=== PATIENT | female | born 1955 | race Caucasian/White ===

== ENCOUNTER 2017-06-26 11:13 | Inpatient (IN) | payer MEDICARE, MEDICAID ==
--- NOTE | 2017-06-26 12:02 | ED Physician Chart ---
ED Chief Complaint/HPI - Patient Information Date Seen:: 06/26/17 Time Seen:: 12:01 Chief Complaint:: PAINFUL RIGHT KNEE FOR MULTIPLE WEEKS AGO. History of Present Illness:: THIS 61 YEAR OLD FEMALE HAD KNEE REPLACEMENT SURG MANY YEARS AGO. SHE HAS HAD PAIN IN THE KNEE EVER SINCE THE SURGERY. SHE HAS HAD INCREASED PAIN IN THE KNEE OVER THE PAS NUMBER OVER THE PAST COUPLE OF WEEKS. SHE HAS HAD NO ASSOCIATED FEVER ORFEW THE PAIN LEVEL IS 10/10 IN SEVERITY. SHE IS UNABLE TO WEIGHT BEAR WITH THE RT LOWER EXTREMITY. SHE DENIES ANY FALLS OR TRAUMA TO THE RT KNEE, THE KNEE IS MORE SWOLLEN AND HASTURNED RED. SHE HAS NO ROM IN THE RT KNEE DUE TO SEVERE PAIN. Allergies:: Allergies Allergy/AdvReac Type Severity Reaction Status Date / Time aspirin Allergy Verified 06/26/17 11:45 codeine Allergy Verified 06/26/17 11:45 Vitals:: Vital Signs - 8 hr 06/26/17 11:45 Temp 98.4 F HR 98 RR 20 BP 120/65 O2 Sat % 96 ED Past Medical History - Past Medical History Past Medical History: DM, CAD, Dyslipidemia, Dementia ( OSTEOARTHRITIS, NON- SMOKER, NO ALCOHOL, NO DRUG USE), Other Family Medical History - Family Member Mother History Unknown: Yes ED Physical Exam - Physical Examination General/Constitutional: Awake, Well-developed, well-nourished, Non-toxic appearing Other Gen/Cons comments:: SEVERE DISTRESS FROM PAIN IN THE RIGHT KNEE. Eyes: PERRL, EOMI Skin: No rash, No skin lesions, No ecchymosis, Well hydrated, No lymphadenopathy ENMT: External ears, nose nl, Nasal exam nl, Lips, teeth, gums nl, Tonsils nl Other ENMT comments:: GOOD HYDRATION Neck: Nontender, No JVD, No nuchal rigidity, No mass Cardio Vascular: No murmur, gallop, rubs, NL S1 S2, Carotid/Femoral/Distal pulses equal bilaterally GI: No tenderness/rebounding/guarding, No organomegaly, No hernia, Normal BS's, Nondistended, No mass/bruits, No McBurney tenderness ( RECTAL EXAM DEFERRED AT MY DISCRETION.) : No CVA tenderness Other comments:: PELVIC EXAM DEFERRED. Other Misc comments:: RIGHT HIP IS MARKEDLY SWOLLEN AND WITH A REDDISH BLUE DISCOLORATION. THERE IS NO RANGE OF MOTION DUE TO SEVERE PAIN. DISTAL SENSATION IS INTACT TO LIGHT TOUCH. PEOPLE PULSES ARE INTACT IN BOTH LOWER EXTREMITIES. ED Labs/Radiology/EKG Results - Lab Results Results: Laboratory Results - last 24 hr 06/26/17 06/26/17 12:40 12:40 WBC 9.0 RBC 3.85 Hgb 11.7 L Hct 35.3 L MCV 91.7 MCH 30.4 MCHC Differential 33.2 RDW 13.0 Plt Count 333 MPV 7.1 Neutrophils % 67.3 Lymphocytes % 20.9 Monocytes % 8.2 Eosinophils % 2.8 Basophils % 0.8 Sodium 134 L Potassium 3.9 Chloride 103 Carbon Dioxide 26.0 Anion Gap 8.9 BUN 21 Creatinine 0.6 Est GFR ( Amer) > 60.0 Est GFR (Non-Af Amer) > 60.0 BUN/Creatinine Ratio 35.0 Glucose 189 H Calcium 8.9 Total Bilirubin 0.4 AST 19 ALT 35 Alkaline Phosphatase 412 H Total Protein 6.3 Albumin 3.6 L Globulin 2.7 Albumin/Globulin Ratio 1.3 Laboratory Last Values WBC 9.0 Th/cmm (4.8-10.8) 06/26/17 12:40 RBC 3.85 Mil/cmm (3.80-5.10) 06/26/17 12:40 Hgb 11.7 gm/dL (12-16) L 06/26/17 12:40 Hct 35.3 % (41.0-60) L 06/26/17 12:40 MCV 91.7 fl (81-100) 06/26/17 12:40 MCH 30.4 pg (27.0-31.0) 06/26/17 12:40 MCHC Differential 33.2 pg (28.0-36.0) 06/26/17 12:40 RDW 13.0 % (11.5-20.0) 06/26/17 12:40 Plt Count 333 Th/cmm (150-400) 06/26/17 12:40 MPV 7.1 fl 06/26/17 12:40 Neutrophils % 67.3 % (40.0-80.0) 06/26/17 12:40 Lymphocytes % 20.9 % (20.0-50.0) 06/26/17 12:40 Monocytes % 8.2 % (2.0-10.0) 06/26/17 12:40 Eosinophils % 2.8 % (0.0-5.0) 06/26/17 12:40 Basophils % 0.8 % (0.0-2.0) 06/26/17 12:40 Sodium 134 mEq/L (136-145) L 06/26/17 12:40 Potassium 3.9 mEq/L (3.5-5.1) 06/26/17 12:40 Chloride 103 mEq/L (98-107) 06/26/17 12:40 Carbon Dioxide 26.0 mEq/L (21.0-31.0) 06/26/17 12:40 Anion Gap 8.9 (7.0-16.0) 06/26/17 12:40 BUN 21 mg/dL (7-25) 06/26/17 12:40 Creatinine 0.6 mg/dL (0.6-1.2) 06/26/17 12:40 Est GFR ( Amer) > 60.0 ml/min (>90) 06/26/17 12:40 Est GFR (Non-Af Amer) > 60.0 ml/min 06/26/17 12:40 BUN/Creatinine Ratio 35.0 06/26/17 12:40 Glucose 189 mg/dL (70-105) H 06/26/17 12:40 Calcium 8.9 mg/dL (8.6-10.3) 06/26/17 12:40 Total Bilirubin 0.4 mg/dL (0.3-1.0) 06/26/17 12:40 AST 19 U/L (13-39) 06/26/17 12:40 ALT 35 U/L (7-52) 06/26/17 12:40 Alkaline Phosphatase 412 U/L (34-104) H 06/26/17 12:40 Total Protein 6.3 gm/dL (6.0-8.3) 06/26/17 12:40 Albumin 3.6 gm/dL (3.7-5.3) L 06/26/17 12:40 Globulin 2.7 gm/dL 06/26/17 12:40 Albumin/Globulin Ratio 1.3 (1.0-1.8) 06/26/17 12:40 X-RAY STUDIES OF THE RIGHT KNEE SHOWS A COMMINUTED OBLIQUE FRACTURE INVOLVING THE DISTAL FEMORAL CONDYLE. THE MECHANICAL HARDWARE IS DISPLACED FROM THE DISTAL FEMUR FRAGMENT. SKIN IS INTACT OVER THE KNEE. ED Assessment - Assessment General Assessment: CASE SUMMARY: THIS 61-YEAR-OLD FEMALE HAD A KNEE REPLACEMENT A NUMBER OF YEARS AGO. FOR THE PAST COUPLE OF WEEKS THE PATIENT HAS HAD INCREASED PAIN AND IS UNABLE TO WEIGHT BEAR. MANY ITSELF IS MARKEDLY SWOLLEN WITH OBLITERATION OF NORMAL LANDMARKS. X-RAY EXAMINATION SHOWS A COMMINUTED FRACTURE OF THE DISTAL FEMUR AND DISPLACEMENT OF THE MECHANICAL HARDWARE IN THE RIGHT KNEE. THE PATIENT WILL BE ADMITTED TO DR. AVILES WHO WILL OBTAIN ORTHOPEDIC CONSULTATION. ADMITTED TO A MEDICAL BED IN STABLE CONDITION. ED Septic Shock - . Is Septic Shock (SBP<90, OR Lactate>4 mmol\L) present?: No - <6hrs of presentation: Vital Signs: Vital Signs - 8 hr 06/26/17 11:45 Temp 98.4 F HR 98 RR 20 BP 120/65 O2 Sat % 96 ED Discharge Plan - Patient Disposition Admit/Discharge/Transfer: Acute Care w/in this hosp
[2017-06-26] MEDS ORDERED: Sodium Chloride 0.9% 1,000 ML IV ONE (12:31)
[2017-06-26 12:53] LABS: % BASOPHILS 0.8 % (0.0-2.0); % EOSINOPHILS 2.8 % (0.0-5.0); % LYMPHOCYTES 20.9 % (20.0-50.0); % MONOCYTES 8.2 % (2.0-10.0); % NEUTROPHILS 67.3 % (40.0-80.0); BASOPHILE ABSOLUTE 0.1 Th/cumm (0-0.2); EOSINOPHILE ABSOLUTE 0.3 Th/cmm (0.1-0.4); HEMATOCRIT 35.3 % (41.0-60); HEMOGLOBIN 11.7 gm/dL (12-16); LYMPHOCYTE ABSOLUTE 1.9 Th/cmm (1.5-3.0); MEAN CELL VOLUME 91.7 fl (81-100); MEAN CORPUSCULAR HEMOGLOBIN 30.4 pg (27.0-31.0); MEAN CORPUSCULAR HGB CONC 33.2 pg (28.0-36.0); MEAN PLATELET VOLUME 7.1 fl; MONOCYTE ABSOLUTE 0.7 Th/cmm (0.3-1.0); PLATELET COUNT 333 Th/cmm (150-400); RED BLOOD COUNT 3.85 Mil/cmm (3.80-5.10)
[2017-06-26 13:10] LABS: ALB/GLOB RATIO 1.3 (1.0-1.8); ALBUMIN 3.6 gm/dL (3.7-5.3); ALKALINE PHOSPHATASE 412 U/L (34-104); ANION GAP 8.9 (7.0-16.0); BILIRUBIN,TOTAL 0.4 mg/dL (0.3-1.0); BUN - UREA NITROGEN 21 mg/dL (7-25); CALCIUM SERUM 8.9 mg/dL (8.6-10.3); CHLORIDE 103 mEq/L (98-107); CREATININE - SERUM 0.6 mg/dL (0.6-1.2); GFR AFRICAN-AMERICAN > 60.0 ml/min (>90); GFR NON AFRICAN-AMERICAN > 60.0 ml/min; GLUCOSE 189 mg/dL (70-105); POTASSIUM SERUM 3.9 mEq/L (3.5-5.1); SGOT 19 U/L (13-39); SGPT/ALT 35 U/L (7-52); SODIUM SERUM 134 mEq/L (136-145); TOTAL PROTEIN,SERUM 6.3 gm/dL (6.0-8.3)
[2017-06-26] MEDS ORDERED: Morphine Sulfate 2 mg/mL 1mL Syr IVP PRN (16:51)
[2017-06-26] MEDS ORDERED: GLUCAGON HCl 1 MG KIT IM PRN (16:53)
[2017-06-26] MEDS ORDERED: Pneumococcal Vaccine 0.5 mL Vial IM ONE (18:38)
[2017-06-26 20:45] LABS: A1C % 5.9 % (4.0-6.0)
[2017-06-26] MEDS ORDERED: Non-Formulary Item 1 EA (Melatonin [Melatonin] 3 MG) PO SCH (21:00)
[2017-06-26] MEDS: Cefepime 1 GM in Sodium Chloride 0.9% 50 ML IV SCH (22:03)
--- NOTE | 2017-06-26 23:24 | History & Physical ---
ADMIT DATE: 06/26/2017 CHIEF COMPLAINT: Right knee swelling and pain. HISTORY OF PRESENT ILLNESS: This is a 61-year-old female with underlying history of old CVA, diabetes, hypertension, hyperlipidemia, DJD, prior history of hip and left knee fracture, who lives in a nursing facility, was reported to have right knee swelling and pain noticed by nursing staff, so the patient was sent to the Emergency Room where the patient had an x-ray of the right knee done suggestive of right knee fracture with possible septic arthritis was identified, so the patient was admitted for further treatments. The patient has underlying advanced dementia, very poor communication skills, unable to communicate well with the patient. She is well known to me from the [facility] stay. PAST MEDICAL HISTORY: As per HPI. PAST SURGICAL HISTORY: He had a hip surgery in the past. FAMILY HISTORY: Noncontributory. SOCIAL HISTORY: [facility] resident. No past or present alcohol, tobacco or street drug use. CURRENT MEDICATIONS: Levemir, Zestril, vancomycin, Lovenox, cefepime, Coreg, Concordia, Tylenol, morphine, Dilantin, Protonix. REVIEW OF SYSTEMS: Right knee pain. No fever, no chills, no diarrhea, no vomiting, no breathing difficulties, no chest pain or any other complaint reported. PHYSICAL EXAMINATION: VITAL SIGNS: Temperature 98.1, pulse 83, respirations 18, blood pressure 109/57. Pain 4/10. HEART: S1, S2 normal. LUNGS: Clear to auscultation. ABDOMEN: Soft, nontender, some distention noted. NEUROLOGIC: The patient is awake, but confused, grossly nonfocal. EXTREMITIES: Right knee swelling, warmth to touch, tender. Otherwise, negative for any leg swelling or calf tenderness noted. AVAILABLE LABORATORY DATA: WBC 9.0, hemoglobin 11.7, hematocrit 35.3, platelet 333. Sodium 130, potassium 3.9, BUN 23.6. A1c 5.9, AST 90, ALT 35, alkaline phosphatase 1412. Ammonia 93. Troponin less than 0.01, albumin 3.6. Serum ketones negative. ASSESSMENT: 1. Right distal femur fracture. 2. Right knee painful swelling, rule out septic arthritis. 3. Old cerebrovascular accident late effect. 4. Hypertension. 5. Dysphagia 6. Hyperlipidemia. 7. Hip and knee degenerative joint disease. 8. Dementia. 9. Psychiatric mental disorders. PLAN: The patient admitted to [facility]/surg floor. The patient was started on IV vancomycin and cefepime. ID was consulted. The patient is on IV morphine, Concordia for pain control. Ortho has been consulted. Ortho was notified about the right knee fracture results. The patient will be put on knee immobilizer. Further surgical plan per Orthopedic. The patient's home medications reconciled and continued. Blood sugar with Accu-Cheks. DVT prophylaxis with Lovenox. Home medication has been reconciled. The patient's condition and plan discussed with the nursing staff. JOB# [id number] ANGELY
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
[2017-06-27] MEDS: Pantoprazole 40 mg EC Tab PO SCH (07:04)
--- NOTE | 2017-06-27 07:48 | Diagnostic Imaging Report ---
Portable chest x-ray HISTORY: Cough The heart size is normal. Slight accentuation of the lower interstitial lung markings. A vertically oriented linear density seen in the right lower lobe most likely related to scarring. However, no other acute focal processes are seen. No hilar or mediastinal abnormalities. IMPRESSION: 1. Vertically oriented linear density within the right lower lobe probably related to scarring. Findings are associated with accentuation of the lower interstitial lung markings. However, no other focal processes are seen.
[2017-06-27] MEDS: Multivitamin w/ Minerals Tab PO SCH (09:05)
[2017-06-27] MEDS: Cefepime 1 GM in Sodium Chloride 0.9% 50 ML IV SCH ×2 (09:06→21:59)
[2017-06-27] MEDS: Enoxaparin 40 mg/0.4 mL 0.4mL Syr SUBQ SCH (09:07)
[2017-06-27] MEDS: Insulin Detemir 100 units/mL 10mL Vial SUBQ SCH (09:22)
--- NOTE | 2017-06-27 11:04 | Diagnostic Imaging Report ---
Right knee (4 views) HISTORY: Pain, trauma Exam demonstrates a severely displaced, comminuted, angulated fracture of the distal femur associated with an adjacent right knee arthroplasty. Severe extensive vascular calcification noted. IMPRESSION: 1. Right knee arthroplasty associated with a severely displaced, angulated fracture of the distal femur extending into the supracondylar region. 2. Severe atherosclerotic vascular changes
[2017-06-27] MEDS: Acetaminophen 500 MG TAB PO PRN (11:33)
[2017-06-27 14:36] LABS: ALB/GLOB RATIO 1.2 (1.0-1.8); ALBUMIN 3.3 gm/dL (3.7-5.3); ALKALINE PHOSPHATASE 361 U/L (34-104); ANION GAP 10.9 (7.0-16.0); BILIRUBIN,TOTAL 0.4 mg/dL (0.3-1.0); BUN - UREA NITROGEN 22 mg/dL (7-25); CALCIUM SERUM 8.8 mg/dL (8.6-10.3); CARBON DIOXIDE 21.3 mEq/L (21.0-31.0); CHLORIDE 104 mEq/L (98-107); CREATININE - SERUM 0.7 mg/dL (0.6-1.2); GFR AFRICAN-AMERICAN > 60.0 ml/min (>90); GFR NON AFRICAN-AMERICAN > 60.0 ml/min; GLUCOSE 188 mg/dL (70-105); POTASSIUM SERUM 4.2 mEq/L (3.5-5.1); SGOT 21 U/L (13-39); SGPT/ALT 27 U/L (7-52); SODIUM SERUM 132 mEq/L (136-145)
[2017-06-27 14:37] LABS: % BASOPHILS 0.4 % (0.0-2.0); % EOSINOPHILS 4.1 % (0.0-5.0); % LYMPHOCYTES 23.9 % (20.0-50.0); % MONOCYTES 5.7 % (2.0-10.0); % NEUTROPHILS 65.9 % (40.0-80.0); EOSINOPHILE ABSOLUTE 0.3 Th/cmm (0.1-0.4); HEMATOCRIT 33.3 % (41.0-60); HEMOGLOBIN 11.2 gm/dL (12-16); LYMPHOCYTE ABSOLUTE 1.7 Th/cmm (1.5-3.0); MEAN CELL VOLUME 90.8 fl (81-100); MEAN CORPUSCULAR HEMOGLOBIN 30.5 pg (27.0-31.0); MEAN CORPUSCULAR HGB CONC 33.6 pg (28.0-36.0); MONOCYTE ABSOLUTE 0.4 Th/cmm (0.3-1.0); NEUTROPHILE ABSOLUTE 4.8 Th/cmm (1.8-8.0); PLATELET COUNT 290 Th/cmm (150-400); RED BLOOD COUNT 3.67 Mil/cmm (3.80-5.10); RED CELL DISTRIBUTION WIDTH 12.8 % (11.5-20.0); WHITE BLOOD COUNT 7.2 Th/cmm (4.8-10.8)
--- NOTE | 2017-06-27 16:27 | Consultation ---
Consult Note - Consult Note Service Date: 06/27/17 Referring Physician: Nnamdi Jc Consult Note: PHYSICIAN Consultation Note: Date of Admission: 06/26/17 Purpose of Consultation: Chief Complaint: Patient SE LOYA was admitted to location Medical/ Surgical Unit I with RIGHT KNEE SWELLING. History of Present Illness: Patient is 61-year-old female with a past medical history of CVA, diabetes mellitus type 2, hypertension, hyperlipidemia, DJD, UTI, treated by Maxipine found to have swelling of right thigh and knee with right foot and leg where externally rotated. X-ray suggested angulated fracture of right distal femur just proximal to the right knee prosthesis. There was question of septic arthritis. So ID consult was called for further antibiotic management. Meanwhile, Vancomycin iV and maxipime were started. Past Medical History: CVA, diabetes mellitus type 2, hypertension, hyperlipidemia, DJD, UTI, treated by Maxipine , right knee TKR. Allergies Allergy/AdvReac Type Severity Reaction Status Date / Time aspirin Allergy Verified 06/26/17 11:45 codeine Allergy Verified 06/26/17 11:45 Vital Signs Temp 98.0 F 06/27/17 12:09 Pulse 93 06/27/17 12:09 Resp 20 06/27/17 12:09 BP 110/60 06/27/17 12:09 Pulse Ox 98 06/27/17 12:09 Intake & Output 06/26/17 06/27/17 06/27/17 18:59 06:59 18:59 Intake Total 300 300 Balance 300 300 Weight (lbs) 68.81 kg 68.804 kg Intake: Intake, IV Amount 300 300 Cefepime 1 gm In Sodium 50 50 Chloride 0.9% 50 ml @ 100 mls/hr IV Q12HR JOHN Rx#: [id number] Vancomycin HCl 1 gm In 250 Sodium Chloride 0.9% 250 ml @ 125 mls/hr IV Q12HR JOHN Rx#:[id number] Vancomycin HCl 1.25 gm In 250 Sodium Chloride 0.9% 250 ml @ 165 mls/hr IV Q12H JOHN Rx#:[id number] Other: # Voids 1 # Bowel Movements 0 Weight Source Bedscale Bedscale Laboratory Results - last 24 hr 06/27/17 06/27/17 06/27/17 14:12 14:12 14:34 WBC 7.2 RBC 3.67 L Hgb 11.2 L Hct 33.3 L MCV 90.8 MCH 30.5 MCHC Differential 33.6 RDW 12.8 Plt Count 290 MPV 7.0 Neutrophils % 65.9 Lymphocytes % 23.9 Monocytes % 5.7 Eosinophils % 4.1 Basophils % 0.4 PTT (Actin FS) 22.1 L Sodium 132 L Potassium 4.2 Chloride 104 Carbon Dioxide 21.3 Anion Gap 10.9 BUN 22 Creatinine 0.7 Est GFR ( Amer) > 60.0 Est GFR (Non-Af Amer) > 60.0 BUN/Creatinine Ratio 31.4 Glucose 188 H Calcium 8.8 Total Bilirubin 0.4 AST 21 ALT 27 Alkaline Phosphatase 361 H Total Protein 6.0 Albumin 3.3 L Globulin 2.7 Albumin/Globulin Ratio 1.2 Home Medication Medication Instructions Recorded Type Phenytoin [Dilantin*] 150 mg PO BID 11/05/14 History GLUCAGON HCl [Glucagen] 1 mg IM PRN PRN 01/01/15 History Hydrocodone/Acetaminophen [Laclede 1 tab PO Q6H PRN 01/01/15 History 325 mg-5 mg*] Insulin Aspart, Recombinant 0 units SUBQ BIDAC PRN 01/01/15 History [NovoLOG] Acetaminophen [Tylenol Extra 500 mg PO Q4HR PRN 06/26/17 History Strength] Ascorbic Acid [Vitamin C] 500 mg PO DAILY 06/26/17 History Carvedilol [Coreg] 3.125 mg PO BID 06/26/17 History Cefepime HCl [Maxipime] 1 gm IV Q12H 06/26/17 History Hydrocortisone 1% Cream 1 appl TP PRN PRN 06/26/17 History [Hydrocortisone 1%] Insulin Detemir [Levemir] 15 unit SQ DAILY 06/26/17 History Lactobacillus Acidophilus 1 each PO BID 06/26/17 History [Acidophilus Lactobacillus] Lactulose 20 gm PO HS 06/26/17 History Lisinopril [Prinivil] 5 mg PO DAILY 06/26/17 History Melatonin 3 mg PO HS 06/26/17 History Multivitamin w/ Minerals 1 tab PO DAILY 06/26/17 History [Theragran M] Pantoprazole [Protonix] 40 mg PO QDAC 06/26/17 History Current Medications Generic Name Dose Route Start Last Admin Trade Name Freq PRN Reason Stop Dose Admin Acetaminophen 500 mg 06/26/17 16:53 06/27/17 11:33 Tylenol Extra Strength PO 08/25/17 16:52 500 mg Q4HR PRN Administration Mild Pain or Fever >101 Acetaminophen/Hydrocodone Bitart 1 tab 06/26/17 16:53 Laclede 5mg/325mg PO 08/25/17 16:52 Q6H PRN Pain (Moderate) Ascorbic Acid 500 mg 06/27/17 09:00 06/27/17 09:04 Vitamin C PO 08/26/17 08:59 500 mg DAILY JOHN Administration Carvedilol 3.125 mg 06/26/17 17:00 06/27/17 09:05 Coreg PO 08/25/17 16:59 Not Given BID JOHN Enoxaparin Sodium 40 mg 06/27/17 09:00 06/27/17 09:07 Lovenox SUBQ 08/26/17 08:59 40 mg DAILY JOHN Administration Glucagon 1 mg 06/26/17 16:53 Glucagen IM 08/25/17 16:52 PRN PRN LOW BLOOD SUGAR Cefepime HCl 1 gm/ Sodium 50 mls @ 100 mls/hr 06/26/17 21:00 06/27/17 09:40 Chloride IV 08/25/17 20:59 Infused Q12HR JOHN Infusion Vancomycin HCl 1.25 gm/ Sodium 250 mls @ 165 mls/hr 06/27/17 09:00 06/27/17 11:30 Chloride IV 08/26/17 08:59 Infused Q12H JOHN Infusion Insulin Detemir 15 units 06/27/17 09:00 06/27/17 09:22 Levemir Insulin SUBQ 08/26/17 08:59 15 units DAILY JOHN Administration Protocol Lisinopril 5 mg 06/27/17 09:00 06/27/17 09:05 Zestril PO 08/26/17 08:59 Not Given DAILY JOHN Miscellaneous 3 mg 06/26/17 21:00 Melatonin [Melatonin] PO 08/25/17 20:59 HS JOHN Miscellaneous 1 ea 06/26/17 17:00 Vancomycin Iv Per Pharmacy [facility] 08/25/17 16:59 PRN JOHN Morphine Sulfate 2 mg 06/27/17 15:08 Morphine IVP 08/25/17 16:50 Q4HR PRN Pain (Moderate) Pantoprazole Sodium 40 mg 06/27/17 07:30 06/27/17 07:04 Protonix PO 08/26/17 07:29 40 mg QDAC JOHN Administration Phenytoin 200 mg 06/27/17 09:00 06/27/17 09:04 Dilantin PO 08/26/17 08:59 200 mg QAM JOHN Administration Phenytoin 100 mg 06/27/17 17:00 Dilantin PO 08/26/17 16:59 QPM JOHN Review of Systems: A 12 point ROS was reviewed with the pertinent positive and negatives noted in the HPI. Patient is very poor historian and not given proper history. Patient is also noncompliant Social History Smoking Status Smoker, status unknown Drug Use No Alcohol Use No She lives at nursing facility. Physical Exam: General: Comfortable, cachectic, not in acute distress. HEENT: Head: Normocephalic, atraumatic. Oral cavity: Moist, pink tongue is: No pallor neck tests. PERRLA. Neck: Supple, no JVD. No use of X his neck muscles. Cardio: S1 and S2 within normal limits regular rhythm. Respiratory: Vesicular breath sound, no crackles no wheezing. Abdominal: Soft, nontender, nondistended bowel sounds present. Genital/Urinary: Deferred. Extremities: No cyanosis no clubbing no edema patient's right foot, right leg, and right knee are externally rotated with the stabilizers in place. Neurological: Alert, awake, oriented 3. Assessment: 1. Swelling of the right knee likely reactive versus septic arthritis. periprosthetic fracture. 2. Fracture of distal right femur. 3. Diabetes mellitus type 2. 4. Hypertension. 5. Hyperlipidemia. 6. UTI. 7. TKR of right knee. Plan: Continue vancomycin and maxipime. ORIF planned for tomorrow. Check urinalysis and urine culture Thank you, Dr. Jc, for involving me in taking care of this patient. Signed, Tyler Crum M.D. [id number]
--- NOTE | 2017-06-27 18:43 | General Progress Note ---
Subjective - Review of Systems Service Date: 06/27/17 Subjective: Patient seen and examined no new concern reported scheduled for ORIF in am per ORTHO Objective - Results Result Diagrams: 06/27/17 14:34 06/27/17 14:12 Recent Labs: Laboratory Last Values WBC 7.2 Th/cmm (4.8-10.8) 06/27/17 14:34 RBC 3.67 Mil/cmm (3.80-5.10) L 06/27/17 14:34 Hgb 11.2 gm/dL (12-16) L 06/27/17 14:34 Hct 33.3 % (41.0-60) L 06/27/17 14:34 MCV 90.8 fl (81-100) 06/27/17 14:34 MCH 30.5 pg (27.0-31.0) 06/27/17 14:34 MCHC Differential 33.6 pg (28.0-36.0) 06/27/17 14:34 RDW 12.8 % (11.5-20.0) 06/27/17 14:34 Plt Count 290 Th/cmm (150-400) 06/27/17 14:34 MPV 7.0 fl 06/27/17 14:34 Neutrophils % 65.9 % (40.0-80.0) 06/27/17 14:34 Lymphocytes % 23.9 % (20.0-50.0) 06/27/17 14:34 Monocytes % 5.7 % (2.0-10.0) 06/27/17 14:34 Eosinophils % 4.1 % (0.0-5.0) 06/27/17 14:34 Basophils % 0.4 % (0.0-2.0) 06/27/17 14:34 PTT (Actin FS) 22.1 SECONDS (26.0-38.0) L 06/27/17 14:12 Sodium 132 mEq/L (136-145) L 06/27/17 14:12 Potassium 4.2 mEq/L (3.5-5.1) 06/27/17 14:12 Chloride 104 mEq/L (98-107) 06/27/17 14:12 Carbon Dioxide 21.3 mEq/L (21.0-31.0) 06/27/17 14:12 Anion Gap 10.9 (7.0-16.0) 06/27/17 14:12 BUN 22 mg/dL (7-25) 06/27/17 14:12 Creatinine 0.7 mg/dL (0.6-1.2) 06/27/17 14:12 Est GFR ( Amer) > 60.0 ml/min (>90) 06/27/17 14:12 Est GFR (Non-Af Amer) > 60.0 ml/min 06/27/17 14:12 BUN/Creatinine Ratio 31.4 06/27/17 14:12 Glucose 188 mg/dL (70-105) H 06/27/17 14:12 Hemoglobin A1c % 5.9 % (4.0-6.0) 06/26/17 13:45 Whole Bld Lactic Acid 1.22 mmol/L (0.60-1.99) 06/26/17 12:40 Calcium 8.8 mg/dL (8.6-10.3) 06/27/17 14:12 Total Bilirubin 0.4 mg/dL (0.3-1.0) 06/27/17 14:12 AST 21 U/L (13-39) 06/27/17 14:12 ALT 27 U/L (7-52) 06/27/17 14:12 Alkaline Phosphatase 361 U/L (34-104) H 06/27/17 14:12 Ammonia 93 umol/L (16-53) H 06/26/17 12:40 Troponin I < 0.01 ng/mL (0.01-0.05) L 06/26/17 12:40 Total Protein 6.0 gm/dL (6.0-8.3) 06/27/17 14:12 Albumin 3.3 gm/dL (3.7-5.3) L 06/27/17 14:12 Globulin 2.7 gm/dL 06/27/17 14:12 Albumin/Globulin Ratio 1.2 (1.0-1.8) 06/27/17 14:12 Ethyl Alcohol < 10 mg/dL (0-10) 06/26/17 12:40 Serum Ketones NEGATIVE (NEGATIVE) 06/26/17 12:40 - Physical Exam Vitals and I&O: Vital Signs Temp 98.0 F 05/06/18 12:09 Pulse 98 06/27/17 17:40 Resp 20 06/27/17 12:09 BP 141/58 06/27/17 17:40 Pulse Ox 98 06/27/17 12:09 Intake & Output 06/26/17 06/27/17 06/27/17 18:59 06:59 18:59 Intake Total 300 700 Balance 300 700 Weight (lbs) 68.81 kg 68.804 kg Intake: Intake, IV Amount 300 300 Cefepime 1 gm In Sodium 50 50 Chloride 0.9% 50 ml @ 100 mls/hr IV Q12HR [facility] Rx#: [id number] Vancomycin HCl 1 gm In 250 Sodium Chloride 0.9% 250 ml @ 125 mls/hr IV Q12HR [facility] Rx#:[id number] Vancomycin HCl 1.25 gm In 250 Sodium Chloride 0.9% 250 ml @ 165 mls/hr IV Q12H [facility] Rx#:[id number] Oral 400 Other: # Voids 1 3 # Bowel Movements 0 1 Weight Source Bedscale Bedscale Active Medications: Current Medications Acetaminophen (Tylenol Extra Strength) 500 mg PO Q4HR PRN PRN Reason: Mild Pain or Fever >101 Stop: 08/25/17 16:52 Last Admin: 06/27/17 11:33 Dose: 500 mg Acetaminophen/Hydrocodone Bitart (Ider 5mg/325mg) 1 tab PO Q6H PRN PRN Reason: Pain (Moderate) Stop: 08/25/17 16:52 Ascorbic Acid (Vitamin C) 500 mg PO DAILY [facility] Stop: 08/26/17 08:59 Last Admin: 06/27/17 09:04 Dose: 500 mg Carvedilol (Coreg) 3.125 mg PO BID [facility] Stop: 08/25/17 16:59 Last Admin: 06/27/17 17:40 Dose: 3.125 mg Enoxaparin Sodium (Lovenox) 40 mg SUBQ DAILY [facility] Stop: 08/26/17 08:59 Last Admin: 06/27/17 09:07 Dose: 40 mg Glucagon (Glucagen) 1 mg IM PRN PRN PRN Reason: LOW BLOOD SUGAR Stop: 08/25/17 16:52 Cefepime HCl 1 gm/ Sodium (Chloride) 50 mls @ 100 mls/hr IV Q12HR [facility] Stop: 08/25/17 20:59 Last Infusion: 06/27/17 09:40 Dose: Infused Vancomycin HCl 1.25 gm/ Sodium (Chloride) 250 mls @ 165 mls/hr IV Q12H [facility] Stop: 08/26/17 08:59 Last Infusion: 06/27/17 11:30 Dose: Infused Insulin Detemir (Levemir Insulin) 15 units SUBQ DAILY JOHN PRN Reason: Protocol Stop: 08/26/17 08:59 Last Admin: 06/27/17 09:22 Dose: 15 units Lisinopril (Zestril) 5 mg PO DAILY JOHN Stop: 08/26/17 08:59 Last Admin: 06/27/17 09:05 Dose: Not Given Miscellaneous (Melatonin [Melatonin]) 3 mg PO HS [facility] Stop: 08/25/17 20:59 Miscellaneous (Vancomycin Iv Per Pharmacy) 1 ea MC PRN [facility] Stop: 08/25/17 16:59 Morphine Sulfate (Morphine) 2 mg IVP Q4HR PRN PRN Reason: Pain (Moderate) Stop: 08/25/17 16:50 Pantoprazole Sodium (Protonix) 40 mg PO QDAC JOHN Stop: 08/26/17 07:29 Last Admin: 06/27/17 07:04 Dose: 40 mg Phenytoin (Dilantin) 200 mg PO QAM JOHN Stop: 08/26/17 08:59 Last Admin: 06/27/17 09:04 Dose: 200 mg Phenytoin (Dilantin) 100 mg PO QPM JOHN Stop: 08/26/17 16:59 Last Admin: 06/27/17 17:40 Dose: 100 mg Cardiovascular: Regular rate Lungs: Clear to auscultation - Procedures Procedures: Procedures Procedure Code Date GROUP PSYCHOTHERAPY 76416 01/01/15 GROUP PSYCHOTHERAPY [id number] 01/01/15 OTHER GROUP THERAPY 94.44 11/05/14 Assessment/Plan - Assessment Assessment: Right Femur fracture UTI DM II HTN - Plan Plan: ORIF in am Patient is medically stable for her surgery IV antibiotics Knee immobilizer DVT prophylaxis Plan of care discussed with nursing staff
[2017-06-27] MEDS: Morphine Sulfate 4 mg/mL 1mL Syr IVP PRN (22:51)
[2017-06-28] MEDS: Morphine Sulfate 4 mg/mL 1mL Syr IVP PRN ×3 (03:20→20:42)
[2017-06-28 05:36] LABS: % BASOPHILS 0.8 % (0.0-2.0); % EOSINOPHILS 5.9 % (0.0-5.0); % LYMPHOCYTES 23.2 % (20.0-50.0); % MONOCYTES 5.8 % (2.0-10.0); % NEUTROPHILS 64.3 % (40.0-80.0); BASOPHILE ABSOLUTE 0.1 Th/cumm (0-0.2); EOSINOPHILE ABSOLUTE 0.4 Th/cmm (0.1-0.4); HEMATOCRIT 31.9 % (41.0-60); HEMOGLOBIN 10.9 gm/dL (12-16); LYMPHOCYTE ABSOLUTE 1.7 Th/cmm (1.5-3.0); MEAN CELL VOLUME 91.7 fl (81-100); MEAN CORPUSCULAR HEMOGLOBIN 31.3 pg (27.0-31.0); MEAN CORPUSCULAR HGB CONC 34.1 pg (28.0-36.0); MEAN PLATELET VOLUME 6.9 fl; MONOCYTE ABSOLUTE 0.4 Th/cmm (0.3-1.0); NEUTROPHILE ABSOLUTE 4.9 Th/cmm (1.8-8.0); PLATELET COUNT 276 Th/cmm (150-400); RED BLOOD COUNT 3.48 Mil/cmm (3.80-5.10); RED CELL DISTRIBUTION WIDTH 12.7 % (11.5-20.0); WHITE BLOOD COUNT 7.5 Th/cmm (4.8-10.8)
[2017-06-28 05:48] LABS: INR 0.93 (0.5-1.4); PROTHROMBIN TIME (TEST) 9.7 SECONDS (9.5-11.5)
[2017-06-28 05:52] LABS: ANION GAP 9.1 (7.0-16.0); BUN - UREA NITROGEN 18 mg/dL (7-25); CALCIUM SERUM 9.1 mg/dL (8.6-10.3); CARBON DIOXIDE 25.7 mEq/L (21.0-31.0); CHLORIDE 104 mEq/L (98-107); CREATININE - SERUM 0.6 mg/dL (0.6-1.2); GFR AFRICAN-AMERICAN > 60.0 ml/min (>90); GFR NON AFRICAN-AMERICAN > 60.0 ml/min; GLUCOSE 131 mg/dL (70-105); POTASSIUM SERUM 3.8 mEq/L (3.5-5.1); SODIUM SERUM 135 mEq/L (136-145)
[2017-06-28] MEDS: Pantoprazole 40 mg EC Tab PO SCH (08:22)
[2017-06-28] MEDS: Multivitamin w/ Minerals Tab PO SCH (09:28)
[2017-06-28] MEDS: Enoxaparin 40 mg/0.4 mL 0.4mL Syr SUBQ SCH (09:55)
[2017-06-28] MEDS: Insulin Detemir 100 units/mL 10mL Vial SUBQ SCH (09:55)
[2017-06-28] MEDS: Cefepime 1 GM in Sodium Chloride 0.9% 50 ML IV SCH ×2 (10:15→20:41)
--- NOTE | 2017-06-28 13:55 | Infectious Disease Prog Note ---
Infectious Disease Subjective - Review of Systems Service Date: 06/28/17 Events since last encounter: Surgery postponed. Subjective: No fever, no chills. Infectious Disease Objective - Results Result Diagrams: 06/28/17 05:20 06/28/17 05:20 Recent Labs: Laboratory Last Values WBC 7.5 Th/cmm (4.8-10.8) 06/28/17 05:20 RBC 3.48 Mil/cmm (3.80-5.10) L 06/28/17 05:20 Hgb 10.9 gm/dL (12-16) L 06/28/17 05:20 Hct 31.9 % (41.0-60) L 06/28/17 05:20 MCV 91.7 fl (81-100) 06/28/17 05:20 MCH 31.3 pg (27.0-31.0) H 06/28/17 05:20 MCHC Differential 34.1 pg (28.0-36.0) 06/28/17 05:20 RDW 12.7 % (11.5-20.0) 06/28/17 05:20 Plt Count 276 Th/cmm (150-400) 06/28/17 05:20 MPV 6.9 fl 06/28/17 05:20 Neutrophils % 64.3 % (40.0-80.0) 06/28/17 05:20 Lymphocytes % 23.2 % (20.0-50.0) 06/28/17 05:20 Monocytes % 5.8 % (2.0-10.0) 06/28/17 05:20 Eosinophils % 5.9 % (0.0-5.0) H 06/28/17 05:20 Basophils % 0.8 % (0.0-2.0) 06/28/17 05:20 PT 9.7 SECONDS (9.5-11.5) 06/28/17 05:20 INR 0.93 (0.5-1.4) 06/28/17 05:20 PTT (Actin FS) 22.1 SECONDS (26.0-38.0) L 06/27/17 14:12 Sodium 135 mEq/L (136-145) L 06/28/17 05:20 Potassium 3.8 mEq/L (3.5-5.1) 06/28/17 05:20 Chloride 104 mEq/L (98-107) 06/28/17 05:20 Carbon Dioxide 25.7 mEq/L (21.0-31.0) 06/28/17 05:20 Anion Gap 9.1 (7.0-16.0) 06/28/17 05:20 BUN 18 mg/dL (7-25) 06/28/17 05:20 Creatinine 0.6 mg/dL (0.6-1.2) 06/28/17 05:20 Est GFR ( Amer) > 60.0 ml/min (>90) 06/28/17 05:20 Est GFR (Non-Af Amer) > 60.0 ml/min 06/28/17 05:20 BUN/Creatinine Ratio 30.0 06/28/17 05:20 Glucose 131 mg/dL (70-105) H 06/28/17 05:20 Hemoglobin A1c % 5.9 % (4.0-6.0) 06/26/17 13:45 Whole Bld Lactic Acid 1.22 mmol/L (0.60-1.99) 06/26/17 12:40 Calcium 9.1 mg/dL (8.6-10.3) 06/28/17 05:20 Total Bilirubin 0.4 mg/dL (0.3-1.0) 06/27/17 14:12 AST 21 U/L (13-39) 06/27/17 14:12 ALT 27 U/L (7-52) 06/27/17 14:12 Alkaline Phosphatase 361 U/L (34-104) H 06/27/17 14:12 Ammonia 93 umol/L (16-53) H 06/26/17 12:40 Troponin I < 0.01 ng/mL (0.01-0.05) L 06/26/17 12:40 Total Protein 6.0 gm/dL (6.0-8.3) 06/27/17 14:12 Albumin 3.3 gm/dL (3.7-5.3) L 06/27/17 14:12 Globulin 2.7 gm/dL 06/27/17 14:12 Albumin/Globulin Ratio 1.2 (1.0-1.8) 06/27/17 14:12 Vancomycin Trough 21.3 ug/mL (5-10) H 06/28/17 08:00 Ethyl Alcohol < 10 mg/dL (0-10) 06/26/17 12:40 Serum Ketones NEGATIVE (NEGATIVE) 06/26/17 12:40 - Physical Exam Vitals and I&O: Vital Signs Temp 98.4 F 06/28/17 08:00 Pulse 82 06/28/17 09:28 Resp 18 06/28/17 08:00 BP 127/64 06/28/17 09:28 Pulse Ox 96 06/28/17 08:00 Intake & Output 06/27/17 06/28/17 06/28/17 18:59 06:59 18:59 Intake Total 700 300 Balance 700 300 Weight (lbs) 68.804 kg Intake: Intake, IV Amount 300 300 Cefepime 1 gm In Sodium 50 50 Chloride 0.9% 50 ml @ 100 mls/hr IV Q12HR [facility] Rx#: [id number] Vancomycin HCl 1.25 gm In 250 250 Sodium Chloride 0.9% 250 ml @ 165 mls/hr IV Q12H [facility] Rx#:[id number] Oral 400 Other: # Voids 3 # Bowel Movements 1 Weight Source Bedscale Active Medications: Current Medications Acetaminophen (Tylenol Extra Strength) 500 mg PO Q4HR PRN PRN Reason: Mild Pain or Fever >101 Stop: 08/25/17 16:52 Last Admin: 06/27/17 11:33 Dose: 500 mg Acetaminophen/Hydrocodone Bitart ([place] 5mg/325mg) 1 tab PO Q6H PRN PRN Reason: Pain (Moderate) Stop: 08/25/17 16:52 Ascorbic Acid (Vitamin C) 500 mg PO DAILY [facility] Stop: 08/26/17 08:59 Last Admin: 06/28/17 09:26 Dose: Not Given Carvedilol (Coreg) 3.125 mg PO BID [facility] Stop: 08/25/17 16:59 Last Admin: 06/28/17 09:26 Dose: Not Given Enoxaparin Sodium (Lovenox) 40 mg SUBQ DAILY [facility] Stop: 08/26/17 08:59 Last Admin: 06/28/17 09:55 Dose: Not Given Glucagon (Glucagen) 1 mg IM PRN PRN PRN Reason: LOW BLOOD SUGAR Stop: 08/25/17 16:52 Cefepime HCl 1 gm/ Sodium (Chloride) 50 mls @ 100 mls/hr IV Q12HR [facility] Stop: 08/25/17 20:59 Last Admin: 06/28/17 10:15 Dose: 100 mls/hr Vancomycin HCl 1 gm/ Sodium (Chloride) 250 mls @ 165 mls/hr IV Q12HR@0900,2100 [facility] Stop: 08/27/17 09:59 Last Admin: 06/28/17 11:21 Dose: 165 mls/hr Insulin Detemir (Levemir Insulin) 15 units SUBQ DAILY [facility] PRN Reason: Protocol Stop: 08/26/17 08:59 Last Admin: 06/28/17 09:55 Dose: Not Given Lisinopril (Zestril) 5 mg PO DAILY [facility] Stop: 08/26/17 08:59 Last Admin: 06/28/17 09:28 Dose: Not Given Miscellaneous (Melatonin [Melatonin]) 3 mg PO HS [facility] Stop: 08/25/17 20:59 Miscellaneous (Vancomycin Iv Per Pharmacy) 1 ea MC PRN [facility] Stop: 08/25/17 16:59 Morphine Sulfate (Morphine) 2 mg IVP Q4HR PRN PRN Reason: Pain (Moderate) Stop: 08/25/17 16:50 Last Admin: 06/28/17 03:20 Dose: 2 mg Mupirocin (Bactroban Oint) 1 appl NS BID [facility] Stop: 07/03/17 09:01 Pantoprazole Sodium (Protonix) 40 mg PO QDAC [facility] Stop: 08/26/17 07:29 Last Admin: 06/28/17 08:22 Dose: Not Given Phenytoin (Dilantin) 200 mg PO QAM [facility] Stop: 08/26/17 08:59 Last Admin: 06/28/17 09:29 Dose: Not Given Phenytoin (Dilantin) 100 mg PO QPM [facility] Stop: 08/26/17 16:59 Last Admin: 06/27/17 17:40 Dose: 100 mg General: no acute distress, well developed, well nourished HEENT: atraumatic, normocephalic, PERRLA, EOMI Neck: supple, no thyromegaly Cardiovascular: S1S2, regular Lungs: no clear to auscultation bilaterally, no clear to percussion Abdomen: soft, no tender Extremities: other ( Right leg is externally rotated), no cyanosis, no clubbing Neurological: awake, alert, oriented Skin: intact - Procedures Procedures: Procedures Procedure Code Date GROUP PSYCHOTHERAPY 50534 01/01/15 GROUP PSYCHOTHERAPY GZHZZZZ 01/01/15 OTHER GROUP THERAPY 94.44 11/05/14 Infectious Disease Assmt/Plan - Assessment Assessment: 1. Swelling of the right knee likely reactive versus septic arthritis. periprosthetic fracture. 2. Fracture of distal right femur. 3. Diabetes mellitus type 2. 4. Hypertension. 5. Hyperlipidemia. 6. UTI. 7. TKR of right knee. - Plan Plan: Will continue same treatment.
--- NOTE | 2017-06-28 20:30 | General Progress Note ---
Subjective - Review of Systems Service Date: 06/28/17 Subjective: Patient seen and examined c/o right knee area pain Objective - Results Result Diagrams: 06/28/17 05:20 06/28/17 05:20 Recent Labs: Laboratory Last Values WBC 7.5 Th/cmm (4.8-10.8) 06/28/17 05:20 RBC 3.48 Mil/cmm (3.80-5.10) L 06/28/17 05:20 Hgb 10.9 gm/dL (12-16) L 06/28/17 05:20 Hct 31.9 % (41.0-60) L 06/28/17 05:20 MCV 91.7 fl (81-100) 06/28/17 05:20 MCH 31.3 pg (27.0-31.0) H 06/28/17 05:20 MCHC Differential 34.1 pg (28.0-36.0) 06/28/17 05:20 RDW 12.7 % (11.5-20.0) 06/28/17 05:20 Plt Count 276 Th/cmm (150-400) 06/28/17 05:20 MPV 6.9 fl 06/28/17 05:20 Neutrophils % 64.3 % (40.0-80.0) 06/28/17 05:20 Lymphocytes % 23.2 % (20.0-50.0) 06/28/17 05:20 Monocytes % 5.8 % (2.0-10.0) 06/28/17 05:20 Eosinophils % 5.9 % (0.0-5.0) H 06/28/17 05:20 Basophils % 0.8 % (0.0-2.0) 06/28/17 05:20 PT 9.7 SECONDS (9.5-11.5) 06/28/17 05:20 INR 0.93 (0.5-1.4) 06/28/17 05:20 PTT (Actin FS) 22.1 SECONDS (26.0-38.0) L 06/27/17 14:12 Sodium 135 mEq/L (136-145) L 06/28/17 05:20 Potassium 3.8 mEq/L (3.5-5.1) 06/28/17 05:20 Chloride 104 mEq/L (98-107) 05/07/18 05:20 Carbon Dioxide 25.7 mEq/L (21.0-31.0) 06/28/17 05:20 Anion Gap 9.1 (7.0-16.0) 06/28/17 05:20 BUN 18 mg/dL (7-25) 06/28/17 05:20 Creatinine 0.6 mg/dL (0.6-1.2) 06/28/17 05:20 Est GFR ( Amer) > 60.0 ml/min (>90) 06/28/17 05:20 Est GFR (Non-Af Amer) > 60.0 ml/min 06/28/17 05:20 BUN/Creatinine Ratio 30.0 06/28/17 05:20 Glucose 131 mg/dL (70-105) H 06/28/17 05:20 POC Glucose 132 MG/DL (70 - 105) H 06/28/17 20:04 Hemoglobin A1c % 5.9 % (4.0-6.0) 06/26/17 13:45 Whole Bld Lactic Acid 1.22 mmol/L (0.60-1.99) 06/26/17 12:40 Calcium 9.1 mg/dL (8.6-10.3) 06/28/17 05:20 Total Bilirubin 0.4 mg/dL (0.3-1.0) 06/27/17 14:12 AST 21 U/L (13-39) 06/27/17 14:12 ALT 27 U/L (7-52) 06/27/17 14:12 Alkaline Phosphatase 361 U/L (34-104) H 06/27/17 14:12 Ammonia 93 umol/L (16-53) H 06/26/17 12:40 Troponin I < 0.01 ng/mL (0.01-0.05) L 06/26/17 12:40 Total Protein 6.0 gm/dL (6.0-8.3) 06/27/17 14:12 Albumin 3.3 gm/dL (3.7-5.3) L 06/27/17 14:12 Globulin 2.7 gm/dL 06/27/17 14:12 Albumin/Globulin Ratio 1.2 (1.0-1.8) 06/27/17 14:12 Vancomycin Trough 21.3 ug/mL (5-10) H 06/28/17 08:00 Ethyl Alcohol < 10 mg/dL (0-10) 06/26/17 12:40 Serum Ketones NEGATIVE (NEGATIVE) 06/26/17 12:40 - Physical Exam Vitals and I&O: Vital Signs Temp 98.2 F 06/28/17 16:00 Pulse 91 06/28/17 17:53 Resp 18 06/28/17 16:00 BP 135/69 06/28/17 17:53 Pulse Ox 98 06/28/17 16:00 Intake & Output 06/28/17 06/28/17 06/29/17 06:59 18:59 06:59 Intake Total 300 300 Balance 300 300 Intake: Intake, IV Amount 300 300 Cefepime 1 gm In Sodium 50 50 Chloride 0.9% 50 ml @ 100 mls/hr IV Q12HR [facility] Rx#: [id number] Vancomycin HCl 1 gm In 250 Sodium Chloride 0.9% 250 ml @ 165 mls/hr IV Q12HR@ 0900,2100 [facility] Rx#: [id number] Vancomycin HCl 1.25 gm In 250 Sodium Chloride 0.9% 250 ml @ 165 mls/hr IV Q12H [facility] Rx#:[id number] Active Medications: Current Medications Acetaminophen (Tylenol Extra Strength) 500 mg PO Q4HR PRN PRN Reason: Mild Pain or Fever >101 Stop: 08/25/17 16:52 Last Admin: 06/27/17 11:33 Dose: 500 mg Acetaminophen/Hydrocodone Bitart ([place] 5mg/325mg) 1 tab PO Q6H PRN PRN Reason: Pain (Moderate) Stop: 08/25/17 16:52 Ascorbic Acid (Vitamin C) 500 mg PO DAILY [facility] Stop: 08/26/17 08:59 Last Admin: 06/28/17 09:26 Dose: Not Given Carvedilol (Coreg) 3.125 mg PO BID [facility] Stop: 08/25/17 16:59 Last Admin: 06/28/17 17:53 Dose: 3.125 mg Enoxaparin Sodium (Lovenox) 40 mg SUBQ DAILY [facility] Stop: 08/26/17 08:59 Last Admin: 06/28/17 09:55 Dose: Not Given Glucagon (Glucagen) 1 mg IM PRN PRN PRN Reason: LOW BLOOD SUGAR Stop: 08/25/17 16:52 Cefepime HCl 1 gm/ Sodium (Chloride) 50 mls @ 100 mls/hr IV Q12HR [facility] Stop: 08/25/17 20:59 Last Infusion: 06/28/17 19:17 Dose: Infused Vancomycin HCl 1 gm/ Sodium (Chloride) 250 mls @ 165 mls/hr IV Q12HR@0900,2100 [facility] Stop: 08/27/17 09:59 Last Infusion: 06/28/17 19:17 Dose: Infused Insulin Detemir (Levemir Insulin) 15 units SUBQ DAILY JOHN PRN Reason: Protocol Stop: 08/26/17 08:59 Last Admin: 06/28/17 09:55 Dose: Not Given Lisinopril (Zestril) 5 mg PO DAILY [facility] Stop: 08/26/17 08:59 Last Admin: 06/28/17 09:28 Dose: Not Given Miscellaneous (Melatonin [Melatonin]) 3 mg PO HS [facility] Stop: 08/25/17 20:59 Miscellaneous (Vancomycin Iv Per Pharmacy) 1 ea MC PRN [facility] Stop: 08/25/17 16:59 Morphine Sulfate (Morphine) 2 mg IVP Q4HR PRN PRN Reason: Pain (Moderate) Stop: 08/25/17 16:50 Last Admin: 06/28/17 16:33 Dose: 2 mg Mupirocin (Bactroban Oint) 1 appl NS BID [facility] Stop: 07/03/17 09:01 Last Admin: 06/28/17 17:48 Dose: 1 appl Pantoprazole Sodium (Protonix) 40 mg PO QDAC [facility] Stop: 08/26/17 07:29 Last Admin: 06/28/17 08:22 Dose: Not Given Phenytoin (Dilantin) 200 mg PO QAM [facility] Stop: 08/26/17 08:59 Last Admin: 06/28/17 09:29 Dose: Not Given Phenytoin (Dilantin) 100 mg PO QPM [facility] Stop: 08/26/17 16:59 Last Admin: 06/28/17 17:48 Dose: 100 mg Cardiovascular: Regular rate Lungs: Clear to auscultation Extremities: Other (Right knee immobilizer in place) - Procedures Procedures: Procedures Procedure Code Date GROUP PSYCHOTHERAPY 81618 01/01/15 GROUP PSYCHOTHERAPY GZHZZZZ 01/01/15 OTHER GROUP THERAPY 94.44 11/05/14 Assessment/Plan - Assessment Assessment: Right Femur fracture UTI DM II HTN - Plan Plan: ORIF per ortho Patient is medically stable for her surgery IV antibiotics Knee immobilizer DVT prophylaxis Plan of care discussed with nursing staff Nutritional Asmnt/Malnutr-PDOC - Dietary Evaluation Malnutrition Findings (Please click <Entered> for more info): Nutritional Asmnt/Malnutrition Start: 06/28/17 14: 16 Text: Status: Active Freq: Document 06/28/17 14:16 LCHENG (Rec: 06/28/17 14:32 [email or web address]) Nutritional Asmnt/Malnutrition Patient General Information Nutritional Screening High Risk Diagnosis right knee swelling Pertinent Medical Hx/Surgical Hx CVA, DM, HTN, [id number], DJD, hip and left knee fracture Subjective Information Pt was not available at time of visit. Pt is on NPO from midnight for possibel surgery today. Pt was on CCHO6-gm diet . Per EMR, PO intake 75-100%. Current Diet Order/ Nutrition Support NPO Pertinent Medications vit C, levemir, protonix, vancomycin Pertinent Labs 06/28 na 135, glucose 131 5/6 glucose 188 5/5 glucose 189, A1c 5.9 Nutritional Hx/Data Height 1.65 m Height (Calculated Centimeters) 165.1 Current Weight (lbs) 68.946 kg Weight (Calculated Kilograms) 68.9 Weight (Calculated Grams) [address]3242.0 [place] Body Weight 125 Body Mass Index (BMI) 25.2 Weight Status Overweight GI Symptoms GI Symptoms None Last BM 5/6 Difficult in: None Skin Integrity/Comment: right knee swollen Current %PO Good (75-100%) Estimated Nutritional Goals BEE in Kcals: Using Current wt Calories/Kcals/Kg 25-27 Kcals Calculated 6481-2556 Protein: Using Current wt Protein g/k Protein Calculated 69 Fluid: ml 1587-1863ml (1ml/kcal) Nutritional Problem 1. Problem Problem altered nutrition related labs Etiology hx of DM Signs/Symptoms: glucose 131-189, A1c 5.9 Malnutrition Alert Protein-Calorie Malnutrition N/A Is there a minimum of two criteria No selected? Query Text:Check all the applicable criteria. A minimum of two criteria are recommended for diagnosis of either severe or non-severe malnutrition. Intervention/Recommendation Comments 1. Resume CCHO-60gm diet as needed 2. Monitor PO intake, wt, labs and skin integrity 3. F/U as moderate risk in 3-5 days, 07/01-07/03 Expected Outcomes/Goals Expected Outcomes/Goals 1. PO intake to meet at least 75% of nutritional needs. 2. Wt stability, skin to remain intact, labs to approach WNL.
[2017-06-29] MEDS ORDERED: Morphine Sulfate 4 mg/mL 1mL Syr ONE (04:33)
[2017-06-29] MEDS: Morphine Sulfate 4 mg/mL 1mL Syr IVP PRN ×3 (04:42→21:10)
[2017-06-29 05:35] LABS: % BASOPHILS 0.5 % (0.0-2.0); % EOSINOPHILS 4.5 % (0.0-5.0); % LYMPHOCYTES 23.9 % (20.0-50.0); % MONOCYTES 6.5 % (2.0-10.0); % NEUTROPHILS 64.6 % (40.0-80.0); EOSINOPHILE ABSOLUTE 0.4 Th/cmm (0.1-0.4); HEMATOCRIT 34.2 % (41.0-60); HEMOGLOBIN 11.6 gm/dL (12-16); LYMPHOCYTE ABSOLUTE 1.9 Th/cmm (1.5-3.0); MEAN CELL VOLUME 91.4 fl (81-100); MEAN CORPUSCULAR HEMOGLOBIN 30.9 pg (27.0-31.0); MEAN CORPUSCULAR HGB CONC 33.8 pg (28.0-36.0); MEAN PLATELET VOLUME 7.5 fl; MONOCYTE ABSOLUTE 0.5 Th/cmm (0.3-1.0); NEUTROPHILE ABSOLUTE 5.2 Th/cmm (1.8-8.0); PLATELET COUNT 267 Th/cmm (150-400); RED BLOOD COUNT 3.74 Mil/cmm (3.80-5.10); RED CELL DISTRIBUTION WIDTH 12.9 % (11.5-20.0)
[2017-06-29 05:50] LABS: BUN - UREA NITROGEN 16 mg/dL (7-25); CALCIUM SERUM 9.4 mg/dL (8.6-10.3); CARBON DIOXIDE 25.8 mEq/L (21.0-31.0); CHLORIDE 102 mEq/L (98-107); CREATININE - SERUM 0.5 mg/dL (0.6-1.2); GFR AFRICAN-AMERICAN > 60.0 ml/min (>90); GFR NON AFRICAN-AMERICAN > 60.0 ml/min; GLUCOSE 111 mg/dL (70-105); POTASSIUM SERUM 3.8 mEq/L (3.5-5.1); SODIUM SERUM 135 mEq/L (136-145)
[2017-06-29] MEDS: Pantoprazole 40 mg EC Tab PO SCH (06:43)
[2017-06-29] MEDS: Cefepime 1 GM in Sodium Chloride 0.9% 50 ML IV SCH ×2 (10:37→21:39)
[2017-06-29] MEDS: Multivitamin w/ Minerals Tab PO SCH (10:38)
[2017-06-29] MEDS: Enoxaparin 40 mg/0.4 mL 0.4mL Syr SUBQ SCH ×2 (10:42→18:20)
[2017-06-29] MEDS: Insulin Detemir 100 units/mL 10mL Vial SUBQ SCH (10:49)
--- NOTE | 2017-06-29 12:44 | Infectious Disease Prog Note ---
Infectious Disease Subjective - Review of Systems Service Date: 06/29/17 Subjective: No fever, no chills. Infectious Disease Objective - Results Result Diagrams: 06/30/17 05:00 06/30/17 05:00 Recent Labs: Laboratory Last Values WBC 8.0 Th/cmm (4.8-10.8) 06/29/17 04:50 RBC 3.74 Mil/cmm (3.80-5.10) L 06/29/17 04:50 Hgb 11.6 gm/dL (12-16) L 06/29/17 04:50 Hct 34.2 % (41.0-60) L 06/29/17 04:50 MCV 91.4 fl (81-100) 06/29/17 04:50 MCH 30.9 pg (27.0-31.0) 06/29/17 04:50 MCHC Differential 33.8 pg (28.0-36.0) 06/29/17 04:50 RDW 12.9 % (11.5-20.0) 06/29/17 04:50 Plt Count 267 Th/cmm (150-400) 06/29/17 04:50 MPV 7.5 fl 06/29/17 04:50 Neutrophils % 64.6 % (40.0-80.0) 06/29/17 04:50 Lymphocytes % 23.9 % (20.0-50.0) 06/29/17 04:50 Monocytes % 6.5 % (2.0-10.0) 06/29/17 04:50 Eosinophils % 4.5 % (0.0-5.0) 06/29/17 04:50 Basophils % 0.5 % (0.0-2.0) 06/29/17 04:50 PT 9.7 SECONDS (9.5-11.5) 06/28/17 05:20 INR 0.93 (0.5-1.4) 06/28/17 05:20 PTT (Actin FS) 22.1 SECONDS (26.0-38.0) L 06/27/17 14:12 Sodium 135 mEq/L (136-145) L 06/29/17 04:50 Potassium 3.8 mEq/L (3.5-5.1) 06/29/17 04:50 Chloride 102 mEq/L (98-107) 06/29/17 04:50 Carbon Dioxide 25.8 mEq/L (21.0-31.0) 06/29/17 04:50 Anion Gap 11.0 (7.0-16.0) 06/29/17 04:50 BUN 16 mg/dL (7-25) 06/29/17 04:50 Creatinine 0.5 mg/dL (0.6-1.2) L 06/29/17 04:50 Est GFR ( Amer) > 60.0 ml/min (>90) 06/29/17 04:50 Est GFR (Non-Af Amer) > 60.0 ml/min 06/29/17 04:50 BUN/Creatinine Ratio 32.0 06/29/17 04:50 Glucose 111 mg/dL (70-105) H 06/29/17 04:50 POC Glucose 170 MG/DL (70 - 105) H 06/29/17 12:32 Hemoglobin A1c % 5.9 % (4.0-6.0) 06/26/17 13:45 Whole Bld Lactic Acid 1.22 mmol/L (0.60-1.99) 06/26/17 12:40 Calcium 9.4 mg/dL (8.6-10.3) 06/29/17 04:50 Total Bilirubin 0.4 mg/dL (0.3-1.0) 06/27/17 14:12 AST 21 U/L (13-39) 06/27/17 14:12 ALT 27 U/L (7-52) 06/27/17 14:12 Alkaline Phosphatase 361 U/L (34-104) H 06/27/17 14:12 Ammonia 93 umol/L (16-53) H 06/26/17 12:40 Troponin I < 0.01 ng/mL (0.01-0.05) L 06/26/17 12:40 Total Protein 6.0 gm/dL (6.0-8.3) 06/27/17 14:12 Albumin 3.3 gm/dL (3.7-5.3) L 06/27/17 14:12 Globulin 2.7 gm/dL 06/27/17 14:12 Albumin/Globulin Ratio 1.2 (1.0-1.8) 06/27/17 14:12 Vancomycin Trough 9.8 ug/mL (5-10) 06/29/17 09:15 Ethyl Alcohol < 10 mg/dL (0-10) 06/26/17 12:40 Serum Ketones NEGATIVE (NEGATIVE) 06/26/17 12:40 - Physical Exam Vitals and I&O: Vital Signs Temp 97.8 F 06/29/17 04:00 Pulse 81 06/29/17 10:40 Resp 18 06/29/17 04:00 BP 108/58 06/29/17 10:40 Pulse Ox 96 06/29/17 04:00 Intake & Output 06/28/17 06/29/17 06/29/17 18:59 06:59 18:59 Intake Total 450 Balance 450 Weight (lbs) 68.81 kg Intake: Intake, IV Amount 350 Cefepime 1 gm In Sodium 100 Chloride 0.9% 50 ml @ 100 mls/hr IV Q12HR [facility] Rx#: [id number] Vancomycin HCl 1 gm In 250 Sodium Chloride 0.9% 250 ml @ 165 mls/hr IV Q12HR@ 0900,2100 [facility] Rx#: [id number] Oral 100 Other: # Voids 1 # Bowel Movements 0 Weight Source Bedscale Active Medications: Current Medications Acetaminophen (Tylenol Extra Strength) 500 mg PO Q4HR PRN PRN Reason: Mild Pain or Fever >101 Stop: 08/25/17 16:52 Last Admin: 06/27/17 11:33 Dose: 500 mg Acetaminophen/Hydrocodone Bitart ([place] 5mg/325mg) 1 tab PO Q6H PRN PRN Reason: Pain (Moderate) Stop: 08/25/17 16:52 Ascorbic Acid (Vitamin C) 500 mg PO DAILY [facility] Stop: 08/26/17 08:59 Last Admin: 06/29/17 10:39 Dose: 500 mg Carvedilol (Coreg) 3.125 mg PO BID [facility] Stop: 08/25/17 16:59 Last Admin: 06/29/17 10:40 Dose: 3.125 mg Enoxaparin Sodium (Lovenox) 40 mg SUBQ DAILY [facility] Stop: 08/26/17 08:59 Last Admin: 06/29/17 10:42 Dose: 40 mg Glucagon (Glucagen) 1 mg IM PRN PRN PRN Reason: LOW BLOOD SUGAR Stop: 07/04/18 16:52 Cefepime HCl 1 gm/ Sodium (Chloride) 50 mls @ 100 mls/hr IV Q12HR [facility] Stop: 08/25/17 20:59 Last Admin: 06/29/17 10:37 Dose: 100 mls/hr Insulin Detemir (Levemir Insulin) 15 units SUBQ DAILY [facility] PRN Reason: Protocol Stop: 08/26/17 08:59 Last Admin: 06/29/17 10:49 Dose: 15 units Lisinopril (Zestril) 5 mg PO DAILY [facility] Stop: 08/26/17 08:59 Last Admin: 06/29/17 10:39 Dose: 5 mg Miscellaneous (Melatonin [Melatonin]) 3 mg PO HS [facility] Stop: 08/25/17 20:59 Morphine Sulfate (Morphine) 2 mg IVP Q4HR PRN PRN Reason: Pain (Moderate) Stop: 08/25/17 16:50 Last Admin: 06/29/17 11:07 Dose: 2 mg Mupirocin (Bactroban Oint) 1 appl NS BID [facility] Stop: 07/03/17 09:01 Last Admin: 06/29/17 11:12 Dose: 1 appl Pantoprazole Sodium (Protonix) 40 mg PO QDAC [facility] Stop: 08/26/17 07:29 Last Admin: 06/29/17 06:43 Dose: 40 mg Phenytoin (Dilantin) 200 mg PO QAM [facility] Stop: 08/26/17 08:59 Last Admin: 06/29/17 10:38 Dose: 200 mg Phenytoin (Dilantin) 100 mg PO QPM [facility] Stop: 08/26/17 16:59 Last Admin: 06/28/17 17:48 Dose: 100 mg General: no acute distress, well developed, well nourished HEENT: atraumatic, normocephalic, PERRLA, EOMI Neck: supple, no thyromegaly Cardiovascular: S1S2, regular Lungs: clear to auscultation bilaterally, clear to percussion Abdomen: soft, no tender, no distended, no mass Extremities: other, no cyanosis, no clubbing, no edema Neurological: awake, alert, oriented Skin: intact - Procedures Procedures: Procedures Procedure Code Date GROUP PSYCHOTHERAPY 23748 01/01/15 GROUP PSYCHOTHERAPY GZHZZZZ 01/01/15 OTHER GROUP THERAPY 94.44 11/05/14 Infectious Disease Assmt/Plan - Assessment Assessment: 1. Swelling of the right knee likely reactive versus septic arthritis. periprosthetic fracture. 2. Fracture of distal right femur. 3. Diabetes mellitus type 2. 4. Hypertension. 5. Hyperlipidemia. 6. UTI. 7. TKR of right knee. - Plan Plan: Will continue same treatment. Nutritional Asmnt/Malnutr-PDOC - Dietary Evaluation Malnutrition Findings (Please click <Entered> for more info): Nutritional Asmnt/Malnutrition Start: 06/28/17 14: 16 Text: Status: Active Freq: Document 06/28/17 14:16 HEN (Rec: 06/28/17 14:32 LCHEN [email or web address]) Nutritional Asmnt/Malnutrition Patient General Information Nutritional Screening High Risk Diagnosis right knee swelling Pertinent Medical Hx/Surgical Hx CVA, DM, HTN, [id number], DJD, hip and left knee fracture Subjective Information Pt was not available at time of visit. Pt is on NPO from midnight for possibel surgery today. Pt was on CCHO6-gm diet . Per EMR, PO intake 75-100%. Current Diet Order/ Nutrition Support NPO Pertinent Medications vit C, levemir, protonix, vancomycin Pertinent Labs 5/7 na 135, glucose 131 5/6 glucose 188 5/5 glucose 189, A1c 5.9 Nutritional Hx/Data Height 1.65 m Height (Calculated Centimeters) 165.1 Current Weight (lbs) 68.946 kg Weight (Calculated Kilograms) 68.9 Weight (Calculated Grams) 73023.0 [place] Body Weight 125 Body Mass Index (BMI) 25.2 Weight Status Overweight GI Symptoms GI Symptoms None Last BM 5/6 Difficult in: None Skin Integrity/Comment: right knee swollen Current %PO Good (75-100%) Estimated Nutritional Goals BEE in Kcals: Using Current wt Calories/Kcals/Kg 25-27 Kcals Calculated 7228-9740 Protein: Using Current wt Protein g/k Protein Calculated 69 Fluid: ml 1587-1863ml (1ml/kcal) Nutritional Problem 1. Problem Problem altered nutrition related labs Etiology hx of DM Signs/Symptoms: glucose 131-189, A1c 5.9 Malnutrition Alert Protein-Calorie Malnutrition N/A Is there a minimum of two criteria No selected? Query Text:Check all the applicable criteria. A minimum of two criteria are recommended for diagnosis of either severe or non-severe malnutrition. Intervention/Recommendation Comments 1. Resume CCHO-60gm diet as needed 2. Monitor PO intake, wt, labs and skin integrity 3. F/U as moderate risk in 3-5 days, 07/01-07/03 Expected Outcomes/Goals Expected Outcomes/Goals 1. PO intake to meet at least 75% of nutritional needs. 2. Wt stability, skin to remain intact, labs to approach WNL.
--- NOTE | 2017-06-29 16:25 | General Progress Note ---
Subjective - Review of Systems Service Date: 06/29/17 Subjective: Patient seen and examined afebrile Objective - Results Result Diagrams: 06/29/17 04:50 06/29/17 04:50 Recent Labs: Laboratory Last Values WBC 8.0 Th/cmm (4.8-10.8) 06/29/17 04:50 RBC 3.74 Mil/cmm (3.80-5.10) L 06/29/17 04:50 Hgb 11.6 gm/dL (12-16) L 06/29/17 04:50 Hct 34.2 % (41.0-60) L 06/29/17 04:50 MCV 91.4 fl (81-100) 06/29/17 04:50 MCH 30.9 pg (27.0-31.0) 06/29/17 04:50 MCHC Differential 33.8 pg (28.0-36.0) 06/29/17 04:50 RDW 12.9 % (11.5-20.0) 06/29/17 04:50 Plt Count 267 Th/cmm (150-400) 06/29/17 04:50 MPV 7.5 fl 06/29/17 04:50 Neutrophils % 64.6 % (40.0-80.0) 06/29/17 04:50 Lymphocytes % 23.9 % (20.0-50.0) 06/29/17 04:50 Monocytes % 6.5 % (2.0-10.0) 06/29/17 04:50 Eosinophils % 4.5 % (0.0-5.0) 06/29/17 04:50 Basophils % 0.5 % (0.0-2.0) 06/29/17 04:50 PT 9.7 SECONDS (9.5-11.5) 06/28/17 05:20 INR 0.93 (0.5-1.4) 06/28/17 05:20 PTT (Actin FS) 22.1 SECONDS (26.0-38.0) L 06/27/17 14:12 Sodium 135 mEq/L (136-145) L 06/29/17 04:50 Potassium 3.8 mEq/L (3.5-5.1) 06/29/17 04:50 Chloride 102 mEq/L (98-107) 06/29/17 04:50 Carbon Dioxide 25.8 mEq/L (21.0-31.0) 06/29/17 04:50 Anion Gap 11.0 (7.0-16.0) 06/29/17 04:50 BUN 16 mg/dL (7-25) 06/29/17 04:50 Creatinine 0.5 mg/dL (0.6-1.2) L 06/29/17 04:50 Est GFR ( Amer) > 60.0 ml/min (>90) 06/29/17 04:50 Est GFR (Non-Af Amer) > 60.0 ml/min 06/29/17 04:50 BUN/Creatinine Ratio 32.0 06/29/17 04:50 Glucose 111 mg/dL (70-105) H 06/29/17 04:50 POC Glucose 170 MG/DL (70 - 105) H 06/29/17 12:32 Hemoglobin A1c % 5.9 % (4.0-6.0) 06/26/17 13:45 Whole Bld Lactic Acid 1.22 mmol/L (0.60-1.99) 06/26/17 12:40 Calcium 9.4 mg/dL (8.6-10.3) 06/29/17 04:50 Total Bilirubin 0.4 mg/dL (0.3-1.0) 06/27/17 14:12 AST 21 U/L (13-39) 06/27/17 14:12 ALT 27 U/L (7-52) 06/27/17 14:12 Alkaline Phosphatase 361 U/L (34-104) H 06/27/17 14:12 Ammonia 93 umol/L (16-53) H 06/26/17 12:40 Troponin I < 0.01 ng/mL (0.01-0.05) L 06/26/17 12:40 Total Protein 6.0 gm/dL (6.0-8.3) 06/27/17 14:12 Albumin 3.3 gm/dL (3.7-5.3) L 06/27/17 14:12 Globulin 2.7 gm/dL 06/27/17 14:12 Albumin/Globulin Ratio 1.2 (1.0-1.8) 06/27/17 14:12 Vancomycin Trough 9.8 ug/mL (5-10) 06/29/17 09:15 Ethyl Alcohol < 10 mg/dL (0-10) 06/26/17 12:40 Serum Ketones NEGATIVE (NEGATIVE) 06/26/17 12:40 - Physical Exam Vitals and I&O: Vital Signs Temp 98.2 F 06/29/17 12:00 Pulse 74 06/29/17 12:00 Resp 18 06/29/17 12:00 BP 112/60 06/29/17 12:00 Pulse Ox 96 06/29/17 12:00 Intake & Output 06/28/17 06/29/17 06/29/17 18:59 06:59 18:59 Intake Total 450 Balance 450 Weight (lbs) 68.81 kg 68.492 kg Intake: Intake, IV Amount 350 Cefepime 1 gm In Sodium 100 Chloride 0.9% 50 ml @ 100 mls/hr IV Q12HR [facility] Rx#: [id number] Vancomycin HCl 1 gm In 250 Sodium Chloride 0.9% 250 ml @ 165 mls/hr IV Q12HR@ 0900,2100 [facility] Rx#: [id number] Oral 100 Other: # Voids 1 # Bowel Movements 0 Weight Source Bedscale Estimated Active Medications: Current Medications Acetaminophen (Tylenol Extra Strength) 500 mg PO Q4HR PRN PRN Reason: Mild Pain or Fever >101 Stop: 08/25/17 16:52 Last Admin: 06/27/17 11:33 Dose: 500 mg Acetaminophen/Hydrocodone Bitart ([place] 5mg/325mg) 1 tab PO Q6H PRN PRN Reason: Pain (Moderate) Stop: 08/25/17 16:52 Ascorbic Acid (Vitamin C) 500 mg PO DAILY [facility] Stop: 08/26/17 08:59 Last Admin: 06/29/17 10:39 Dose: 500 mg Carvedilol (Coreg) 3.125 mg PO BID [facility] Stop: 08/25/17 16:59 Last Admin: 06/29/17 10:40 Dose: 3.125 mg Enoxaparin Sodium (Lovenox) 40 mg SUBQ DAILY [facility] Stop: 08/26/17 08:59 Last Admin: 06/29/17 10:42 Dose: 40 mg Glucagon (Glucagen) 1 mg IM PRN PRN PRN Reason: LOW BLOOD SUGAR Stop: 08/25/17 16:52 Cefepime HCl 1 gm/ Sodium (Chloride) 50 mls @ 100 mls/hr IV Q12HR [facility] Stop: 08/25/17 20:59 Last Admin: 06/29/17 10:37 Dose: 100 mls/hr Insulin Detemir (Levemir Insulin) 15 units SUBQ DAILY [facility] PRN Reason: Protocol Stop: 08/26/17 08:59 Last Admin: 06/29/17 10:49 Dose: 15 units Lisinopril (Zestril) 5 mg PO DAILY [facility] Stop: 08/26/17 08:59 Last Admin: 06/29/17 10:39 Dose: 5 mg Miscellaneous (Melatonin [Melatonin]) 3 mg PO HS [facility] Stop: 08/25/17 20:59 Morphine Sulfate (Morphine) 2 mg IVP Q4HR PRN PRN Reason: Pain (Moderate) Stop: 08/25/17 16:50 Last Admin: 06/29/17 11:07 Dose: 2 mg Mupirocin (Bactroban Oint) 1 appl NS BID [facility] Stop: 07/03/17 09:01 Last Admin: 06/29/17 11:12 Dose: 1 appl Pantoprazole Sodium (Protonix) 40 mg PO QDAC [facility] Stop: 08/26/17 07:29 Last Admin: 06/29/17 06:43 Dose: 40 mg Phenytoin (Dilantin) 200 mg PO QAM [facility] Stop: 08/26/17 08:59 Last Admin: 06/29/17 10:38 Dose: 200 mg Phenytoin (Dilantin) 100 mg PO QPM [facility] Stop: 08/26/17 16:59 Last Admin: 06/28/17 17:48 Dose: 100 mg Cardiovascular: Regular rate Lungs: Clear to auscultation Extremities: Other (Right knee immobilizer in place) - Procedures Procedures: Procedures Procedure Code Date GROUP PSYCHOTHERAPY 38831 01/01/15 GROUP PSYCHOTHERAPY GZHZZZZ 01/01/15 OTHER GROUP THERAPY 94.44 11/05/14 Assessment/Plan - Assessment Assessment: Right Femur fracture UTI DM II HTN - Plan Plan: ORIF per ortho Patient is medically stable for her surgery IV antibiotics Knee immobilizer DVT prophylaxis Plan of care discussed with nursing staff Nutritional Asmnt/Malnutr-PDOC - Dietary Evaluation Malnutrition Findings (Please click <Entered> for more info): Nutritional Asmnt/Malnutrition Start: 06/28/17 14: 16 Text: Status: Active Freq: Document 06/28/17 14:16 VINNIE (Rec: 06/28/17 14:32 VINNIE [email or web address]) Nutritional Asmnt/Malnutrition Patient General Information Nutritional Screening High Risk Diagnosis right knee swelling Pertinent Medical Hx/Surgical Hx CVA, DM, HTN, [id number], DJD, hip and left knee fracture Subjective Information Pt was not available at time of visit. Pt is on NPO from midnight for possibel surgery today. Pt was on CCHO6-gm diet . Per EMR, PO intake 75-100%. Current Diet Order/ Nutrition Support NPO Pertinent Medications vit C, levemir, protonix, vancomycin Pertinent Labs 06/28 na 135, glucose 131 5/6 glucose 188 5/5 glucose 189, A1c 5.9 Nutritional Hx/Data Height 1.65 m Height (Calculated Centimeters) 165.1 Current Weight (lbs) 68.946 kg Weight (Calculated Kilograms) 68.9 Weight (Calculated Grams) 18757.0 [place] Body Weight 125 Body Mass Index (BMI) 25.2 Weight Status Overweight GI Symptoms GI Symptoms None Last BM 5/6 Difficult in: None Skin Integrity/Comment: right knee swollen Current %PO Good (75-100%) Estimated Nutritional Goals BEE in Kcals: Using Current wt Calories/Kcals/Kg 25-27 Kcals Calculated 0426-2838 Protein: Using Current wt Protein g/k Protein Calculated 69 Fluid: ml 1587-1863ml (1ml/kcal) Nutritional Problem 1. Problem Problem altered nutrition related labs Etiology hx of DM Signs/Symptoms: glucose 131-189, A1c 5.9 Malnutrition Alert Protein-Calorie Malnutrition N/A Is there a minimum of two criteria No selected? Query Text:Check all the applicable criteria. A minimum of two criteria are recommended for diagnosis of either severe or non-severe malnutrition. Intervention/Recommendation Comments 1. Resume CCHO-60gm diet as needed 2. Monitor PO intake, wt, labs and skin integrity 3. F/U as moderate risk in 3-5 days, 07/01-07/03 Expected Outcomes/Goals Expected Outcomes/Goals 1. PO intake to meet at least 75% of nutritional needs. 2. Wt stability, skin to remain intact, labs to approach WNL.
[2017-06-30] MEDS: D5-0.45NS 1,000 ML IV SCH ×2 (00:12→17:12)
[2017-06-30] MEDS: Morphine Sulfate 4 mg/mL 1mL Syr IVP PRN ×2 (01:04→21:38)
[2017-06-30 05:35] LABS: % BASOPHILS 3.5 % (0.0-2.0); % LYMPHOCYTES 24.2 % (20.0-50.0); % MONOCYTES 6.1 % (2.0-10.0); % NEUTROPHILS 61.2 % (40.0-80.0); BASOPHILE ABSOLUTE 0.3 Th/cumm (0-0.2); EOSINOPHILE ABSOLUTE 0.4 Th/cmm (0.1-0.4); HEMATOCRIT 34.1 % (41.0-60); HEMOGLOBIN 11.6 gm/dL (12-16); MEAN CELL VOLUME 90.3 fl (81-100); MEAN CORPUSCULAR HEMOGLOBIN 30.6 pg (27.0-31.0); MEAN CORPUSCULAR HGB CONC 33.9 pg (28.0-36.0); MEAN PLATELET VOLUME 7.6 fl; MONOCYTE ABSOLUTE 0.5 Th/cmm (0.3-1.0); PLATELET COUNT 259 Th/cmm (150-400); RED BLOOD COUNT 3.78 Mil/cmm (3.80-5.10); RED CELL DISTRIBUTION WIDTH 12.6 % (11.5-20.0); WHITE BLOOD COUNT 8.2 Th/cmm (4.8-10.8)
[2017-06-30 05:46] LABS: ANION GAP 9.7 (7.0-16.0); BUN - UREA NITROGEN 22 mg/dL (7-25); CALCIUM SERUM 9.2 mg/dL (8.6-10.3); CHLORIDE 102 mEq/L (98-107); CREATININE - SERUM 0.6 mg/dL (0.6-1.2); GFR AFRICAN-AMERICAN > 60.0 ml/min (>90); GFR NON AFRICAN-AMERICAN > 60.0 ml/min; GLUCOSE 150 mg/dL (70-105); POTASSIUM SERUM 3.7 mEq/L (3.5-5.1); SODIUM SERUM 135 mEq/L (136-145)
--- NOTE | 2017-06-30 08:04 | Diagnostic Imaging Report ---
CHEST X-RAY: AP view INDICATION: PICC line placement COMPARISON: 06/26/2017 FINDINGS: Right PICC line is seen with tip in the SVC. Increased interstitial lung markings are noted with no focal consolidation or pleural effusions. Heart size is normal. IMPRESSION: Interval right PICC line placement with tip in the SVC. Increased interstitial lung markings. No focal consolidation identified.
[2017-06-30] MEDS: Pantoprazole 40 mg EC Tab PO SCH (08:33)
[2017-06-30] MEDS: Multivitamin w/ Minerals Tab PO SCH (08:35)
[2017-06-30] MEDS: Enoxaparin 40 mg/0.4 mL 0.4mL Syr SUBQ SCH (10:23)
[2017-06-30] MEDS: Cefepime 1 GM in Sodium Chloride 0.9% 50 ML IV SCH ×2 (10:28→21:06)
[2017-06-30] MEDS: Insulin Detemir 100 units/mL 10mL Vial SUBQ SCH (10:45)
--- NOTE | 2017-06-30 11:17 | Infectious Disease Prog Note ---
Infectious Disease Subjective - Review of Systems Service Date: 06/30/17 Subjective: No fever, no chills. Infectious Disease Objective - Results Result Diagrams: 06/30/17 05:00 06/30/17 05:00 Recent Labs: Laboratory Last Values WBC 8.2 Th/cmm (4.8-10.8) 06/30/17 05:00 RBC 3.78 Mil/cmm (3.80-5.10) L 06/30/17 05:00 Hgb 11.6 gm/dL (12-16) L 06/30/17 05:00 Hct 34.1 % (41.0-60) L 06/30/17 05:00 MCV 90.3 fl (81-100) 06/30/17 05:00 MCH 30.6 pg (27.0-31.0) 06/30/17 05:00 MCHC Differential 33.9 pg (28.0-36.0) 06/30/17 05:00 RDW 12.6 % (11.5-20.0) 06/30/17 05:00 Plt Count 259 Th/cmm (150-400) 06/30/17 05:00 MPV 7.6 fl 06/30/17 05:00 Neutrophils % 61.2 % (40.0-80.0) 06/30/17 05:00 Lymphocytes % 24.2 % (20.0-50.0) 06/30/17 05:00 Monocytes % 6.1 % (2.0-10.0) 06/30/17 05:00 Eosinophils % 5.0 % (0.0-5.0) 06/30/17 05:00 Basophils % 3.5 % (0.0-2.0) H 06/30/17 05:00 PT 9.7 SECONDS (9.5-11.5) 06/28/17 05:20 INR 0.93 (0.5-1.4) 06/28/17 05:20 PTT (Actin FS) 22.1 SECONDS (26.0-38.0) L 06/27/17 14:12 Sodium 135 mEq/L (136-145) L 06/30/17 05:00 Potassium 3.7 mEq/L (3.5-5.1) 06/30/17 05:00 Chloride 102 mEq/L (98-107) 06/30/17 05:00 Carbon Dioxide 27.0 mEq/L (21.0-31.0) 06/30/17 05:00 Anion Gap 9.7 (7.0-16.0) 06/30/17 05:00 BUN 22 mg/dL (7-25) 06/30/17 05:00 Creatinine 0.6 mg/dL (0.6-1.2) 06/30/17 05:00 Est GFR ( Amer) > 60.0 ml/min (>90) 06/30/17 05:00 Est GFR (Non-Af Amer) > 60.0 ml/min 06/30/17 05:00 BUN/Creatinine Ratio 36.7 06/30/17 05:00 Glucose 150 mg/dL (70-105) H 06/30/17 05:00 POC Glucose 231 MG/DL (70 - 105) H 06/30/17 10:32 Hemoglobin A1c % 5.9 % (4.0-6.0) 06/26/17 13:45 Whole Bld Lactic Acid 1.22 mmol/L (0.60-1.99) 06/26/17 12:40 Calcium 9.2 mg/dL (8.6-10.3) 06/30/17 05:00 Total Bilirubin 0.4 mg/dL (0.3-1.0) 06/27/17 14:12 AST 21 U/L (13-39) 06/27/17 14:12 ALT 27 U/L (7-52) 06/27/17 14:12 Alkaline Phosphatase 361 U/L (34-104) H 06/27/17 14:12 Ammonia 93 umol/L (16-53) H 06/26/17 12:40 Troponin I < 0.01 ng/mL (0.01-0.05) L 06/26/17 12:40 Total Protein 6.0 gm/dL (6.0-8.3) 06/27/17 14:12 Albumin 3.3 gm/dL (3.7-5.3) L 06/27/17 14:12 Globulin 2.7 gm/dL 06/27/17 14:12 Albumin/Globulin Ratio 1.2 (1.0-1.8) 06/27/17 14:12 Vancomycin Trough 9.8 ug/mL (5-10) 06/29/17 09:15 Ethyl Alcohol < 10 mg/dL (0-10) 06/26/17 12:40 Serum Ketones NEGATIVE (NEGATIVE) 06/26/17 12:40 Blood Type O POSITIVE 06/30/17 08:30 Antibody Screen NEGATIVE 06/30/17 08:30 Crossmatch See Detail 06/30/17 08:30 - Physical Exam Vitals and I&O: Vital Signs Temp 97.4 F 06/30/17 04:00 Pulse 81 06/30/17 04:00 Resp 19 06/30/17 04:00 BP 121/59 06/30/17 04:00 Pulse Ox 97 06/30/17 04:00 Intake & Output 06/29/17 06/30/17 06/30/17 18:59 06:59 18:59 Intake Total 50 50 Balance 50 50 Weight (lbs) 68.492 kg 68.492 kg Intake: Intake, IV Amount 50 50 Cefepime 1 gm In Sodium 50 50 Chloride 0.9% 50 ml @ 100 mls/hr IV Q12HR [facility] Rx#: [id number] Other: # Voids 3 Weight Source Estimated Bedscale Active Medications: Current Medications Acetaminophen (Tylenol Extra Strength) 500 mg PO Q4HR PRN PRN Reason: Mild Pain or Fever >101 Stop: 08/25/17 16:52 Last Admin: 06/27/17 11:33 Dose: 500 mg Acetaminophen/Hydrocodone Bitart ([place] 5mg/325mg) 1 tab PO Q6H PRN PRN Reason: Pain (Moderate) Stop: 08/25/17 16:52 Ascorbic Acid (Vitamin C) 500 mg PO DAILY [facility] Stop: 08/26/17 08:59 Last Admin: 06/30/17 08:34 Dose: Not Given Carvedilol (Coreg) 3.125 mg PO BID [facility] Stop: 08/25/17 16:59 Last Admin: 06/30/17 08:34 Dose: Not Given Enoxaparin Sodium (Lovenox) 40 mg SUBQ DAILY [facility] Stop: 08/26/17 08:59 Last Admin: 06/30/17 10:23 Dose: Not Given Glucagon (Glucagen) 1 mg IM PRN PRN PRN Reason: LOW BLOOD SUGAR Stop: 07/04/18 16:52 Cefepime HCl 1 gm/ Sodium (Chloride) 50 mls @ 100 mls/hr IV Q12HR [facility] Stop: 08/25/17 20:59 Last Admin: 06/30/17 10:28 Dose: 100 mls/hr Dextrose/Sodium Chloride (D5-0.45ns) 1,000 mls @ 70 mls/hr IV .[id number] [facility] Stop: 08/28/17 23:44 Last Admin: 06/30/17 00:12 Dose: 70 mls/hr Insulin Detemir (Levemir Insulin) 15 units SUBQ DAILY [facility] PRN Reason: Protocol Stop: 08/26/17 08:59 Last Admin: 06/30/17 10:45 Dose: Not Given Lisinopril (Zestril) 5 mg PO DAILY [facility] Stop: 08/26/17 08:59 Last Admin: 06/30/17 08:34 Dose: Not Given Miscellaneous (Melatonin [Melatonin]) 3 mg PO HS [facility] Stop: 08/25/17 20:59 Morphine Sulfate (Morphine) 2 mg IVP Q4HR PRN PRN Reason: Pain (Moderate) Stop: 08/25/17 16:50 Last Admin: 06/30/17 01:04 Dose: 2 mg Mupirocin (Bactroban Oint) 1 appl NS BID [facility] Stop: 07/03/17 09:01 Last Admin: 06/30/17 10:28 Dose: 1 appl Pantoprazole Sodium (Protonix) 40 mg PO QDAC [facility] Stop: 08/26/17 07:29 Last Admin: 06/30/17 08:33 Dose: Not Given Phenytoin (Dilantin) 200 mg PO QAM [facility] Stop: 08/26/17 08:59 Last Admin: 06/30/17 08:35 Dose: Not Given Phenytoin (Dilantin) 100 mg PO QPM [facility] Stop: 08/26/17 16:59 Last Admin: 06/29/17 16:48 Dose: 100 mg General: no acute distress, well developed, well nourished HEENT: atraumatic, normocephalic, PERRLA, EOMI Neck: supple, no thyromegaly Cardiovascular: S1S2, regular Lungs: clear to auscultation bilaterally, clear to percussion Abdomen: soft, no tender, no distended, no mass Extremities: no cyanosis, no clubbing, no edema Neurological: awake, alert, oriented Skin: intact - Procedures Procedures: Procedures Procedure Code Date GROUP PSYCHOTHERAPY 89062 01/01/15 GROUP PSYCHOTHERAPY GZHZZZZ 01/01/15 OTHER GROUP THERAPY 94.44 11/05/14 Infectious Disease Assmt/Plan - Assessment Assessment: 1. Swelling of the right knee likely reactive versus septic arthritis. periprosthetic fracture. 2. Fracture of distal right femur. 3. Diabetes mellitus type 2. 4. Hypertension. 5. Hyperlipidemia. 6. UTI. 7. TKR of right knee. - Plan Plan: Will continue same treatment. Surgery planned today. Nutritional Asmnt/Malnutr-PDOC - Dietary Evaluation Malnutrition Findings (Please click <Entered> for more info): Nutritional Asmnt/Malnutrition Start: 06/28/17 14: 16 Text: Status: Active Freq: Document 06/28/17 14:16 [facility] (Rec: 06/28/17 14:32 [email or web address] Nutritional Asmnt/Malnutrition Patient General Information Nutritional Screening High Risk Diagnosis right knee swelling Pertinent Medical Hx/Surgical Hx CVA, DM, HTN, [id number], DJD, hip and left knee fracture Subjective Information Pt was not available at time of visit. Pt is on NPO from midnight for possibel surgery today. Pt was on CCHO6-gm diet . Per EMR, PO intake 75-100%. Current Diet Order/ Nutrition Support NPO Pertinent Medications vit C, levemir, protonix, vancomycin Pertinent Labs 5/7 na 135, glucose 131 5/6 glucose 188 5/5 glucose 189, A1c 5.9 Nutritional Hx/Data Height 1.65 m Height (Calculated Centimeters) 165.1 Current Weight (lbs) 68.946 kg Weight (Calculated Kilograms) 68.9 Weight (Calculated Grams) 31118.0 [place] Body Weight 125 Body Mass Index (BMI) 25.2 Weight Status Overweight GI Symptoms GI Symptoms None Last BM 5/6 Difficult in: None Skin Integrity/Comment: right knee swollen Current %PO Good (75-100%) Estimated Nutritional Goals BEE in Kcals: Using Current wt Calories/Kcals/Kg 25-27 Kcals Calculated 8639-8612 Protein: Using Current wt Protein g/k Protein Calculated 69 Fluid: ml 1587-1863ml (1ml/kcal) Nutritional Problem 1. Problem Problem altered nutrition related labs Etiology hx of DM Signs/Symptoms: glucose 131-189, A1c 5.9 Malnutrition Alert Protein-Calorie Malnutrition N/A Is there a minimum of two criteria No selected? Query Text:Check all the applicable criteria. A minimum of two criteria are recommended for diagnosis of either severe or non-severe malnutrition. Intervention/Recommendation Comments 1. Resume CCHO-60gm diet as needed 2. Monitor PO intake, wt, labs and skin integrity 3. F/U as moderate risk in 3-5 days, 07/01-07/03 Expected Outcomes/Goals Expected Outcomes/Goals 1. PO intake to meet at least 75% of nutritional needs. 2. Wt stability, skin to remain intact, labs to approach WNL.
[2017-06-30] MEDS ORDERED: HYDROmorphone 1 mg/mL 1mL Syr IVP PRN (13:20)
--- NOTE | 2017-06-30 13:28 | General Progress Note ---
Subjective - Review of Systems Service Date: 06/30/17 Subjective: Patient seen and examined afebrile Objective - Results Result Diagrams: 06/30/17 05:00 06/30/17 05:00 Recent Labs: Laboratory Last Values WBC 8.2 Th/cmm (4.8-10.8) 06/30/17 05:00 RBC 3.78 Mil/cmm (3.80-5.10) L 06/30/17 05:00 Hgb 11.6 gm/dL (12-16) L 06/30/17 05:00 Hct 34.1 % (41.0-60) L 06/30/17 05:00 MCV 90.3 fl (81-100) 06/30/17 05:00 MCH 30.6 pg (27.0-31.0) 06/30/17 05:00 MCHC Differential 33.9 pg (28.0-36.0) 06/30/17 05:00 RDW 12.6 % (11.5-20.0) 06/30/17 05:00 Plt Count 259 Th/cmm (150-400) 06/30/17 05:00 MPV 7.6 fl 06/30/17 05:00 Neutrophils % 61.2 % (40.0-80.0) 06/30/17 05:00 Lymphocytes % 24.2 % (20.0-50.0) 06/30/17 05:00 Monocytes % 6.1 % (2.0-10.0) 06/30/17 05:00 Eosinophils % 5.0 % (0.0-5.0) 06/30/17 05:00 Basophils % 3.5 % (0.0-2.0) H 06/30/17 05:00 PT 9.7 SECONDS (9.5-11.5) 06/28/17 05:20 INR 0.93 (0.5-1.4) 06/28/17 05:20 PTT (Actin FS) 22.1 SECONDS (26.0-38.0) L 06/27/17 14:12 Sodium 135 mEq/L (136-145) L 06/30/17 05:00 Potassium 3.7 mEq/L (3.5-5.1) 06/30/17 05:00 Chloride 102 mEq/L (98-107) 06/30/17 05:00 Carbon Dioxide 27.0 mEq/L (21.0-31.0) 06/30/17 05:00 Anion Gap 9.7 (7.0-16.0) 06/30/17 05:00 BUN 22 mg/dL (7-25) 06/30/17 05:00 Creatinine 0.6 mg/dL (0.6-1.2) 06/30/17 05:00 Est GFR ( Amer) > 60.0 ml/min (>90) 06/30/17 05:00 Est GFR (Non-Af Amer) > 60.0 ml/min 06/30/17 05:00 BUN/Creatinine Ratio 36.7 06/30/17 05:00 Glucose 150 mg/dL (70-105) H 06/30/17 05:00 POC Glucose 187 MG/DL (70 - 105) H 06/30/17 11:47 Hemoglobin A1c % 5.9 % (4.0-6.0) 06/26/17 13:45 Whole Bld Lactic Acid 1.22 mmol/L (0.60-1.99) 06/26/17 12:40 Calcium 9.2 mg/dL (8.6-10.3) 06/30/17 05:00 Total Bilirubin 0.4 mg/dL (0.3-1.0) 06/27/17 14:12 AST 21 U/L (13-39) 06/27/17 14:12 ALT 27 U/L (7-52) 06/27/17 14:12 Alkaline Phosphatase 361 U/L (34-104) H 06/27/17 14:12 Ammonia 93 umol/L (16-53) H 06/26/17 12:40 Troponin I < 0.01 ng/mL (0.01-0.05) L 06/26/17 12:40 Total Protein 6.0 gm/dL (6.0-8.3) 06/27/17 14:12 Albumin 3.3 gm/dL (3.7-5.3) L 06/27/17 14:12 Globulin 2.7 gm/dL 06/27/17 14:12 Albumin/Globulin Ratio 1.2 (1.0-1.8) 06/27/17 14:12 Vancomycin Trough 9.8 ug/mL (5-10) 06/29/17 09:15 Ethyl Alcohol < 10 mg/dL (0-10) 06/26/17 12:40 Serum Ketones NEGATIVE (NEGATIVE) 06/26/17 12:40 Blood Type O POSITIVE 06/30/17 08:30 Antibody Screen NEGATIVE 06/30/17 08:30 Crossmatch See Detail 06/30/17 08:30 - Physical Exam Vitals and I&O: Vital Signs Temp 98.6 F 06/30/17 08:00 Pulse 90 06/30/17 08:00 Resp 18 06/30/17 08:00 BP 139/75 06/30/17 08:00 Pulse Ox 97 06/30/17 08:00 Intake & Output 06/29/17 06/30/17 06/30/17 18:59 06:59 18:59 Intake Total 50 50 Balance 50 50 Weight (lbs) 68.492 kg 68.492 kg Intake: Intake, IV Amount 50 50 Cefepime 1 gm In Sodium 50 50 Chloride 0.9% 50 ml @ 100 mls/hr IV Q12HR [facility] Rx#: [id number] Other: # Voids 3 Weight Source Estimated Bedscale Active Medications: Current Medications Acetaminophen (Tylenol Extra Strength) 500 mg PO Q4HR PRN PRN Reason: Mild Pain or Fever >101 Stop: 08/25/17 16:52 Last Admin: 06/27/17 11:33 Dose: 500 mg Acetaminophen/Hydrocodone Bitart ([place] 5mg/325mg) 1 tab PO Q6H PRN PRN Reason: Pain (Moderate) Stop: 08/25/17 16:52 Ascorbic Acid (Vitamin C) 500 mg PO DAILY [facility] Stop: 08/26/17 08:59 Last Admin: 06/30/17 08:34 Dose: Not Given Carvedilol (Coreg) 3.125 mg PO BID [facility] Stop: 08/25/17 16:59 Last Admin: 06/30/17 08:34 Dose: Not Given Enoxaparin Sodium (Lovenox) 40 mg SUBQ DAILY [facility] Stop: 08/26/17 08:59 Last Admin: 06/30/17 10:23 Dose: Not Given Glucagon (Glucagen) 1 mg IM PRN PRN PRN Reason: LOW BLOOD SUGAR Stop: 08/25/17 16:52 Hydromorphone HCl (Dilaudid) 1 mg IVP Q4HR PRN PRN Reason: Pain (Moderate) Stop: 07/01/17 13:19 Cefepime HCl 1 gm/ Sodium (Chloride) 50 mls @ 100 mls/hr IV Q12HR [facility] Stop: 08/25/17 20:59 Last Admin: 06/30/17 10:28 Dose: 100 mls/hr Dextrose/Sodium Chloride (D5-0.45ns) 1,000 mls @ 70 mls/hr IV .[id number] [facility] Stop: 08/28/17 23:44 Last Admin: 06/30/17 00:12 Dose: 70 mls/hr Insulin Detemir (Levemir Insulin) 15 units SUBQ DAILY [facility] PRN Reason: Protocol Stop: 08/26/17 08:59 Last Admin: 06/30/17 10:45 Dose: Not Given Lisinopril (Zestril) 5 mg PO DAILY [facility] Stop: 08/26/17 08:59 Last Admin: 06/30/17 08:34 Dose: Not Given Miscellaneous (Melatonin [Melatonin]) 3 mg PO HS [facility] Stop: 08/25/17 20:59 Morphine Sulfate (Morphine) 2 mg IVP Q4HR PRN PRN Reason: Pain (Moderate) Stop: 08/25/17 16:50 Last Admin: 06/30/17 01:04 Dose: 2 mg Mupirocin (Bactroban Oint) 1 appl NS BID [facility] Stop: 07/03/17 09:01 Last Admin: 06/30/17 10:28 Dose: 1 appl Pantoprazole Sodium (Protonix) 40 mg PO QDAC [facility] Stop: 08/26/17 07:29 Last Admin: 06/30/17 08:33 Dose: Not Given Phenytoin (Dilantin) 200 mg PO QAM [facility] Stop: 08/26/17 08:59 Last Admin: 06/30/17 08:35 Dose: Not Given Phenytoin (Dilantin) 100 mg PO QPM [facility] Stop: 08/26/17 16:59 Last Admin: 06/29/17 16:48 Dose: 100 mg Cardiovascular: Regular rate Lungs: Clear to auscultation Extremities: Other (Right knee immobilizer in place) - Procedures Procedures: Procedures Procedure Code Date GROUP PSYCHOTHERAPY 64844 01/01/15 GROUP PSYCHOTHERAPY [id number] 01/01/15 OTHER GROUP THERAPY 94.44 11/05/14 Assessment/Plan - Assessment Assessment: Right Femur fracture UTI DM II HTN - Plan Plan: ORIF per ortho Patient is medically stable for her surgery IV antibiotics Knee immobilizer DVT prophylaxis Plan of care discussed with nursing staff Nutritional Asmnt/Malnutr-PDOC - Dietary Evaluation Malnutrition Findings (Please click <Entered> for more info): Nutritional Asmnt/Malnutrition Start: 06/28/17 14: 16 Text: Status: Active Freq: Document 06/28/17 14:16 LCHENG (Rec: 06/28/17 14:32 [email or web address] [email or web address]) Nutritional Asmnt/Malnutrition Patient General Information Nutritional Screening High Risk Diagnosis right knee swelling Pertinent Medical Hx/Surgical Hx CVA, DM, HTN, [id number], DJD, hip and left knee fracture Subjective Information Pt was not available at time of visit. Pt is on NPO from midnight for possibel surgery today. Pt was on CCHO6-gm diet . Per EMR, PO intake 75-100%. Current Diet Order/ Nutrition Support NPO Pertinent Medications vit C, levemir, protonix, vancomycin Pertinent Labs 5/7 na 135, glucose 131 5/6 glucose 188 5/5 glucose 189, A1c 5.9 Nutritional Hx/Data Height 1.65 m Height (Calculated Centimeters) 165.1 Current Weight (lbs) 68.946 kg Weight (Calculated Kilograms) 68.9 Weight (Calculated Grams) 22339.0 [place] Body Weight 125 Body Mass Index (BMI) 25.2 Weight Status Overweight GI Symptoms GI Symptoms None Last BM 5/6 Difficult in: None Skin Integrity/Comment: right knee swollen Current %PO Good (75-100%) Estimated Nutritional Goals BEE in Kcals: Using Current wt Calories/Kcals/Kg 25-27 Kcals Calculated 4177-0044 Protein: Using Current wt Protein g/k Protein Calculated 69 Fluid: ml 1587-1863ml (1ml/kcal) Nutritional Problem 1. Problem Problem altered nutrition related labs Etiology hx of DM Signs/Symptoms: glucose 131-189, A1c 5.9 Malnutrition Alert Protein-Calorie Malnutrition N/A Is there a minimum of two criteria No selected? Query Text:Check all the applicable criteria. A minimum of two criteria are recommended for diagnosis of either severe or non-severe malnutrition. Intervention/Recommendation Comments 1. Resume CCHO-60gm diet as needed 2. Monitor PO intake, wt, labs and skin integrity 3. F/U as moderate risk in 3-5 days, 07/01-07/03 Expected Outcomes/Goals Expected Outcomes/Goals 1. PO intake to meet at least 75% of nutritional needs. 2. Wt stability, skin to remain intact, labs to approach WNL.
[2017-07-01] MEDS ORDERED: Levetiracetam 500 mg/5mL 5mL Vial IV ONE (00:37)
[2017-07-01] MEDS: Metoprolol tartrate 1 mg/ml 5mL Amp IV PRN (02:07)
[2017-07-01] MEDS: Morphine Sulfate 4 mg/mL 1mL Syr IVP PRN ×3 (02:17→17:20)
[2017-07-01 04:40] LABS: % BASOPHILS 0.4 % (0.0-2.0); % LYMPHOCYTES 15.7 % (20.0-50.0); % MONOCYTES 5.8 % (2.0-10.0); % NEUTROPHILS 77.1 % (40.0-80.0); EOSINOPHILE ABSOLUTE 0.1 Th/cmm (0.1-0.4); HEMATOCRIT 35.3 % (41.0-60); HEMOGLOBIN 11.8 gm/dL (12-16); LYMPHOCYTE ABSOLUTE 1.4 Th/cmm (1.5-3.0); MEAN CELL VOLUME 91.1 fl (81-100); MEAN CORPUSCULAR HEMOGLOBIN 30.4 pg (27.0-31.0); MEAN CORPUSCULAR HGB CONC 33.4 pg (28.0-36.0); MEAN PLATELET VOLUME 7.6 fl; MONOCYTE ABSOLUTE 0.5 Th/cmm (0.3-1.0); NEUTROPHILE ABSOLUTE 7.1 Th/cmm (1.8-8.0); PLATELET COUNT 244 Th/cmm (150-400); RED BLOOD COUNT 3.87 Mil/cmm (3.80-5.10); RED CELL DISTRIBUTION WIDTH 12.7 % (11.5-20.0); WHITE BLOOD COUNT 9.1 Th/cmm (4.8-10.8)
[2017-07-01 04:55] LABS: ALB/GLOB RATIO 1.2 (1.0-1.8); ALBUMIN 3.6 gm/dL (3.7-5.3); ALKALINE PHOSPHATASE 344 U/L (34-104); ANION GAP 10.6 (7.0-16.0); BILIRUBIN,TOTAL 0.5 mg/dL (0.3-1.0); BUN - UREA NITROGEN 19 mg/dL (7-25); CALCIUM SERUM 9.4 mg/dL (8.6-10.3); CARBON DIOXIDE 25.4 mEq/L (21.0-31.0); CHLORIDE 101 mEq/L (98-107); CREATININE - SERUM 0.6 mg/dL (0.6-1.2); GFR AFRICAN-AMERICAN > 60.0 ml/min (>90); GFR NON AFRICAN-AMERICAN > 60.0 ml/min; GLUCOSE 206 mg/dL (70-105); SGOT 23 U/L (13-39); SGPT/ALT 36 U/L (7-52); SODIUM SERUM 133 mEq/L (136-145); TOTAL PROTEIN,SERUM 6.6 gm/dL (6.0-8.3)
[2017-07-01] MEDS: Pantoprazole 40 mg EC Tab PO SCH (07:50)
[2017-07-01] MEDS ORDERED: Phenytoin 200 MG in Sodium Chloride 0.9% 46 ML IV ONE (08:00)
[2017-07-01] MEDS ORDERED: PHENYTOIN IV ONE ×2 (08:00→09:00)
[2017-07-01] MEDS ORDERED: SODIUM CHLORIDE 0.9% IV ONE ×2 (08:00→09:00)
[2017-07-01] MEDS ORDERED: Phenytoin 50 mg/mL 5 mL Vial IV ONE (08:15)
[2017-07-01] MEDS: Multivitamin w/ Minerals Tab PO SCH (09:31)
[2017-07-01] MEDS: Enoxaparin 40 mg/0.4 mL 0.4mL Syr SUBQ SCH (09:32)
[2017-07-01] MEDS: Cefepime 1 GM in Sodium Chloride 0.9% 50 ML IV SCH ×2 (09:50→21:35)
--- NOTE | 2017-07-01 09:50 | Diagnostic Imaging Report ---
Portable chest x-ray HISTORY: Shortness of breath The overall heart size is normal. No acute focal pulmonary processes. No hilar or mediastinal abnormalities. Vascular catheter tip seen in the left axillary region. IMPRESSION: 1. No acute abnormalities
[2017-07-01] MEDS: Insulin Detemir 100 units/mL 10mL Vial SUBQ SCH (09:51)
[2017-07-01] MEDS: D5-0.45NS 1,000 ML IV SCH (10:00)
[2017-07-01 10:46] LABS: URINE MICROSCOPIC INDICATED? YES; URINE SOURCE CATH
[2017-07-01 10:49] LABS: URINE BILIRUBIN NEGATIVE (NEGATIVE); URINE BLOOD TRACE (NEGATIVE); URINE GLUCOSE (UA) NEGATIVE (NEGATIVE); URINE KETONE NEGATIVE (NEGATIVE); URINE LEUKOCYTE ESTERASE MODERATE (NEGATIVE); URINE NITRATE NEGATIVE (NEGATIVE); URINE PH 5.5 (4.6 - 8.0); URINE PROTEIN TRACE mg/dL (NEGATIVE); URINE UROBILINOGEN 0.2 E.U./dL (0.2 - 1.0)
--- NOTE | 2017-07-01 10:58 | Infectious Disease Prog Note ---
Infectious Disease Subjective - Review of Systems Service Date: 07/01/17 Events since last encounter: had seizure episode, so transferred to the ICU. Subjective: No fever, no chills. Infectious Disease Objective - Results Result Diagrams: 07/02/17 04:27 07/02/17 04:27 Recent Labs: Laboratory Last Values WBC 9.1 Th/cmm (4.8-10.8) 07/01/17 04:17 RBC 3.87 Mil/cmm (3.80-5.10) 07/01/17 04:17 Hgb 11.8 gm/dL (12-16) L 07/01/17 04:17 Hct 35.3 % (41.0-60) L 07/01/17 04:17 MCV 91.1 fl (81-100) 07/01/17 04:17 MCH 30.4 pg (27.0-31.0) 07/01/17 04:17 MCHC Differential 33.4 pg (28.0-36.0) 07/01/17 04:17 RDW 12.7 % (11.5-20.0) 07/01/17 04:17 Plt Count 244 Th/cmm (150-400) 07/01/17 04:17 MPV 7.6 fl 07/01/17 04:17 Neutrophils % 77.1 % (40.0-80.0) 07/01/17 04:17 Lymphocytes % 15.7 % (20.0-50.0) L 07/01/17 04:17 Monocytes % 5.8 % (2.0-10.0) 07/01/17 04:17 Eosinophils % 1.0 % (0.0-5.0) 07/01/17 04:17 Basophils % 0.4 % (0.0-2.0) 07/01/17 04:17 PT 9.7 SECONDS (9.5-11.5) 06/28/17 05:20 INR 0.93 (0.5-1.4) 06/28/17 05:20 PTT (Actin FS) 22.1 SECONDS (26.0-38.0) L 06/27/17 14:12 Sodium 133 mEq/L (136-145) L 07/01/17 04:17 Potassium 4.0 mEq/L (3.5-5.1) 07/01/17 04:17 Chloride 101 mEq/L (98-107) 07/01/17 04:17 Carbon Dioxide 25.4 mEq/L (21.0-31.0) 07/01/17 04:17 Anion Gap 10.6 (7.0-16.0) 07/01/17 04:17 BUN 19 mg/dL (7-25) 07/01/17 04:17 Creatinine 0.6 mg/dL (0.6-1.2) 07/01/17 04:17 Est GFR ( Amer) > 60.0 ml/min (>90) 07/01/17 04:17 Est GFR (Non-Af Amer) > 60.0 ml/min 07/01/17 04:17 BUN/Creatinine Ratio 31.7 07/01/17 04:17 Glucose 206 mg/dL (70-105) H 07/01/17 04:17 POC Glucose 161 MG/DL (70 - 105) H 07/01/17 09:50 Hemoglobin A1c % 5.9 % (4.0-6.0) 06/26/17 13:45 Whole Bld Lactic Acid 1.22 mmol/L (0.60-1.99) 06/26/17 12:40 Calcium 9.4 mg/dL (8.6-10.3) 07/01/17 04:17 Total Bilirubin 0.5 mg/dL (0.3-1.0) 07/01/17 04:17 AST 23 U/L (13-39) 07/01/17 04:17 ALT 36 U/L (7-52) 07/01/17 04:17 Alkaline Phosphatase 344 U/L (34-104) H 07/01/17 04:17 Ammonia 93 umol/L (16-53) H 06/26/17 12:40 Troponin I < 0.01 ng/mL (0.01-0.05) L 06/26/17 12:40 Total Protein 6.6 gm/dL (6.0-8.3) 07/01/17 04:17 Albumin 3.6 gm/dL (3.7-5.3) L 07/01/17 04:17 Globulin 3.0 gm/dL 07/01/17 04:17 Albumin/Globulin Ratio 1.2 (1.0-1.8) 07/01/17 04:17 Vancomycin Trough 9.8 ug/mL (5-10) 06/29/17 09:15 Phenytoin 17.0 ug/ml (10.0-20.0) 07/01/17 10:00 Ethyl Alcohol < 10 mg/dL (0-10) 06/26/17 12:40 Serum Ketones NEGATIVE (NEGATIVE) 06/26/17 12:40 Blood Type O POSITIVE 06/30/17 08:30 Antibody Screen NEGATIVE 06/30/17 08:30 Crossmatch See Detail 06/30/17 08:30 - Physical Exam Vitals and I&O: Vital Signs Temp 98.1 F 07/01/17 04:00 Pulse 88 07/01/17 09:32 Resp 15 07/01/17 06:00 BP 104/58 07/01/17 09:32 Pulse Ox 100 07/01/17 06:00 Intake & Output 06/30/17 07/01/17 07/01/17 18:59 06:59 18:59 Intake Total 1904 094 2230 Output Total 500 Balance 1050 -345 1050 Weight (lbs) 66.678 kg Intake: Intake, IV Amount 8147 133 0359 Cefepime 1 gm In Sodium 50 50 50 Chloride 0.9% 50 ml @ 100 mls/hr IV Q12HR [facility] Rx#: [id number] D5-0.45NS 1,000 ml @ 70 1000 1000 mls/hr IV .[id number] [facility] Rx #:[id number] Oral 0 Output: Urine 500 Other: # Bowel Movements 0 Weight Source Bedscale Active Medications: Current Medications Acetaminophen (Tylenol Extra Strength) 500 mg PO Q4HR PRN PRN Reason: Mild Pain or Fever >101 Stop: 08/25/17 16:52 Last Admin: 06/27/17 11:33 Dose: 500 mg Acetaminophen/Hydrocodone Bitart ([place] 5mg/325mg) 1 tab PO Q6H PRN PRN Reason: Pain (Moderate) Stop: 08/25/17 16:52 Ascorbic Acid (Vitamin C) 500 mg PO DAILY [facility] Stop: 08/26/17 08:59 Last Admin: 07/01/17 09:31 Dose: 500 mg Carvedilol (Coreg) 3.125 mg PO BID [facility] Stop: 08/25/17 16:59 Last Admin: 07/01/17 09:32 Dose: Not Given Enoxaparin Sodium (Lovenox) 40 mg SUBQ DAILY [facility] Stop: 08/26/17 08:59 Last Admin: 07/01/17 09:32 Dose: 40 mg Glucagon (Glucagen) 1 mg IM PRN PRN PRN Reason: LOW BLOOD SUGAR Stop: 08/25/17 16:52 Hydromorphone HCl (Dilaudid) 1 mg IVP Q4HR PRN PRN Reason: Pain (Moderate) Stop: 07/01/17 13:19 Cefepime HCl 1 gm/ Sodium (Chloride) 50 mls @ 100 mls/hr IV Q12HR [facility] Stop: 08/25/17 20:59 Last Infusion: 07/01/17 10:20 Dose: Infused Dextrose/Sodium Chloride (D5-0.45ns) 1,000 mls @ 70 mls/hr IV .[id number] [facility] Stop: 08/28/17 23:44 Last Admin: 07/01/17 10:00 Dose: 70 mls/hr Phenytoin 200 mg/ Sodium (Chloride) 54 mls @ 100 mls/hr IV Q12H [facility] Stop: 08/30/17 16:59 Insulin Detemir (Levemir Insulin) 15 units SUBQ DAILY [facility] PRN Reason: Protocol Stop: 08/26/17 08:59 Last Admin: 07/01/17 09:51 Dose: 15 units Lisinopril (Zestril) 5 mg PO DAILY [facility] Stop: 08/26/17 08:59 Last Admin: 07/01/17 09:31 Dose: Not Given Lorazepam (Ativan) 1 mg IVP Q4HR PRN; Protocol PRN Reason: SEIZURES Stop: 08/30/17 00:55 Metoprolol Tartrate (Lopressor) 5 mg IV Q6H PRN PRN Reason: HR> 140 Stop: 08/30/17 00:56 Last Admin: 07/01/17 02:07 Dose: 5 mg Morphine Sulfate (Morphine) 2 mg IVP Q4HR PRN PRN Reason: Pain (Moderate) Stop: 08/25/17 16:50 Last Admin: 07/01/17 02:17 Dose: 2 mg Mupirocin (Bactroban Oint) 1 appl NS BID JOHN Stop: 07/03/17 09:01 Last Admin: 07/01/17 09:46 Dose: 1 appl Pantoprazole Sodium (Protonix) 40 mg PO QDAC JOHN Stop: 08/26/17 07:29 Last Admin: 07/01/17 07:50 Dose: 40 mg Phenytoin (Dilantin) 200 mg PO QAM JOHN Stop: 08/26/17 08:59 Last Admin: 07/01/17 09:31 Dose: 200 mg Phenytoin (Dilantin) 100 mg PO QPM JOHN Stop: 08/26/17 16:59 Last Admin: 06/30/17 17:14 Dose: Not Given Phenytoin (Dilantin) 100 mg PO HS [facility] Stop: 08/30/17 20:59 General: no acute distress, cachectic HEENT: atraumatic, normocephalic, PERRLA, EOMI, moist mucous membrane Neck: supple, no thyromegaly Cardiovascular: S1S2, regular Lungs: clear to auscultation bilaterally, clear to percussion Abdomen: soft, no tender Extremities: no cyanosis, no clubbing, no edema Neurological: other (drowsy) - Procedures Procedures: Procedures Procedure Code Date GROUP PSYCHOTHERAPY 97608 01/01/15 GROUP PSYCHOTHERAPY GZHZZZZ 01/01/15 OTHER GROUP THERAPY 94.44 11/05/14 Infectious Disease Assmt/Plan - Assessment Assessment: 1. Swelling of the right knee likely reactive versus septic arthritis. periprosthetic fracture. 2. Fracture of distal right femur. 3. Diabetes mellitus type 2. 4. Hypertension. 5. Hyperlipidemia. 6. UTI. 7. TKR of right knee. 8. breaktrough seizures. - Plan Plan: Will continue same treatment. Surgery planned today. Nutritional Asmnt/Malnutr-PDOC - Dietary Evaluation Malnutrition Findings (Please click <Entered> for more info): Nutritional Asmnt/Malnutrition Start: 06/28/17 14: 16 Text: Status: Active Freq: Document 06/28/17 14:16 VINNIE (Rec: 06/28/17 14:32 VINNIE [email or web address]) Nutritional Asmnt/Malnutrition Patient General Information Nutritional Screening High Risk Diagnosis right knee swelling Pertinent Medical Hx/Surgical Hx CVA, DM, HTN, [id number], DJD, hip and left knee fracture Subjective Information Pt was not available at time of visit. Pt is on NPO from midnight for possibel surgery today. Pt was on CCHO6-gm diet . Per EMR, PO intake 75-100%. Current Diet Order/ Nutrition Support NPO Pertinent Medications vit C, levemir, protonix, vancomycin Pertinent Labs 7 na 135, glucose 131 5/6 glucose 188 5/5 glucose 189, A1c 5.9 Nutritional Hx/Data Height 1.65 m Height (Calculated Centimeters) 165.1 Current Weight (lbs) 68.946 kg Weight (Calculated Kilograms) 68.9 Weight (Calculated Grams) 41501.0 [place] Body Weight 125 Body Mass Index (BMI) 25.2 Weight Status Overweight GI Symptoms GI Symptoms None Last BM 5/6 Difficult in: None Skin Integrity/Comment: right knee swollen Current %PO Good (75-100%) Estimated Nutritional Goals BEE in Kcals: Using Current wt Calories/Kcals/Kg 25-27 Kcals Calculated 4415-0495 Protein: Using Current wt Protein g/k Protein Calculated 69 Fluid: ml 1587-1863ml (1ml/kcal) Nutritional Problem 1. Problem Problem altered nutrition related labs Etiology hx of DM Signs/Symptoms: glucose 131-189, A1c 5.9 Malnutrition Alert Protein-Calorie Malnutrition N/A Is there a minimum of two criteria No selected? Query Text:Check all the applicable criteria. A minimum of two criteria are recommended for diagnosis of either severe or non-severe malnutrition. Intervention/Recommendation Comments 1. Resume CCHO-60gm diet as needed 2. Monitor PO intake, wt, labs and skin integrity 3. F/U as moderate risk in 3-5 days, 07/01-07/03 Expected Outcomes/Goals Expected Outcomes/Goals 1. PO intake to meet at least 75% of nutritional needs. 2. Wt stability, skin to remain intact, labs to approach WNL.
[2017-07-01 11:13] LABS: URINE CLARITY TURBID (CLEAR); URINE COLOR YELLOW
[2017-07-01 11:14] LABS: URINE RBC 0-2 /hpf (0-5)
[2017-07-01 11:16] LABS: URINE BACTERIA MODERATE /hpf (NONE SEEN); URINE EPITHELIAL CELLS FEW /lpf (FEW); URINE WBC 50-100 /hpf (0-5)
[2017-07-01] MEDS ORDERED: Phenytoin 50 mg/mL 2 mL Vial IVP SCH (17:00)
[2017-07-01] MEDS: Hydrocodone/APAP 5mg/325mg Tab PO PRN (17:00)
--- NOTE | 2017-07-01 20:28 | General Progress Note ---
Subjective - Review of Systems Service Date: 07/01/17 Subjective: Patient seen and examined last night patient has seizure episode so she was transferred to ICU since then no seizure episode reported. Objective - Results Result Diagrams: 07/01/17 04:17 07/01/17 04:17 Recent Labs: Laboratory Last Values WBC 9.1 Th/cmm (4.8-10.8) 07/01/17 04:17 RBC 3.87 Mil/cmm (3.80-5.10) 07/01/17 04:17 Hgb 11.8 gm/dL (12-16) L 07/01/17 04:17 Hct 35.3 % (41.0-60) L 07/01/17 04:17 MCV 91.1 fl (81-100) 07/01/17 04:17 MCH 30.4 pg (27.0-31.0) 07/01/17 04:17 MCHC Differential 33.4 pg (28.0-36.0) 07/01/17 04:17 RDW 12.7 % (11.5-20.0) 07/01/17 04:17 Plt Count 244 Th/cmm (150-400) 07/01/17 04:17 MPV 7.6 fl 07/01/17 04:17 Neutrophils % 77.1 % (40.0-80.0) 07/01/17 04:17 Lymphocytes % 15.7 % (20.0-50.0) L 07/01/17 04:17 Monocytes % 5.8 % (2.0-10.0) 07/01/17 04:17 Eosinophils % 1.0 % (0.0-5.0) 07/01/17 04:17 Basophils % 0.4 % (0.0-2.0) 07/01/17 04:17 PT 9.7 SECONDS (9.5-11.5) 06/28/17 05:20 INR 0.93 (0.5-1.4) 06/28/17 05:20 PTT (Actin FS) 22.1 SECONDS (26.0-38.0) L 06/27/17 14:12 Sodium 133 mEq/L (136-145) L 07/01/17 04:17 Potassium 4.0 mEq/L (3.5-5.1) 07/01/17 04:17 Chloride 101 mEq/L (98-107) 07/01/17 04:17 Carbon Dioxide 25.4 mEq/L (21.0-31.0) 07/01/17 04:17 Anion Gap 10.6 (7.0-16.0) 07/01/17 04:17 BUN 19 mg/dL (7-25) 07/01/17 04:17 Creatinine 0.6 mg/dL (0.6-1.2) 07/01/17 04:17 Est GFR ( Amer) > 60.0 ml/min (>90) 07/01/17 04:17 Est GFR (Non-Af Amer) > 60.0 ml/min 07/01/17 04:17 BUN/Creatinine Ratio 31.7 07/01/17 04:17 Glucose 206 mg/dL (70-105) H 07/01/17 04:17 POC Glucose 161 MG/DL (70 - 105) H 07/01/17 09:50 Hemoglobin A1c % 5.9 % (4.0-6.0) 06/26/17 13:45 Whole Bld Lactic Acid 1.22 mmol/L (0.60-1.99) 06/26/17 12:40 Calcium 9.4 mg/dL (8.6-10.3) 07/01/17 04:17 Total Bilirubin 0.5 mg/dL (0.3-1.0) 07/01/17 04:17 AST 23 U/L (13-39) 07/01/17 04:17 ALT 36 U/L (7-52) 07/01/17 04:17 Alkaline Phosphatase 344 U/L (34-104) H 07/01/17 04:17 Ammonia 93 umol/L (16-53) H 06/26/17 12:40 Troponin I < 0.01 ng/mL (0.01-0.05) L 06/26/17 12:40 Total Protein 6.6 gm/dL (6.0-8.3) 07/01/17 04:17 Albumin 3.6 gm/dL (3.7-5.3) L 07/01/17 04:17 Globulin 3.0 gm/dL 07/01/17 04:17 Albumin/Globulin Ratio 1.2 (1.0-1.8) 07/01/17 04:17 Urine Source CATH 07/01/17 10:30 Urine Color YELLOW 07/01/17 10:30 Urine Clarity TURBID (CLEAR) H 07/01/17 10:30 Urine pH 5.5 (4.6 - 8.0) 07/01/17 10:30 Ur Specific [place] 1.025 (1.005-1.030) 07/01/17 10:30 Urine Protein TRACE mg/dL (NEGATIVE) 07/01/17 10:30 Urine Glucose (UA) NEGATIVE mg/dL (NEGATIVE) 07/01/17 10:30 Urine Ketones NEGATIVE mg/dL (NEGATIVE) 07/01/17 10:30 Urine Blood TRACE (NEGATIVE) 07/01/17 10:30 Urine Nitrate NEGATIVE (NEGATIVE) 07/01/17 10:30 Urine Bilirubin NEGATIVE (NEGATIVE) 07/01/17 10:30 Urine Urobilinogen 0.2 E.U./dL (0.2 - 1.0) 07/01/17 10:30 Ur Leukocyte Esterase MODERATE (NEGATIVE) H 07/01/17 10:30 Urine RBC 0-2 /hpf (0-5) 07/01/17 10:30 Urine WBC 50-100 /hpf (0-5) H 07/01/17 10:30 Ur Epithelial Cells FEW /lpf (FEW) 07/01/17 10:30 Urine Bacteria MODERATE /hpf (NONE SEEN) H 07/01/17 10:30 Vancomycin Trough 9.8 ug/mL (5-10) 06/29/17 09:15 Phenytoin 17.0 ug/ml (10.0-20.0) 07/01/17 10:00 Ethyl Alcohol < 10 mg/dL (0-10) 06/26/17 12:40 Serum Ketones NEGATIVE (NEGATIVE) 06/26/17 12:40 Blood Type O POSITIVE 06/30/17 08:30 Antibody Screen NEGATIVE 06/30/17 08:30 Crossmatch See Detail 06/30/17 08:30 - Physical Exam Vitals and I&O: Vital Signs Temp 97.4 F 07/01/17 18:00 Pulse 87 07/01/17 19:00 Resp 15 07/01/17 19:00 BP 114/48 07/01/17 19:00 Pulse Ox 97 07/01/17 19:00 Intake & Output 07/01/17 07/01/17 07/02/17 06:59 18:59 06:59 Intake Total 155 1954 Output Total 500 600 150 Balance -345 1354 -150 Weight (lbs) 66.678 kg 66.82 kg 66.82 kg Intake: Intake, IV Amount 155 1154 Cefepime 1 gm In Sodium 50 50 Chloride 0.9% 50 ml @ 100 mls/hr IV Q12HR [facility] Rx#: [id number] D5-0.45NS 1,000 ml @ 70 1000 mls/hr IV .[id number] [facility] Rx #:[id number] Phenytoin 200 mg In 54 Sodium Chloride 0.9% 50 ml @ 100 mls/hr IV Q12H [facility] Rx#:[id number] Oral 0 800 Output: Urine 500 600 150 Other: # Bowel Movements 0 0 Weight Source Bedscale Bedscale Bedscale Active Medications: Current Medications Acetaminophen (Tylenol Extra Strength) 500 mg PO Q4HR PRN PRN Reason: Mild Pain or Fever >101 Stop: 08/25/17 16:52 Last Admin: 06/27/17 11:33 Dose: 500 mg Acetaminophen/Hydrocodone Bitart ([place] 5mg/325mg) 1 tab PO Q6H PRN PRN Reason: Pain (Moderate) Stop: 08/25/17 16:52 Last Admin: 07/01/17 17:00 Dose: 1 tab Ascorbic Acid (Vitamin C) 500 mg PO DAILY [facility] Stop: 08/26/17 08:59 Last Admin: 07/01/17 09:31 Dose: 500 mg Carvedilol (Coreg) 3.125 mg PO BID [facility] Stop: 08/25/17 16:59 Last Admin: 07/01/17 17:00 Dose: 3.125 mg Enoxaparin Sodium (Lovenox) 40 mg SUBQ DAILY [facility] Stop: 08/26/17 08:59 Last Admin: 07/01/17 09:32 Dose: 40 mg Glucagon (Glucagen) 1 mg IM PRN PRN PRN Reason: LOW BLOOD SUGAR Stop: 08/25/17 16:52 Cefepime HCl 1 gm/ Sodium (Chloride) 50 mls @ 100 mls/hr IV Q12HR [facility] Stop: 08/25/17 20:59 Last Infusion: 07/01/17 10:20 Dose: Infused Dextrose/Sodium Chloride (D5-0.45ns) 1,000 mls @ 70 mls/hr IV .[id number] [facility] Stop: 08/28/17 23:44 Last Admin: 07/01/17 10:00 Dose: 70 mls/hr Phenytoin 200 mg/ Sodium (Chloride) 54 mls @ 100 mls/hr IV Q12H [facility] Stop: 08/30/17 16:59 Last Infusion: 07/01/17 17:35 Dose: Infused Insulin Detemir (Levemir Insulin) 15 units SUBQ DAILY JOHN PRN Reason: Protocol Stop: 08/26/17 08:59 Last Admin: 07/01/17 09:51 Dose: 15 units Lisinopril (Zestril) 5 mg PO DAILY [facility] Stop: 08/26/17 08:59 Last Admin: 07/01/17 09:31 Dose: Not Given Lorazepam (Ativan) 1 mg IVP Q4HR PRN; Protocol PRN Reason: SEIZURES Stop: 08/30/17 00:55 Metoprolol Tartrate (Lopressor) 5 mg IV Q6H PRN PRN Reason: HR> 140 Stop: 08/30/17 00:56 Last Admin: 07/01/17 02:07 Dose: 5 mg Morphine Sulfate (Morphine) 2 mg IVP Q4HR PRN PRN Reason: Pain (Moderate) Stop: 08/25/17 16:50 Last Admin: 07/01/17 17:20 Dose: 2 mg Mupirocin (Bactroban Oint) 1 appl NS BID [facility] Stop: 07/03/17 09:01 Last Admin: 07/01/17 17:01 Dose: 1 appl Pantoprazole Sodium (Protonix) 40 mg PO QDAC [facility] Stop: 08/26/17 07:29 Last Admin: 07/01/17 07:50 Dose: 40 mg Phenytoin (Dilantin) 200 mg PO QAM [facility] Stop: 08/26/17 08:59 Last Admin: 07/01/17 09:31 Dose: 200 mg Phenytoin (Dilantin) 100 mg PO QPM [facility] Stop: 08/26/17 16:59 Last Admin: 07/01/17 17:00 Dose: 100 mg Cardiovascular: Regular rate Lungs: Clear to auscultation Extremities: Other (Right knee immobilizer in place) Neurological: Other (sleepy) - Procedures Procedures: Procedures Procedure Code Date GROUP PSYCHOTHERAPY 50500 01/01/15 GROUP PSYCHOTHERAPY GZHZZZZ 01/01/15 OTHER GROUP THERAPY 94.44 11/05/14 Assessment/Plan - Assessment Assessment: Right Femur fracture Seizure UTI DM II HTN Menta health disorder - Plan Plan: Loading dilantin dose given per Neurology Repeat dilantin level is 17 Monitor seizure Awaiting ORIF (OR problem) IV cefemine Knee immobilizer DVT prophylaxis Morphine prn Psych consult Plan of care discussed with nursing staff Nutritional Asmnt/Malnutr-PDOC - Dietary Evaluation Malnutrition Findings (Please click <Entered> for more info): Nutritional Asmnt/Malnutrition Start: 06/28/17 14: 16 Text: Status: Active Freq: Document 06/28/17 14:16 VINNIE (Rec: 06/28/17 14:32 VINNIE PIPPA-[facility]) Nutritional Asmnt/Malnutrition Patient General Information Nutritional Screening High Risk Diagnosis right knee swelling Pertinent Medical Hx/Surgical Hx CVA, DM, HTN, [id number], DJD, hip and left knee fracture Subjective Information Pt was not available at time of visit. Pt is on NPO from midnight for possibel surgery today. Pt was on CCHO6-gm diet . Per EMR, PO intake 75-100%. Current Diet Order/ Nutrition Support NPO Pertinent Medications vit C, levemir, protonix, vancomycin Pertinent Labs 5/7 na 135, glucose 131 5/6 glucose 188 5/5 glucose 189, A1c 5.9 Nutritional Hx/Data Height 1.65 m Height (Calculated Centimeters) 165.1 Current Weight (lbs) 68.946 kg Weight (Calculated Kilograms) 68.9 Weight (Calculated Grams) 77320.0 Ruby Body Weight 125 Body Mass Index (BMI) 25.2 Weight Status Overweight GI Symptoms GI Symptoms None Last BM 5/6 Difficult in: None Skin Integrity/Comment: right knee swollen Current %PO Good (75-100%) Estimated Nutritional Goals BEE in Kcals: Using Current wt Calories/Kcals/Kg 25-27 Kcals Calculated 6820-6710 Protein: Using Current wt Protein g/k Protein Calculated 69 Fluid: ml 1587-1863ml (1ml/kcal) Nutritional Problem 1. Problem Problem altered nutrition related labs Etiology hx of DM Signs/Symptoms: glucose 131-189, A1c 5.9 Malnutrition Alert Protein-Calorie Malnutrition N/A Is there a minimum of two criteria No selected? Query Text:Check all the applicable criteria. A minimum of two criteria are recommended for diagnosis of either severe or non-severe malnutrition. Intervention/Recommendation Comments 1. Resume CCHO-60gm diet as needed 2. Monitor PO intake, wt, labs and skin integrity 3. F/U as moderate risk in 3-5 days, 07/01-07/03 Expected Outcomes/Goals Expected Outcomes/Goals 1. PO intake to meet at least 75% of nutritional needs. 2. Wt stability, skin to remain intact, labs to approach WNL.
--- NOTE | 2017-07-01 22:26 | Consultation ---
DATE OF CONSULTATION: 07/01/2017 HISTORY OF PRESENT ILLNESS: The patient complains of knee pain, leg pain. The patient's workup showed that she has a comminuted fracture, right distal condyle, seen by orthopedic, planned for surgery. She has had problem with the left side before, limited ambulation. PAST MEDICAL HISTORY: Question of dementia, Diabetes, coronary artery disease. The patient has history of hyperlipidemia. Previous stroke. The patient's previous knee pains, fracture. The patient in the usp, limited ambulation. MEDICATIONS: The patient has been on Dilantin, history of seizures. Here, the patient had seizure. Dilantin level very low. PAST SURGERIES: Hip surgery. SOCIAL HISTORY: In a usp. Does not smoke or drink. MEDICATIONS: As per reconciliation, Dilantin. REVIEW OF SYSTEMS: The patient is sleepy, will awaken up. Moves upper extremity, limited movement lower extremity. The patient has a right leg brace. Left leg also limited movement. Some withdrawal. PHYSICAL EXAMINATION: VITAL SIGNS: Temperature 98.1, blood pressure 110/54, and pulse is 90. NECK: Supple. No neck bruits. HEART: Sounds S1, S2. LUNGS: Clear. NEUROLOGIC: The patient is lying in bed. Eyes closed. I do not get much response to verbal. Painful stimulation, she will withdraw upper extremity. Pupils are about 4 mm, react to light. The patient will move her eyes. She will spontaneously move upper extremities. Limited movement of lower extremity. The patient's right leg would not move much because of pain. Left leg, she has increased tone, kind of spasticity semi-flexed. Limited movement. Reflexes: About 1 in upper extremity. I could not get much at the left knee or ankle. I did not try the right side. IMPRESSION: Seizures. Dilantin level very low. We will give her a loading dose of Dilantin now 1000 mg IV, then 200 mg IV q. 12 hours. Check her Dilantin level. Adjust medication accordingly. If still seizures, then probably add in Keppra. In view of the recurrent seizures, the patient also question may have had a fall, I am going to go ahead and do a CT scan of the head. Check the lab studies. JOB# [id number]
[2017-07-02] MEDS: Hydrocodone/APAP 5mg/325mg Tab PO PRN (01:40)
[2017-07-02 04:37] LABS: % BASOPHILS 0.6 % (0.0-2.0); % EOSINOPHILS 5.6 % (0.0-5.0); % LYMPHOCYTES 24.2 % (20.0-50.0); % MONOCYTES 6.6 % (2.0-10.0); EOSINOPHILE ABSOLUTE 0.4 Th/cmm (0.1-0.4); HEMATOCRIT 35.5 % (41.0-60); LYMPHOCYTE ABSOLUTE 1.9 Th/cmm (1.5-3.0); MEAN CELL VOLUME 91.1 fl (81-100); MEAN CORPUSCULAR HEMOGLOBIN 30.9 pg (27.0-31.0); MEAN CORPUSCULAR HGB CONC 33.9 pg (28.0-36.0); MEAN PLATELET VOLUME 7.3 fl; MONOCYTE ABSOLUTE 0.5 Th/cmm (0.3-1.0); NEUTROPHILE ABSOLUTE 4.9 Th/cmm (1.8-8.0); PLATELET COUNT 243 Th/cmm (150-400); RED CELL DISTRIBUTION WIDTH 12.9 % (11.5-20.0); WHITE BLOOD COUNT 7.7 Th/cmm (4.8-10.8)
[2017-07-02 04:56] LABS: ANION GAP 10.2 (7.0-16.0); BUN - UREA NITROGEN 14 mg/dL (7-25); CALCIUM SERUM 9.3 mg/dL (8.6-10.3); CARBON DIOXIDE 26.5 mEq/L (21.0-31.0); CHLORIDE 102 mEq/L (98-107); CREATININE - SERUM 0.6 mg/dL (0.6-1.2); GFR AFRICAN-AMERICAN > 60.0 ml/min (>90); GFR NON AFRICAN-AMERICAN > 60.0 ml/min; GLUCOSE 152 mg/dL (70-105); PHENYTOIN 13.7 ug/ml (10.0-20.0); POTASSIUM SERUM 3.7 mEq/L (3.5-5.1); SODIUM SERUM 135 mEq/L (136-145)
[2017-07-02] MEDS: Morphine Sulfate 4 mg/mL 1mL Syr IVP PRN ×2 (08:00→13:41)
[2017-07-02] MEDS: Insulin Detemir 100 units/mL 10mL Vial SUBQ SCH (08:05)
[2017-07-02] MEDS: Pantoprazole 40 mg EC Tab PO SCH (08:05)
[2017-07-02] MEDS: Multivitamin w/ Minerals Tab PO SCH (08:21)
[2017-07-02] MEDS: Cefepime 1 GM in Sodium Chloride 0.9% 50 ML IV SCH ×2 (08:22→21:03)
[2017-07-02] MEDS: Enoxaparin 40 mg/0.4 mL 0.4mL Syr SUBQ SCH (08:22)
--- NOTE | 2017-07-02 10:28 | Infectious Disease Prog Note ---
Infectious Disease Subjective - Review of Systems Service Date: 07/02/17 Subjective: No fever, no chills. Infectious Disease Objective - Results Result Diagrams: 07/02/17 04:27 07/02/17 04:27 Recent Labs: Laboratory Last Values WBC 7.7 Th/cmm (4.8-10.8) 07/02/17 04:27 RBC 3.90 Mil/cmm (3.80-5.10) 07/02/17 04:27 Hgb 12.0 gm/dL (12-16) 07/02/17 04:27 Hct 35.5 % (41.0-60) L 07/02/17 04:27 MCV 91.1 fl (81-100) 07/02/17 04:27 MCH 30.9 pg (27.0-31.0) 07/02/17 04:27 MCHC Differential 33.9 pg (28.0-36.0) 07/02/17 04:27 RDW 12.9 % (11.5-20.0) 07/02/17 04:27 Plt Count 243 Th/cmm (150-400) 07/02/17 04:27 MPV 7.3 fl 07/02/17 04:27 Neutrophils % 63.0 % (40.0-80.0) 07/02/17 04:27 Lymphocytes % 24.2 % (20.0-50.0) 07/02/17 04:27 Monocytes % 6.6 % (2.0-10.0) 07/02/17 04:27 Eosinophils % 5.6 % (0.0-5.0) H 07/02/17 04:27 Basophils % 0.6 % (0.0-2.0) 07/02/17 04:27 PT 9.7 SECONDS (9.5-11.5) 06/28/17 05:20 INR 0.93 (0.5-1.4) 06/28/17 05:20 PTT (Actin FS) 22.1 SECONDS (26.0-38.0) L 06/27/17 14:12 Sodium 135 mEq/L (136-145) L 07/02/17 04:27 Potassium 3.7 mEq/L (3.5-5.1) 07/02/17 04:27 Chloride 102 mEq/L (98-107) 07/02/17 04:27 Carbon Dioxide 26.5 mEq/L (21.0-31.0) 07/02/17 04:27 Anion Gap 10.2 (7.0-16.0) 07/02/17 04:27 BUN 14 mg/dL (7-25) 07/02/17 04:27 Creatinine 0.6 mg/dL (0.6-1.2) 07/02/17 04:27 Est GFR ( Amer) > 60.0 ml/min (>90) 07/02/17 04:27 Est GFR (Non-Af Amer) > 60.0 ml/min 07/02/17 04:27 BUN/Creatinine Ratio 23.3 07/02/17 04:27 Glucose 152 mg/dL (70-105) H 07/02/17 04:27 POC Glucose 161 MG/DL (70 - 105) H 07/01/17 09:50 Hemoglobin A1c % 5.9 % (4.0-6.0) 06/26/17 13:45 Whole Bld Lactic Acid 1.22 mmol/L (0.60-1.99) 06/26/17 12:40 Calcium 9.3 mg/dL (8.6-10.3) 07/02/17 04:27 Total Bilirubin 0.5 mg/dL (0.3-1.0) 07/01/17 04:17 AST 23 U/L (13-39) 07/01/17 04:17 ALT 36 U/L (7-52) 07/01/17 04:17 Alkaline Phosphatase 344 U/L (34-104) H 07/01/17 04:17 Ammonia 93 umol/L (16-53) H 06/26/17 12:40 Troponin I < 0.01 ng/mL (0.01-0.05) L 06/26/17 12:40 Total Protein 6.6 gm/dL (6.0-8.3) 07/01/17 04:17 Albumin 3.6 gm/dL (3.7-5.3) L 07/01/17 04:17 Globulin 3.0 gm/dL 07/01/17 04:17 Albumin/Globulin Ratio 1.2 (1.0-1.8) 07/01/17 04:17 Urine Source CATH 07/01/17 10:30 Urine Color YELLOW 07/01/17 10:30 Urine Clarity TURBID (CLEAR) H 07/01/17 10:30 Urine pH 5.5 (4.6 - 8.0) 07/01/17 10:30 Ur Specific [place] 1.025 (1.005-1.030) 07/01/17 10:30 Urine Protein TRACE mg/dL (NEGATIVE) 07/01/17 10:30 Urine Glucose (UA) NEGATIVE mg/dL (NEGATIVE) 07/01/17 10:30 Urine Ketones NEGATIVE mg/dL (NEGATIVE) 07/01/17 10:30 Urine Blood TRACE (NEGATIVE) 07/01/17 10:30 Urine Nitrate NEGATIVE (NEGATIVE) 07/01/17 10:30 Urine Bilirubin NEGATIVE (NEGATIVE) 07/01/17 10:30 Urine Urobilinogen 0.2 E.U./dL (0.2 - 1.0) 07/01/17 10:30 Ur Leukocyte Esterase MODERATE (NEGATIVE) H 07/01/17 10:30 Urine RBC 0-2 /hpf (0-5) 07/01/17 10:30 Urine WBC 50-100 /hpf (0-5) H 07/01/17 10:30 Ur Epithelial Cells FEW /lpf (FEW) 07/01/17 10:30 Urine Bacteria MODERATE /hpf (NONE SEEN) H 07/01/17 10:30 Vancomycin Trough 9.8 ug/mL (5-10) 06/29/17 09:15 Phenytoin 13.7 ug/ml (10.0-20.0) 07/02/17 04:27 Ethyl Alcohol < 10 mg/dL (0-10) 06/26/17 12:40 Serum Ketones NEGATIVE (NEGATIVE) 06/26/17 12:40 Blood Type O POSITIVE 06/30/17 08:30 Antibody Screen NEGATIVE 06/30/17 08:30 Crossmatch See Detail 06/30/17 08:30 - Physical Exam Vitals and I&O: Vital Signs Temp 97.9 F 07/02/17 10:00 Pulse 96 07/02/17 10:00 Resp 15 07/02/17 10:00 BP 124/68 07/02/17 10:00 Pulse Ox 97 07/02/17 10:00 Intake & Output 07/01/17 07/02/17 07/02/17 18:59 06:59 18:59 Intake Total 1954 104 Output Total 600 1525 Balance 1354 -1421 Weight (lbs) 66.82 kg 64.41 kg Intake: Intake, IV Amount 1154 104 Cefepime 1 gm In Sodium 50 50 Chloride 0.9% 50 ml @ 100 mls/hr IV Q12HR [facility] Rx#: [id number] D5-0.45NS 1,000 ml @ 70 1000 mls/hr IV .[id number] [facility] Rx #:[id number] Phenytoin 200 mg In 54 54 Sodium Chloride 0.9% 50 ml @ 100 mls/hr IV Q12H [facility] Rx#:[id number] Oral 800 Output: Urine 600 1525 Other: # Bowel Movements 0 Weight Source Bedscale Bedscale Active Medications: Current Medications Acetaminophen (Tylenol Extra Strength) 500 mg PO Q4HR PRN PRN Reason: Mild Pain or Fever >101 Stop: 08/25/17 16:52 Last Admin: 06/27/17 11:33 Dose: 500 mg Acetaminophen/Hydrocodone Bitart ([place] 5mg/325mg) 1 tab PO Q6H PRN PRN Reason: Pain (Moderate) Stop: 08/25/17 16:52 Last Admin: 07/02/17 01:40 Dose: 1 tab Ascorbic Acid (Vitamin C) 500 mg PO DAILY [facility] Stop: 08/26/17 08:59 Last Admin: 07/02/17 08:21 Dose: 500 mg Carvedilol (Coreg) 3.125 mg PO BID [facility] Stop: 08/25/17 16:59 Last Admin: 07/02/17 08:21 Dose: 3.125 mg Enoxaparin Sodium (Lovenox) 40 mg SUBQ DAILY [facility] Stop: 08/26/17 08:59 Last Admin: 07/02/17 08:22 Dose: 40 mg Glucagon (Glucagen) 1 mg IM PRN PRN PRN Reason: LOW BLOOD SUGAR Stop: 08/25/17 16:52 Cefepime HCl 1 gm/ Sodium (Chloride) 50 mls @ 100 mls/hr IV Q12HR [facility] Stop: 08/25/17 20:59 Last Admin: 07/02/17 08:22 Dose: 100 mls/hr Dextrose/Sodium Chloride (D5-0.45ns) 1,000 mls @ 70 mls/hr IV .[id number] [facility] Stop: 08/28/17 23:44 Last Admin: 07/01/17 10:00 Dose: 70 mls/hr Phenytoin 200 mg/ Sodium (Chloride) 54 mls @ 100 mls/hr IV Q12H [facility] Stop: 08/30/17 16:59 Last Infusion: 07/02/17 06:25 Dose: Infused Insulin Detemir (Levemir Insulin) 15 units SUBQ DAILY JOHN PRN Reason: Protocol Stop: 08/26/17 08:59 Last Admin: 07/02/17 08:05 Dose: 15 units Lisinopril (Zestril) 5 mg PO DAILY [facility] Stop: 08/26/17 08:59 Last Admin: 07/02/17 08:21 Dose: 5 mg Lorazepam (Ativan) 1 mg IVP Q4HR PRN; Protocol PRN Reason: SEIZURES Stop: 08/30/17 00:55 Last Admin: 07/02/17 04:01 Dose: 1 mg Metoprolol Tartrate (Lopressor) 5 mg IV Q6H PRN PRN Reason: HR> 140 Stop: 08/30/17 00:56 Last Admin: 07/01/17 02:07 Dose: 5 mg Morphine Sulfate (Morphine) 2 mg IVP Q4HR PRN PRN Reason: Pain (Moderate) Stop: 08/25/17 16:50 Last Admin: 07/02/17 08:00 Dose: 2 mg Mupirocin (Bactroban Oint) 1 appl NS BID [facility] Stop: 07/03/17 09:01 Last Admin: 07/02/17 08:22 Dose: 1 appl Pantoprazole Sodium (Protonix) 40 mg PO QDAC [facility] Stop: 08/26/17 07:29 Last Admin: 07/02/17 08:05 Dose: 40 mg Phenytoin (Dilantin) 200 mg PO QAM [facility] Stop: 08/26/17 08:59 Last Admin: 07/02/17 08:21 Dose: 200 mg Phenytoin (Dilantin) 100 mg PO QPM [facility] Stop: 08/26/17 16:59 Last Admin: 07/01/17 17:00 Dose: 100 mg General: no acute distress, cachectic HEENT: atraumatic, normocephalic, PERRLA Neck: supple, no thyromegaly Cardiovascular: S1S2, regular Lungs: clear to auscultation bilaterally, clear to percussion Abdomen: soft, no tender Extremities: no cyanosis, no clubbing, no edema Neurological: awake, alert, oriented Skin: intact - Procedures Procedures: Procedures Procedure Code Date GROUP PSYCHOTHERAPY 33557 01/01/15 GROUP PSYCHOTHERAPY GZHZZZZ 01/01/15 OTHER GROUP THERAPY 94.44 11/05/14 Infectious Disease Assmt/Plan - Assessment Assessment: 1. Swelling of the right knee likely reactive versus septic arthritis. periprosthetic fracture. 2. Fracture of distal right femur. 3. Diabetes mellitus type 2. 4. Hypertension. 5. Hyperlipidemia. 6. UTI. 7. TKR of right knee. 8. breaktrough seizures. - Plan Plan: Will continue same treatment. . Nutritional Asmnt/Malnutr-PDOC - Dietary Evaluation Malnutrition Findings (Please click <Entered> for more info): Nutritional Asmnt/Malnutrition Start: 06/28/17 14: 16 Text: Status: Active Freq: Document 06/28/17 14:16 MADIE (Rec: 06/28/17 14:32 [facility] Nutritional Asmnt/Malnutrition Patient General Information Nutritional Screening High Risk Diagnosis right knee swelling Pertinent Medical Hx/Surgical Hx CVA, DM, HTN, [id number], DJD, hip and left knee fracture Subjective Information Pt was not available at time of visit. Pt is on NPO from midnight for possibel surgery today. Pt was on CCHO6-gm diet . Per EMR, PO intake 75-100%. Current Diet Order/ Nutrition Support NPO Pertinent Medications vit C, levemir, protonix, vancomycin Pertinent Labs 06/28 na 135, glucose 131 5/6 glucose 188 5/5 glucose 189, A1c 5.9 Nutritional Hx/Data Height 1.65 m Height (Calculated Centimeters) 165.1 Current Weight (lbs) 68.946 kg Weight (Calculated Kilograms) 68.9 Weight (Calculated Grams) 99086.0 [facility] Body Weight 125 Body Mass Index (BMI) 25.2 Weight Status Overweight GI Symptoms GI Symptoms None Last BM 5/6 Difficult in: None Skin Integrity/Comment: right knee swollen Current %PO Good (75-100%) Estimated Nutritional Goals BEE in Kcals: Using Current wt Calories/Kcals/Kg 25-27 Kcals Calculated 8440-1715 Protein: Using Current wt Protein g/k Protein Calculated 69 Fluid: ml 1587-1863ml (1ml/kcal) Nutritional Problem 1. Problem Problem altered nutrition related labs Etiology hx of DM Signs/Symptoms: glucose 131-189, A1c 5.9 Malnutrition Alert Protein-Calorie Malnutrition N/A Is there a minimum of two criteria No selected? Query Text:Check all the applicable criteria. A minimum of two criteria are recommended for diagnosis of either severe or non-severe malnutrition. Intervention/Recommendation Comments 1. Resume CCHO-60gm diet as needed 2. Monitor PO intake, wt, labs and skin integrity 3. F/U as moderate risk in 3-5 days, 07/01-07/03 Expected Outcomes/Goals Expected Outcomes/Goals 1. PO intake to meet at least 75% of nutritional needs. 2. Wt stability, skin to remain intact, labs to approach WNL.
[2017-07-02 13:06] LABS: AMPHETAMINE URINE NEGATIVE (NEGATIVE); BARBITURATES URINE POSITIVE (NEGATIVE); BENZODIAZEPINES QUAL URINE POSITIVE (NEGATIVE); CANNABINOID THC NEGATIVE (NEGATIVE); COCAINE METABOLITE QUAL URINE NEGATIVE (NEGATIVE); METHADONE URINE NEGATIVE (NEGATIVE); METHAMPHETAMINES QUAL URINE NEGATIVE (NEGATIVE); OPIATES (MORPHINE) QUAL. URINE POSITIVE (NEGATIVE); PHENCYCLIDINE (PCP) URINE NEGATIVE (NEGATIVE); TRICYCLICS (TCA) QUAL. URINE NEGATIVE (NEGATIVE)
[2017-07-02] MEDS ORDERED: Probiotic Screen MC PRN (13:16)
--- NOTE | 2017-07-02 13:24 | Diagnostic Imaging Report ---
CT scan of the brain without intravenous contrast HISTORY: Stroke, CVA, seizure. Total DLP equals 1035 CTDI equals 41.0 Axial sections were obtained from the base of the skull to the vertex. There is enlargement of the ventricular system along with prominence of cerebral sulci and subarachnoid cisterns reflecting atrophy. Hypodensity is noted throughout the supratentorial and periventricular white matter regions without mass effect. The findings may be associated with chronic small vessel ischemic disease. Focal hypodensities seen in the left basal ganglia region with volume loss. Changes consistent with an old lacunar infarct. No acute intracerebral hemorrhage. Again, no mass effect or shift of midline structures. No extra-axial masses or abnormal fluid collections. IMPRESSION: 1. No acute abnormalities 2. Cerebral atrophy 3. Findings consistent with old left basal ganglia lacunar infarct 4. Supratentorial white matter changes. Findings may be associated with chronic small vessel ischemic disease.
[2017-07-02] MEDS: D5-0.45NS 1,000 ML IV SCH (15:00)
[2017-07-02] MEDS: Lactulose 10 Gm/15 mL 30mL UDC PO SCH (17:01)
--- NOTE | 2017-07-02 22:34 | General Progress Note ---
Subjective - Review of Systems Service Date: 07/02/17 Subjective: Patient seen and examined awake but confused no distress noted. Afebrile No reported seizure Objective - Results Result Diagrams: 07/02/17 04:27 07/02/17 04:27 Recent Labs: Laboratory Last Values WBC 7.7 Th/cmm (4.8-10.8) 07/02/17 04:27 RBC 3.90 Mil/cmm (3.80-5.10) 07/02/17 04:27 Hgb 12.0 gm/dL (12-16) 07/02/17 04:27 Hct 35.5 % (41.0-60) L 07/02/17 04:27 MCV 91.1 fl (81-100) 07/02/17 04:27 MCH 30.9 pg (27.0-31.0) 07/02/17 04:27 MCHC Differential 33.9 pg (28.0-36.0) 07/02/17 04:27 RDW 12.9 % (11.5-20.0) 07/02/17 04:27 Plt Count 243 Th/cmm (150-400) 07/02/17 04:27 MPV 7.3 fl 07/02/17 04:27 Neutrophils % 63.0 % (40.0-80.0) 07/02/17 04:27 Lymphocytes % 24.2 % (20.0-50.0) 07/02/17 04:27 Monocytes % 6.6 % (2.0-10.0) 07/02/17 04:27 Eosinophils % 5.6 % (0.0-5.0) H 07/02/17 04:27 Basophils % 0.6 % (0.0-2.0) 07/02/17 04:27 PT 9.7 SECONDS (9.5-11.5) 06/28/17 05:20 INR 0.93 (0.5-1.4) 06/28/17 05:20 PTT (Actin FS) 22.1 SECONDS (26.0-38.0) L 06/27/17 14:12 Sodium 135 mEq/L (136-145) L 07/02/17 04:27 Potassium 3.7 mEq/L (3.5-5.1) 07/02/17 04:27 Chloride 102 mEq/L (98-107) 07/02/17 04:27 Carbon Dioxide 26.5 mEq/L (21.0-31.0) 07/02/17 04:27 Anion Gap 10.2 (7.0-16.0) 07/02/17 04:27 BUN 14 mg/dL (7-25) 07/02/17 04:27 Creatinine 0.6 mg/dL (0.6-1.2) 07/02/17 04:27 Est GFR ( Amer) > 60.0 ml/min (>90) 07/02/17 04:27 Est GFR (Non-Af Amer) > 60.0 ml/min 07/02/17 04:27 BUN/Creatinine Ratio 23.3 07/02/17 04:27 Glucose 152 mg/dL (70-105) H 07/02/17 04:27 POC Glucose 175 MG/DL (70 - 105) H 07/02/17 08:00 Hemoglobin A1c % 5.9 % (4.0-6.0) 06/26/17 13:45 Whole Bld Lactic Acid 1.22 mmol/L (0.60-1.99) 06/26/17 12:40 Calcium 9.3 mg/dL (8.6-10.3) 07/02/17 04:27 Total Bilirubin 0.5 mg/dL (0.3-1.0) 07/01/17 04:17 AST 23 U/L (13-39) 07/01/17 04:17 ALT 36 U/L (7-52) 07/01/17 04:17 Alkaline Phosphatase 344 U/L (34-104) H 07/01/17 04:17 Ammonia 93 umol/L (16-53) H 06/26/17 12:40 Troponin I < 0.01 ng/mL (0.01-0.05) L 06/26/17 12:40 Total Protein 6.6 gm/dL (6.0-8.3) 07/01/17 04:17 Albumin 3.6 gm/dL (3.7-5.3) L 07/01/17 04:17 Globulin 3.0 gm/dL 07/01/17 04:17 Albumin/Globulin Ratio 1.2 (1.0-1.8) 07/01/17 04:17 Urine Source CATH 07/01/17 10:30 Urine Color YELLOW 07/01/17 10:30 Urine Clarity TURBID (CLEAR) H 07/01/17 10:30 Urine pH 5.5 (4.6 - 8.0) 07/01/17 10:30 Ur Specific [place] 1.025 (1.005-1.030) 07/01/17 10:30 Urine Protein TRACE mg/dL (NEGATIVE) 07/01/17 10:30 Urine Glucose (UA) NEGATIVE mg/dL (NEGATIVE) 07/01/17 10:30 Urine Ketones NEGATIVE mg/dL (NEGATIVE) 07/01/17 10:30 Urine Blood TRACE (NEGATIVE) 07/01/17 10:30 Urine Nitrate NEGATIVE (NEGATIVE) 07/01/17 10:30 Urine Bilirubin NEGATIVE (NEGATIVE) 07/01/17 10:30 Urine Urobilinogen 0.2 E.U./dL (0.2 - 1.0) 07/01/17 10:30 Ur Leukocyte Esterase MODERATE (NEGATIVE) H 07/01/17 10:30 Urine RBC 0-2 /hpf (0-5) 07/01/17 10:30 Urine WBC 50-100 /hpf (0-5) H 07/01/17 10:30 Ur Epithelial Cells FEW /lpf (FEW) 07/01/17 10:30 Urine Bacteria MODERATE /hpf (NONE SEEN) H 07/01/17 10:30 Vancomycin Trough 9.8 ug/mL (5-10) 06/29/17 09:15 Urine Opiates Screen POSITIVE (NEGATIVE) H 07/01/17 10:30 Urine Methadone Screen NEGATIVE (NEGATIVE) 07/01/17 10:30 Ur Barbiturates Screen POSITIVE (NEGATIVE) H 07/01/17 10:30 Phenytoin 13.7 ug/ml (10.0-20.0) 07/02/17 04:27 Ur Tricyclics Screen NEGATIVE (NEGATIVE) 07/01/17 10:30 Ur Phencyclidine Scrn NEGATIVE (NEGATIVE) 07/01/17 10:30 Amphetamines Screen NEGATIVE (NEGATIVE) 07/01/17 10:30 U Methamphetamines Scrn NEGATIVE (NEGATIVE) 07/01/17 10:30 U Benzodiazepines Scrn POSITIVE (NEGATIVE) H 07/01/17 10:30 U Cocaine Metab Screen NEGATIVE (NEGATIVE) 07/01/17 10:30 U Cannabinoids Screen NEGATIVE (NEGATIVE) 07/01/17 10:30 Ethyl Alcohol < 10 mg/dL (0-10) 06/26/17 12:40 Serum Ketones NEGATIVE (NEGATIVE) 06/26/17 12:40 Blood Type O POSITIVE 06/30/17 08:30 Antibody Screen NEGATIVE 06/30/17 08:30 Crossmatch See Detail 06/30/17 08:30 - Physical Exam Vitals and I&O: Vital Signs Temp 97.6 F 07/02/17 19:00 Pulse 108 07/02/17 19:00 Resp 14 07/02/17 19:00 BP 140/47 07/02/17 19:00 Pulse Ox 98 07/02/17 19:00 Intake & Output 07/02/17 07/02/17 07/03/17 06:59 18:59 06:59 Intake Total 1104 954 Output Total 1525 1300 Balance -421 -346 Weight (lbs) 64.41 kg 64.892 kg Intake: Intake, IV Amount 1104 104 Cefepime 1 gm In Sodium 50 50 Chloride 0.9% 50 ml @ 100 mls/hr IV Q12HR [facility] Rx#: [id number] D5-0.45NS 1,000 ml @ 70 1000 mls/hr IV .[id number] [facility] Rx #:[id number] Phenytoin 200 mg In 54 54 Sodium Chloride 0.9% 50 ml @ 100 mls/hr IV Q12H [facility] Rx#:[id number] Oral 850 Output: Urine 1525 1300 Other: # Bowel Movements 0 Weight Source Bedscale Bedscale Active Medications: Current Medications Acetaminophen (Tylenol Extra Strength) 500 mg PO Q4HR PRN PRN Reason: Mild Pain or Fever >101 Stop: 08/25/17 16:52 Last Admin: 06/27/17 11:33 Dose: 500 mg Acetaminophen/Hydrocodone Bitart ([place] 5mg/325mg) 1 tab PO Q6H PRN PRN Reason: Pain (Moderate) Stop: 08/25/17 16:52 Last Admin: 07/02/17 01:40 Dose: 1 tab Ascorbic Acid (Vitamin C) 500 mg PO DAILY [facility] Stop: 08/26/17 08:59 Last Admin: 07/02/17 08:21 Dose: 500 mg Carvedilol (Coreg) 3.125 mg PO BID [facility] Stop: 08/25/17 16:59 Last Admin: 07/02/17 16:53 Dose: 3.125 mg Enoxaparin Sodium (Lovenox) 40 mg SUBQ DAILY [facility] Stop: 08/26/17 08:59 Last Admin: 07/02/17 08:22 Dose: 40 mg Glucagon (Glucagen) 1 mg IM PRN PRN PRN Reason: LOW BLOOD SUGAR Stop: 08/25/17 16:52 Cefepime HCl 1 gm/ Sodium (Chloride) 50 mls @ 100 mls/hr IV Q12HR [facility] Stop: 08/25/17 20:59 Last Admin: 07/02/17 21:03 Dose: 100 mls/hr Dextrose/Sodium Chloride (D5-0.45ns) 1,000 mls @ 70 mls/hr IV .[id number] [facility] Stop: 08/28/17 23:44 Last Admin: 07/02/17 15:00 Dose: 70 mls/hr Phenytoin 200 mg/ Sodium (Chloride) 54 mls @ 100 mls/hr IV Q12H [facility] Stop: 08/30/17 16:59 Last Infusion: 07/02/17 17:30 Dose: Infused Insulin Detemir (Levemir Insulin) 15 units SUBQ DAILY [facility] PRN Reason: Protocol Stop: 08/26/17 08:59 Last Admin: 07/02/17 08:05 Dose: 15 units Lactobacillus Rhamnosus (Culturelle 15b) 1 each PO DAILY [facility] Stop: 09/01/17 08:59 Lactulose (Cephulac) 30 gm PO BID [facility] Stop: 08/31/17 16:59 Last Admin: 07/02/17 17:01 Dose: 30 gm Lisinopril (Zestril) 5 mg PO DAILY [facility] Stop: 08/26/17 08:59 Last Admin: 07/02/17 08:21 Dose: 5 mg Lorazepam (Ativan) 1 mg IVP Q4HR PRN; Protocol PRN Reason: SEIZURES Stop: 08/30/17 00:55 Last Admin: 07/02/17 04:01 Dose: 1 mg Metoprolol Tartrate (Lopressor) 5 mg IV Q6H PRN PRN Reason: HR> 140 Stop: 08/30/17 00:56 Last Admin: 07/01/17 02:07 Dose: 5 mg Miscellaneous (Probiotic Screen) 1 ea MC PRN PRN PRN Reason: PROTOCOL Stop: 08/31/17 13:15 Morphine Sulfate (Morphine) 2 mg IVP Q4HR PRN PRN Reason: Pain (Moderate) Stop: 08/25/17 16:50 Last Admin: 07/02/17 13:41 Dose: 2 mg Mupirocin (Bactroban Oint) 1 appl NS BID [facility] Stop: 07/03/17 09:01 Last Admin: 07/02/17 17:01 Dose: 1 appl Pantoprazole Sodium (Protonix) 40 mg PO QDAC [facility] Stop: 08/26/17 07:29 Last Admin: 07/02/17 08:05 Dose: 40 mg Cardiovascular: Regular rate Lungs: Clear to auscultation Extremities: Pulses (normal), Other (Right knee immobilizer in place) Neurological: Other (sleepy) - Procedures Procedures: Procedures Procedure Code Date GROUP PSYCHOTHERAPY 93387 01/01/15 GROUP PSYCHOTHERAPY GZHZZZZ 01/01/15 OTHER GROUP THERAPY 94.44 11/05/14 Assessment/Plan - Assessment Assessment: Right distal Femur displaced fracture Seizure UTI DM II HTN Menta health disorder - Plan Plan: I discussed the case with DR CHAUDHARI ( ortho on board) and asked to get the surgery done VESNA. Per DR CHAUDHARI Unavaibility of OR today with some technical issue. Will do case on 07/05/17 around 3 pm. It has been difficult for the past two three days to get Operating room avaibility due to some technical issue per OR staff. I also discussed this case with DCP and Hospital [employer] DESK ATTENDANT ( ZULY ROBLES) and requested in patient can be transferred to [facility] or [facility] so we can get the surgery done sooner since patient been awaiting the surgery for the past 6 days. Per [employer] ATTENDANT he will talk to DR CHAUDHARI To confirm about the surgery on 07/05/17 . Continue current treatment. Nutritional Asmnt/Malnutr-PDOC - Dietary Evaluation Malnutrition Findings (Please click <Entered> for more info): Nutritional Asmnt/Malnutrition Start: 06/28/17 14: 16 Text: Status: Active Freq: Document 06/28/17 14:16 VINNIE (Rec: 06/28/17 14:32 VINNIE [email or web address]) Nutritional Asmnt/Malnutrition Patient General Information Nutritional Screening High Risk Diagnosis right knee swelling Pertinent Medical Hx/Surgical Hx CVA, DM, HTN, [id number], DJD, hip and left knee fracture Subjective Information Pt was not available at time of visit. Pt is on NPO from midnight for possibel surgery today. Pt was on CCHO6-gm diet . Per EMR, PO intake 75-100%. Current Diet Order/ Nutrition Support NPO Pertinent Medications vit C, levemir, protonix, vancomycin Pertinent Labs 06/28 na 135, glucose 131 5/6 glucose 188 5/5 glucose 189, A1c 5.9 Nutritional Hx/Data Height 1.65 m Height (Calculated Centimeters) 165.1 Current Weight (lbs) 68.946 kg Weight (Calculated Kilograms) 68.9 Weight (Calculated Grams) 68516.0 [place] Body Weight 125 Body Mass Index (BMI) 25.2 Weight Status Overweight GI Symptoms GI Symptoms None Last BM 5/6 Difficult in: None Skin Integrity/Comment: right knee swollen Current %PO Good (75-100%) Estimated Nutritional Goals BEE in Kcals: Using Current wt Calories/Kcals/Kg 25-27 Kcals Calculated 1697-9969 Protein: Using Current wt Protein g/k Protein Calculated 69 Fluid: ml 1587-1863ml (1ml/kcal) Nutritional Problem 1. Problem Problem altered nutrition related labs Etiology hx of DM Signs/Symptoms: glucose 131-189, A1c 5.9 Malnutrition Alert Protein-Calorie Malnutrition N/A Is there a minimum of two criteria No selected? Query Text:Check all the applicable criteria. A minimum of two criteria are recommended for diagnosis of either severe or non-severe malnutrition. Intervention/Recommendation Comments 1. Resume CCHO-60gm diet as needed 2. Monitor PO intake, wt, labs and skin integrity 3. F/U as moderate risk in 3-5 days, 07/01-07/03 Expected Outcomes/Goals Expected Outcomes/Goals 1. PO intake to meet at least 75% of nutritional needs. 2. Wt stability, skin to remain intact, labs to approach WNL.
[2017-07-03] MEDS: Morphine Sulfate 4 mg/mL 1mL Syr IVP PRN ×4 (02:13→17:43)
[2017-07-03 06:25] LABS: % BASOPHILS 0.8 % (0.0-2.0); % EOSINOPHILS 3.5 % (0.0-5.0); % LYMPHOCYTES 22.3 % (20.0-50.0); % MONOCYTES 6.6 % (2.0-10.0); % NEUTROPHILS 66.8 % (40.0-80.0); BASOPHILE ABSOLUTE 0.1 Th/cumm (0-0.2); EOSINOPHILE ABSOLUTE 0.3 Th/cmm (0.1-0.4); HEMATOCRIT 38.1 % (41.0-60); HEMOGLOBIN 12.8 gm/dL (12-16); LYMPHOCYTE ABSOLUTE 2.2 Th/cmm (1.5-3.0); MEAN CELL VOLUME 91.6 fl (81-100); MEAN CORPUSCULAR HEMOGLOBIN 30.7 pg (27.0-31.0); MEAN CORPUSCULAR HGB CONC 33.5 pg (28.0-36.0); MONOCYTE ABSOLUTE 0.6 Th/cmm (0.3-1.0); NEUTROPHILE ABSOLUTE 6.5 Th/cmm (1.8-8.0); PLATELET COUNT 248 Th/cmm (150-400); RED BLOOD COUNT 4.16 Mil/cmm (3.80-5.10); RED CELL DISTRIBUTION WIDTH 13.1 % (11.5-20.0); WHITE BLOOD COUNT 9.7 Th/cmm (4.8-10.8)
[2017-07-03 06:45] LABS: ANION GAP 11.8 (7.0-16.0); BUN - UREA NITROGEN 13 mg/dL (7-25); CALCIUM SERUM 9.6 mg/dL (8.6-10.3); CARBON DIOXIDE 28.2 mEq/L (21.0-31.0); CHLORIDE 102 mEq/L (98-107); CREATININE - SERUM 0.6 mg/dL (0.6-1.2); GFR AFRICAN-AMERICAN > 60.0 ml/min (>90); GFR NON AFRICAN-AMERICAN > 60.0 ml/min; GLUCOSE 138 mg/dL (70-105); PHENYTOIN 21.4 ug/ml (10.0-20.0); SODIUM SERUM 138 mEq/L (136-145)
[2017-07-03] MEDS: Pantoprazole 40 mg EC Tab PO SCH (06:57)
[2017-07-03] MEDS: Lactulose 10 Gm/15 mL 30mL UDC PO SCH ×2 (09:44→17:29)
[2017-07-03] MEDS: Multivitamin w/ Minerals Tab PO SCH (09:44)
[2017-07-03] MEDS: Lactobacillus Rhamnosus GG 15 Billion CFU CAP.SPRINK PO SCH (09:44)
[2017-07-03] MEDS: D5-0.45NS 1,000 ML IV SCH (09:45)
[2017-07-03] MEDS: Insulin Detemir 100 units/mL 10mL Vial SUBQ SCH (09:49)
[2017-07-03] MEDS: Enoxaparin 40 mg/0.4 mL 0.4mL Syr SUBQ SCH (10:00)
[2017-07-03] MEDS: Cefepime 1 GM in Sodium Chloride 0.9% 50 ML IV SCH ×2 (12:02→20:45)
--- NOTE | 2017-07-03 23:22 | Infectious Disease Prog Note ---
Infectious Disease Subjective - Review of Systems Service Date: 07/03/17 Subjective: No fever, no chills. Infectious Disease Objective - Results Result Diagrams: 07/03/17 05:48 07/03/17 05:48 Recent Labs: Laboratory Last Values WBC 9.7 Th/cmm (4.8-10.8) 07/03/17 05:48 RBC 4.16 Mil/cmm (3.80-5.10) 07/03/17 05:48 Hgb 12.8 gm/dL (12-16) 07/03/17 05:48 Hct 38.1 % (41.0-60) L 07/03/17 05:48 MCV 91.6 fl (81-100) 07/03/17 05:48 MCH 30.7 pg (27.0-31.0) 07/03/17 05:48 MCHC Differential 33.5 pg (28.0-36.0) 07/03/17 05:48 RDW 13.1 % (11.5-20.0) 07/03/17 05:48 Plt Count 248 Th/cmm (150-400) 07/03/17 05:48 MPV 8.0 fl 07/03/17 05:48 Neutrophils % 66.8 % (40.0-80.0) 07/03/17 05:48 Lymphocytes % 22.3 % (20.0-50.0) 07/03/17 05:48 Monocytes % 6.6 % (2.0-10.0) 07/03/17 05:48 Eosinophils % 3.5 % (0.0-5.0) 07/03/17 05:48 Basophils % 0.8 % (0.0-2.0) 07/03/17 05:48 PT 9.7 SECONDS (9.5-11.5) 06/28/17 05:20 INR 0.93 (0.5-1.4) 06/28/17 05:20 PTT (Actin FS) 22.1 SECONDS (26.0-38.0) L 06/27/17 14:12 Sodium 138 mEq/L (136-145) 07/03/17 05:48 Potassium 4.0 mEq/L (3.5-5.1) 07/03/17 05:48 Chloride 102 mEq/L (98-107) 07/03/17 05:48 Carbon Dioxide 28.2 mEq/L (21.0-31.0) 07/03/17 05:48 Anion Gap 11.8 (7.0-16.0) 07/03/17 05:48 BUN 13 mg/dL (7-25) 07/03/17 05:48 Creatinine 0.6 mg/dL (0.6-1.2) 07/03/17 05:48 Est GFR ( Amer) > 60.0 ml/min (>90) 07/03/17 05:48 Est GFR (Non-Af Amer) > 60.0 ml/min 07/03/17 05:48 BUN/Creatinine Ratio 21.7 07/03/17 05:48 Glucose 138 mg/dL (70-105) H 07/03/17 05:48 POC Glucose 219 MG/DL (70 - 105) H 07/03/17 09:37 Hemoglobin A1c % 5.9 % (4.0-6.0) 06/26/17 13:45 Whole Bld Lactic Acid 1.22 mmol/L (0.60-1.99) 06/26/17 12:40 Calcium 9.6 mg/dL (8.6-10.3) 07/03/17 05:48 Total Bilirubin 0.5 mg/dL (0.3-1.0) 07/01/17 04:17 AST 23 U/L (13-39) 07/01/17 04:17 ALT 36 U/L (7-52) 07/01/17 04:17 Alkaline Phosphatase 344 U/L (34-104) H 07/01/17 04:17 Ammonia 93 umol/L (16-53) H 06/26/17 12:40 Troponin I < 0.01 ng/mL (0.01-0.05) L 06/26/17 12:40 Total Protein 6.6 gm/dL (6.0-8.3) 07/01/17 04:17 Albumin 3.6 gm/dL (3.7-5.3) L 07/01/17 04:17 Globulin 3.0 gm/dL 07/01/17 04:17 Albumin/Globulin Ratio 1.2 (1.0-1.8) 07/01/17 04:17 Urine Source CATH 07/01/17 10:30 Urine Color YELLOW 07/01/17 10:30 Urine Clarity TURBID (CLEAR) H 07/01/17 10:30 Urine pH 5.5 (4.6 - 8.0) 07/01/17 10:30 Ur Specific [place] 1.025 (1.005-1.030) 07/01/17 10:30 Urine Protein TRACE mg/dL (NEGATIVE) 07/01/17 10:30 Urine Glucose (UA) NEGATIVE mg/dL (NEGATIVE) 07/01/17 10:30 Urine Ketones NEGATIVE mg/dL (NEGATIVE) 07/01/17 10:30 Urine Blood TRACE (NEGATIVE) 07/01/17 10:30 Urine Nitrate NEGATIVE (NEGATIVE) 07/01/17 10:30 Urine Bilirubin NEGATIVE (NEGATIVE) 07/01/17 10:30 Urine Urobilinogen 0.2 E.U./dL (0.2 - 1.0) 07/01/17 10:30 Ur Leukocyte Esterase MODERATE (NEGATIVE) H 07/01/17 10:30 Urine RBC 0-2 /hpf (0-5) 07/01/17 10:30 Urine WBC 50-100 /hpf (0-5) H 07/01/17 10:30 Ur Epithelial Cells FEW /lpf (FEW) 07/01/17 10:30 Urine Bacteria MODERATE /hpf (NONE SEEN) H 07/01/17 10:30 Vancomycin Trough 9.8 ug/mL (5-10) 06/29/17 09:15 Urine Opiates Screen POSITIVE (NEGATIVE) H 07/01/17 10:30 Urine Methadone Screen NEGATIVE (NEGATIVE) 07/01/17 10:30 Ur Barbiturates Screen POSITIVE (NEGATIVE) H 07/01/17 10:30 Phenytoin 21.4 ug/ml (10.0-20.0) H 07/03/17 05:48 Ur Tricyclics Screen NEGATIVE (NEGATIVE) 07/01/17 10:30 Ur Phencyclidine Scrn NEGATIVE (NEGATIVE) 07/01/17 10:30 Amphetamines Screen NEGATIVE (NEGATIVE) 07/01/17 10:30 U Methamphetamines Scrn NEGATIVE (NEGATIVE) 07/01/17 10:30 U Benzodiazepines Scrn POSITIVE (NEGATIVE) H 07/01/17 10:30 U Cocaine Metab Screen NEGATIVE (NEGATIVE) 07/01/17 10:30 U Cannabinoids Screen NEGATIVE (NEGATIVE) 07/01/17 10:30 Ethyl Alcohol < 10 mg/dL (0-10) 06/26/17 12:40 Serum Ketones NEGATIVE (NEGATIVE) 06/26/17 12:40 Blood Type O POSITIVE 06/30/17 08:30 Antibody Screen NEGATIVE 06/30/17 08:30 Crossmatch See Detail 06/30/17 08:30 - Physical Exam Vitals and I&O: Vital Signs Temp 99.8 F 07/03/17 20:00 Pulse 96 07/03/17 21:00 Resp 22 07/03/17 21:00 BP 104/56 07/03/17 21:00 Pulse Ox 93 07/03/17 21:00 Intake & Output 07/03/17 07/03/17 07/04/17 06:59 18:59 06:59 Intake Total 1164 50 654 Output Total 650 1960 Balance 514 50 -1306 Weight (lbs) 63.503 kg 63.503 kg Intake: Intake, IV Amount 1104 50 54 Cefepime 1 gm In Sodium 50 50 Chloride 0.9% 50 ml @ 100 mls/hr IV Q12HR [facility] Rx#: [id number] D5-0.45NS 1,000 ml @ 70 1000 mls/hr IV .[id number] [facility] Rx #:[id number] Phenytoin 200 mg In 54 54 Sodium Chloride 0.9% 50 ml @ 100 mls/hr IV Q12H [facility] Rx#:[id number] Oral 60 600 Output: Urine 600 1960 Stool 50 Other: # Bowel Movements 1 Stool Characteristics Brown Weight Source Patient stated Bedscale Active Medications: Current Medications Acetaminophen (Tylenol Extra Strength) 500 mg PO Q4HR PRN PRN Reason: Mild Pain or Fever >101 Stop: 08/25/17 16:52 Last Admin: 06/27/17 11:33 Dose: 500 mg Acetaminophen/Hydrocodone Bitart ([place] 5mg/325mg) 1 tab PO Q6H PRN PRN Reason: Pain (Moderate) Stop: 08/25/17 16:52 Last Admin: 07/02/17 01:40 Dose: 1 tab Ascorbic Acid (Vitamin C) 500 mg PO DAILY [facility] Stop: 08/26/17 08:59 Last Admin: 07/03/17 09:44 Dose: 500 mg Carvedilol (Coreg) 3.125 mg PO BID [facility] Stop: 08/25/17 16:59 Last Admin: 07/03/17 17:23 Dose: 3.125 mg Enoxaparin Sodium (Lovenox) 40 mg SUBQ DAILY JOHN Stop: 08/26/17 08:59 Last Admin: 07/03/17 10:00 Dose: 40 mg Glucagon (Glucagen) 1 mg IM PRN PRN PRN Reason: LOW BLOOD SUGAR Stop: 08/25/17 16:52 Cefepime HCl 1 gm/ Sodium (Chloride) 50 mls @ 100 mls/hr IV Q12HR JOHN Stop: 08/25/17 20:59 Last Admin: 07/03/17 20:45 Dose: 100 mls/hr Dextrose/Sodium Chloride (D5-0.45ns) 1,000 mls @ 70 mls/hr IV .[id number] [facility] Stop: 08/28/17 23:44 Last Admin: 07/03/17 09:45 Dose: 70 mls/hr Phenytoin 200 mg/ Sodium (Chloride) 54 mls @ 100 mls/hr IV Q12H [facility] Stop: 08/30/17 16:59 Last Infusion: 07/03/17 19:13 Dose: Infused Insulin Detemir (Levemir Insulin) 15 units SUBQ DAILY JOHN PRN Reason: Protocol Stop: 08/26/17 08:59 Last Admin: 07/03/17 09:49 Dose: 15 units Lactobacillus Rhamnosus (Culturelle 15b) 1 each PO DAILY JOHN Stop: 09/01/17 08:59 Last Admin: 07/03/17 09:44 Dose: 1 each Lactulose (Cephulac) 30 gm PO BID JOHN Stop: 08/31/17 16:59 Last Admin: 07/03/17 17:29 Dose: 30 gm Lisinopril (Zestril) 5 mg PO DAILY JOHN Stop: 08/26/17 08:59 Last Admin: 07/03/17 09:43 Dose: 5 mg Lorazepam (Ativan) 1 mg IVP Q4HR PRN; Protocol PRN Reason: SEIZURES Stop: 08/30/17 00:55 Last Admin: 07/03/17 06:12 Dose: 1 mg Metoprolol Tartrate (Lopressor) 5 mg IV Q6H PRN PRN Reason: HR> 140 Stop: 08/30/17 00:56 Last Admin: 07/01/17 02:07 Dose: 5 mg Miscellaneous (Probiotic Screen) 1 ea MC PRN PRN PRN Reason: PROTOCOL Stop: 08/31/17 13:15 Morphine Sulfate (Morphine) 2 mg IVP Q4HR PRN PRN Reason: Pain (Moderate) Stop: 08/25/17 16:50 Last Admin: 07/03/17 17:43 Dose: 2 mg Pantoprazole Sodium (Protonix) 40 mg PO QDAC JOHN Stop: 08/26/17 07:29 Last Admin: 07/03/17 06:57 Dose: 40 mg - Procedures Procedures: Procedures Procedure Code Date GROUP PSYCHOTHERAPY 44206 01/01/15 GROUP PSYCHOTHERAPY GZHZZZZ 01/01/15 OTHER GROUP THERAPY 94.44 11/05/14 Infectious Disease Assmt/Plan - Assessment Assessment: 1. Swelling of the right knee likely reactive versus septic arthritis. periprosthetic fracture. 2. Fracture of distal right femur. 3. Diabetes mellitus type 2. 4. Hypertension. 5. Hyperlipidemia. 6. UTI. 7. TKR of right knee. 8. breaktrough seizures. - Plan Plan: Will continue same treatment. . Nutritional Asmnt/Malnutr-PDOC - Dietary Evaluation Malnutrition Findings (Please click <Entered> for more info): Nutritional Asmnt/Malnutrition Start: 06/28/17 14: 16 Text: Status: Complete Freq: Document 06/28/17 14:16 LCMADIE (Rec: 06/28/17 14:32 [email or web address] [email or web address]) Nutritional Asmnt/Malnutrition Patient General Information Nutritional Screening High Risk Diagnosis right knee swelling Pertinent Medical Hx/Surgical Hx CVA, DM, HTN, [id number], DJD, hip and left knee fracture Subjective Information Pt was not available at time of visit. Pt is on NPO from midnight for possibel surgery today. Pt was on CCHO6-gm diet . Per EMR, PO intake 75-100%. Current Diet Order/ Nutrition Support NPO Pertinent Medications vit C, levemir, protonix, vancomycin Pertinent Labs 06/28 na 135, glucose 131 5/6 glucose 188 5/5 glucose 189, A1c 5.9 Nutritional Hx/Data Height 1.65 m Height (Calculated Centimeters) 165.1 Current Weight (lbs) 68.946 kg Weight (Calculated Kilograms) 68.9 Weight (Calculated Grams) 55509.0 [place] Body Weight 125 Body Mass Index (BMI) 25.2 Weight Status Overweight GI Symptoms GI Symptoms None Last BM 5/6 Difficult in: None Skin Integrity/Comment: right knee swollen Current %PO Good (75-100%) Estimated Nutritional Goals BEE in Kcals: Using Current wt Calories/Kcals/Kg 25-27 Kcals Calculated 3579-8277 Protein: Using Current wt Protein g/k Protein Calculated 69 Fluid: ml 1587-1863ml (1ml/kcal) Nutritional Problem 1. Problem Problem altered nutrition related labs Etiology hx of DM Signs/Symptoms: glucose 131-189, A1c 5.9 Malnutrition Alert Protein-Calorie Malnutrition N/A Is there a minimum of two criteria No selected? Query Text:Check all the applicable criteria. A minimum of two criteria are recommended for diagnosis of either severe or non-severe malnutrition. Intervention/Recommendation Comments 1. Resume CCHO-60gm diet as needed 2. Monitor PO intake, wt, labs and skin integrity 3. F/U as moderate risk in 3-5 days, 07/01-07/03 Expected Outcomes/Goals Expected Outcomes/Goals 1. PO intake to meet at least 75% of nutritional needs. 2. Wt stability, skin to remain intact, labs to approach WNL.
--- NOTE | 2017-07-03 23:45 | Progress Notes ---
DATE: 07/03/2017 SUBJECTIVE: The patient seen and examined on behalf of Dr. Jc. The patient is currently in ICU. The patient is seen by orthopedic surgeon. This patient is scheduled to have a surgery on Wednesday. The patient currently denies any chest pain, shortness of breath, palpitation, or dizziness. No cardiac arrhythmia reported on monitor. PHYSICAL EXAMINATION: VITAL SIGNS: Temperature 98.6, pulse is 74, respiratory rate is 18, and blood pressure is 140/47. HEENT: No facial asymmetry. NECK: Supple. No JVD. HEART: Regular. CHEST: Lung equal in expansion. No wheezing, no crackles. ABDOMEN: Soft. No guarding, no rigidity. Bowel sounds are present. No palpable mass. EXTREMITIES: No edema. Peripheral pulses are +1. Left calf tenderness noted. CLINICAL IMPRESSION: 1. Right distal femur fracture. 2. Hypertension. 3. Seizure disorder. 4. Dysphagia. 5. Hyperlipidemia. 6. Psychotic disorder. PLAN: 1. Transfer this patient to telemetry unit. 2. Orthopedic care. 3. Pain management. 4. Antihypertensive medicine. 5. Seizure medication. 6. Seizure precaution. 7. Psych followup. 8. Follow lab. 9. Follow consult recommendation. 10. Care plan reviewed and discussed with staff. JOB# [id number]
[2017-07-04] MEDS: D5-0.45NS 1,000 ML IV SCH ×2 (00:47→14:46)
[2017-07-04] MEDS: Morphine Sulfate 4 mg/mL 1mL Syr IVP PRN ×5 (01:44→22:37)
[2017-07-04] MEDS: Pantoprazole 40 mg EC Tab PO SCH (07:00)
[2017-07-04] MEDS: Lactulose 10 Gm/15 mL 30mL UDC PO SCH ×2 (09:33→17:00)
[2017-07-04] MEDS: Multivitamin w/ Minerals Tab PO SCH (09:34)
[2017-07-04] MEDS: Lactobacillus Rhamnosus GG 15 Billion CFU CAP.SPRINK PO SCH (09:35)
[2017-07-04] MEDS: Enoxaparin 40 mg/0.4 mL 0.4mL Syr SUBQ SCH (09:36)
[2017-07-04] MEDS: Insulin Detemir 100 units/mL 10mL Vial SUBQ SCH (09:44)
--- NOTE | 2017-07-04 14:38 | General Progress Note ---
Subjective - Review of Systems Events since last encounter: patient is seen and examined. No new events. patient is going to surgery. Subjective: patient is seen and examined. No new events. Objective - Results Result Diagrams: 07/03/17 05:48 07/03/17 05:48 Recent Labs: Laboratory Last Values WBC 9.7 Th/cmm (4.8-10.8) 07/03/17 05:48 RBC 4.16 Mil/cmm (3.80-5.10) 07/03/17 05:48 Hgb 12.8 gm/dL (12-16) 07/03/17 05:48 Hct 38.1 % (41.0-60) L 07/03/17 05:48 MCV 91.6 fl (81-100) 07/03/17 05:48 MCH 30.7 pg (27.0-31.0) 07/03/17 05:48 MCHC Differential 33.5 pg (28.0-36.0) 07/03/17 05:48 RDW 13.1 % (11.5-20.0) 07/03/17 05:48 Plt Count 248 Th/cmm (150-400) 07/03/17 05:48 MPV 8.0 fl 07/03/17 05:48 Neutrophils % 66.8 % (40.0-80.0) 07/03/17 05:48 Lymphocytes % 22.3 % (20.0-50.0) 07/03/17 05:48 Monocytes % 6.6 % (2.0-10.0) 07/03/17 05:48 Eosinophils % 3.5 % (0.0-5.0) 07/03/17 05:48 Basophils % 0.8 % (0.0-2.0) 07/03/17 05:48 PT 9.7 SECONDS (9.5-11.5) 06/28/17 05:20 INR 0.93 (0.5-1.4) 06/28/17 05:20 PTT (Actin FS) 22.1 SECONDS (26.0-38.0) L 06/27/17 14:12 Sodium 138 mEq/L (136-145) 07/03/17 05:48 Potassium 4.0 mEq/L (3.5-5.1) 07/03/17 05:48 Chloride 102 mEq/L (98-107) 07/03/17 05:48 Carbon Dioxide 28.2 mEq/L (21.0-31.0) 07/03/17 05:48 Anion Gap 11.8 (7.0-16.0) 07/03/17 05:48 BUN 13 mg/dL (7-25) 07/03/17 05:48 Creatinine 0.6 mg/dL (0.6-1.2) 07/03/17 05:48 Est GFR ( Amer) > 60.0 ml/min (>90) 07/03/17 05:48 Est GFR (Non-Af Amer) > 60.0 ml/min 07/03/17 05:48 BUN/Creatinine Ratio 21.7 07/03/17 05:48 Glucose 138 mg/dL (70-105) H 07/03/17 05:48 POC Glucose 156 MG/DL (70 - 105) H 07/04/17 09:42 Hemoglobin A1c % 5.9 % (4.0-6.0) 06/26/17 13:45 Whole Bld Lactic Acid 1.22 mmol/L (0.60-1.99) 06/26/17 12:40 Calcium 9.6 mg/dL (8.6-10.3) 07/03/17 05:48 Total Bilirubin 0.5 mg/dL (0.3-1.0) 07/01/17 04:17 AST 23 U/L (13-39) 07/01/17 04:17 ALT 36 U/L (7-52) 07/01/17 04:17 Alkaline Phosphatase 344 U/L (34-104) H 07/01/17 04:17 Ammonia 93 umol/L (16-53) H 06/26/17 12:40 Troponin I < 0.01 ng/mL (0.01-0.05) L 06/26/17 12:40 Total Protein 6.6 gm/dL (6.0-8.3) 07/01/17 04:17 Albumin 3.6 gm/dL (3.7-5.3) L 07/01/17 04:17 Globulin 3.0 gm/dL 07/01/17 04:17 Albumin/Globulin Ratio 1.2 (1.0-1.8) 07/01/17 04:17 Urine Source CATH 07/01/17 10:30 Urine Color YELLOW 07/01/17 10:30 Urine Clarity TURBID (CLEAR) H 07/01/17 10:30 Urine pH 5.5 (4.6 - 8.0) 07/01/17 10:30 Ur Specific [place] 1.025 (1.005-1.030) 07/01/17 10:30 Urine Protein TRACE mg/dL (NEGATIVE) 07/01/17 10:30 Urine Glucose (UA) NEGATIVE mg/dL (NEGATIVE) 07/01/17 10:30 Urine Ketones NEGATIVE mg/dL (NEGATIVE) 07/01/17 10:30 Urine Blood TRACE (NEGATIVE) 07/01/17 10:30 Urine Nitrate NEGATIVE (NEGATIVE) 07/01/17 10:30 Urine Bilirubin NEGATIVE (NEGATIVE) 07/01/17 10:30 Urine Urobilinogen 0.2 E.U./dL (0.2 - 1.0) 07/01/17 10:30 Ur Leukocyte Esterase MODERATE (NEGATIVE) H 07/01/17 10:30 Urine RBC 0-2 /hpf (0-5) 07/01/17 10:30 Urine WBC 50-100 /hpf (0-5) H 07/01/17 10:30 Ur Epithelial Cells FEW /lpf (FEW) 07/01/17 10:30 Urine Bacteria MODERATE /hpf (NONE SEEN) H 07/01/17 10:30 Vancomycin Trough 9.8 ug/mL (5-10) 06/29/17 09:15 Urine Opiates Screen POSITIVE (NEGATIVE) H 07/01/17 10:30 Urine Methadone Screen NEGATIVE (NEGATIVE) 07/01/17 10:30 Ur Barbiturates Screen POSITIVE (NEGATIVE) H 07/01/17 10:30 Phenytoin 21.4 ug/ml (10.0-20.0) H 07/03/17 05:48 Ur Tricyclics Screen NEGATIVE (NEGATIVE) 07/01/17 10:30 Ur Phencyclidine Scrn NEGATIVE (NEGATIVE) 07/01/17 10:30 Amphetamines Screen NEGATIVE (NEGATIVE) 07/01/17 10:30 U Methamphetamines Scrn NEGATIVE (NEGATIVE) 07/01/17 10:30 U Benzodiazepines Scrn POSITIVE (NEGATIVE) H 07/01/17 10:30 U Cocaine Metab Screen NEGATIVE (NEGATIVE) 07/01/17 10:30 U Cannabinoids Screen NEGATIVE (NEGATIVE) 07/01/17 10:30 Ethyl Alcohol < 10 mg/dL (0-10) 06/26/17 12:40 Serum Ketones NEGATIVE (NEGATIVE) 06/26/17 12:40 Blood Type O POSITIVE 06/30/17 08:30 Antibody Screen NEGATIVE 06/30/17 08:30 Crossmatch See Detail 06/30/17 08:30 - Physical Exam Vitals and I&O: Vital Signs Temp 97.9 F 07/04/17 08:00 Pulse 92 07/04/17 11:00 Resp 14 07/04/17 11:00 BP 121/63 07/04/17 10:00 Pulse Ox 98 07/04/17 11:00 Intake & Output 07/03/17 07/04/17 07/04/17 18:59 06:59 18:59 Intake Total 50 1804 Output Total 2810 Balance 50 -1006 Weight (lbs) 68.946 kg Intake: Intake, IV Amount 50 1054 Cefepime 1 gm In Sodium 50 Chloride 0.9% 50 ml @ 100 mls/hr IV Q12HR [facility] Rx#: [id number] D5-0.45NS 1,000 ml @ 70 1000 mls/hr IV .[id number] [facility] Rx #:[id number] Phenytoin 200 mg In 54 Sodium Chloride 0.9% 50 ml @ 100 mls/hr IV Q12H [facility] Rx#:[id number] Oral 750 Output: Urine 2810 Other: # Bowel Movements 1 Weight Source Bedscale Active Medications: Current Medications Acetaminophen (Tylenol Extra Strength) 500 mg PO Q4HR PRN PRN Reason: Mild Pain or Fever >101 Stop: 08/25/17 16:52 Last Admin: 06/27/17 11:33 Dose: 500 mg Ascorbic Acid (Vitamin C) 500 mg PO DAILY [facility] Stop: 08/26/17 08:59 Last Admin: 07/04/17 09:35 Dose: 500 mg Carvedilol (Coreg) 3.125 mg PO BID [facility] Stop: 08/25/17 16:59 Last Admin: 07/04/17 09:35 Dose: 3.125 mg Enoxaparin Sodium (Lovenox) 40 mg SUBQ DAILY [facility] Stop: 08/26/17 08:59 Last Admin: 07/04/17 09:36 Dose: 40 mg Glucagon (Glucagen) 1 mg IM PRN PRN PRN Reason: LOW BLOOD SUGAR Stop: 08/25/17 16:52 Dextrose/Sodium Chloride (D5-0.45ns) 1,000 mls @ 70 mls/hr IV .[id number] [facility] Stop: 08/28/17 23:44 Last Admin: 07/04/17 00:47 Dose: 70 mls/hr Phenytoin 200 mg/ Sodium (Chloride) 54 mls @ 100 mls/hr IV Q12H [facility] Stop: 08/30/17 16:59 Last Admin: 07/04/17 05:05 Dose: 100 mls/hr Insulin Detemir (Levemir Insulin) 15 units SUBQ DAILY JOHN PRN Reason: Protocol Stop: 08/26/17 08:59 Last Admin: 07/04/17 09:44 Dose: 15 units Lactobacillus Rhamnosus (Culturelle 15b) 1 each PO DAILY [facility] Stop: 09/01/17 08:59 Last Admin: 07/04/17 09:35 Dose: 1 each Lactulose (Cephulac) 30 gm PO BID [facility] Stop: 08/31/17 16:59 Last Admin: 07/04/17 09:33 Dose: 30 gm Lisinopril (Zestril) 5 mg PO DAILY [facility] Stop: 08/26/17 08:59 Last Admin: 07/04/17 09:34 Dose: 5 mg Lorazepam (Ativan) 1 mg IVP Q4HR PRN; Protocol PRN Reason: SEIZURES Stop: 08/30/17 00:55 Last Admin: 07/03/17 06:12 Dose: 1 mg Metoprolol Tartrate (Lopressor) 5 mg IV Q6H PRN PRN Reason: HR> 140 Stop: 08/30/17 00:56 Last Admin: 07/01/17 02:07 Dose: 5 mg Miscellaneous (Probiotic Screen) 1 ea MC PRN PRN PRN Reason: PROTOCOL Stop: 08/31/17 13:15 Morphine Sulfate (Morphine) 2 mg IVP Q4HR PRN PRN Reason: Pain (Moderate) Stop: 08/25/17 16:50 Last Admin: 07/04/17 14:33 Dose: 2 mg Pantoprazole Sodium (Protonix) 40 mg PO QDAC [facility] Stop: 08/26/17 07:29 Last Admin: 07/04/17 07:00 Dose: 40 mg General: Alert, No acute distress HEENT: Atraumatic, PERRLA, EOMI Neck: Supple Cardiovascular: Regular rate, Normal S1, Normal S2 Lungs: Clear to auscultation Abdomen: Bowel sounds, Soft Extremities: Pulses (normal), Other (Right knee immobilizer in place) Neurological: Other (sleepy) - Procedures Procedures: Procedures Procedure Code Date GROUP PSYCHOTHERAPY 97773 01/01/15 GROUP PSYCHOTHERAPY GZHZZZZ 01/01/15 OTHER GROUP THERAPY 94.44 11/05/14 Assessment/Plan - Assessment Assessment: Fracture Femur. Psych disorder. DJD. Diabetes HTN. Debility. - Plan Plan: Oxygen. Pain control. Monitor glucose and vitals Continue current care. Discussed with Staff. Nutritional Asmnt/Malnutr-PDOC - Dietary Evaluation Malnutrition Findings (Please click <Entered> for more info): Nutritional Asmnt/Malnutrition Start: 06/28/17 14: 16 Text: Status: Complete Freq: Document 06/28/17 14:16 HEN (Rec: 06/28/17 14:32 [email or web address] Nutritional Asmnt/Malnutrition Patient General Information Nutritional Screening High Risk Diagnosis right knee swelling Pertinent Medical Hx/Surgical Hx CVA, DM, HTN, [id number], DJD, hip and left knee fracture Subjective Information Pt was not available at time of visit. Pt is on NPO from midnight for possibel surgery today. Pt was on CCHO6-gm diet . Per EMR, PO intake 75-100%. Current Diet Order/ Nutrition Support NPO Pertinent Medications vit C, levemir, protonix, vancomycin Pertinent Labs 06/28 na 135, glucose 131 5/6 glucose 188 5/5 glucose 189, A1c 5.9 Nutritional Hx/Data Height 1.65 m Height (Calculated Centimeters) 165.1 Current Weight (lbs) 68.946 kg Weight (Calculated Kilograms) 68.9 Weight (Calculated Grams) 69166.0 [place] Body Weight 125 Body Mass Index (BMI) 25.2 Weight Status Overweight GI Symptoms GI Symptoms None Last BM 5/6 Difficult in: None Skin Integrity/Comment: right knee swollen Current %PO Good (75-100%) Estimated Nutritional Goals BEE in Kcals: Using Current wt Calories/Kcals/Kg 25-27 Kcals Calculated 0189-1211 Protein: Using Current wt Protein g/k Protein Calculated 69 Fluid: ml 1587-1863ml (1ml/kcal) Nutritional Problem 1. Problem Problem altered nutrition related labs Etiology hx of DM Signs/Symptoms: glucose 131-189, A1c 5.9 Malnutrition Alert Protein-Calorie Malnutrition N/A Is there a minimum of two criteria No selected? Query Text:Check all the applicable criteria. A minimum of two criteria are recommended for diagnosis of either severe or non-severe malnutrition. Intervention/Recommendation Comments 1. Resume CCHO-60gm diet as needed 2. Monitor PO intake, wt, labs and skin integrity 3. F/U as moderate risk in 3-5 days, 07/01-07/03 Expected Outcomes/Goals Expected Outcomes/Goals 1. PO intake to meet at least 75% of nutritional needs. 2. Wt stability, skin to remain intact, labs to approach WNL.
[2017-07-04] MEDS: Acetaminophen 500 MG TAB PO PRN (17:30)
[2017-07-04] MEDS: Metoprolol tartrate 1 mg/ml 5mL Amp IV PRN (20:56)
[2017-07-05 04:48] LABS: % EOSINOPHILS 6.7 % (0.0-5.0); % LYMPHOCYTES 27.2 % (20.0-50.0); % MONOCYTES 8.2 % (2.0-10.0); % NEUTROPHILS 57.9 % (40.0-80.0); EOSINOPHILE ABSOLUTE 0.6 Th/cmm (0.1-0.4); HEMATOCRIT 34.7 % (41.0-60); HEMOGLOBIN 11.7 gm/dL (12-16); LYMPHOCYTE ABSOLUTE 2.3 Th/cmm (1.5-3.0); MEAN CELL VOLUME 91.2 fl (81-100); MEAN CORPUSCULAR HEMOGLOBIN 30.8 pg (27.0-31.0); MEAN CORPUSCULAR HGB CONC 33.8 pg (28.0-36.0); MEAN PLATELET VOLUME 8.4 fl; MONOCYTE ABSOLUTE 0.7 Th/cmm (0.3-1.0); NEUTROPHILE ABSOLUTE 4.7 Th/cmm (1.8-8.0); PLATELET COUNT 154 Th/cmm (150-400); RED BLOOD COUNT 3.81 Mil/cmm (3.80-5.10); WHITE BLOOD COUNT 8.3 Th/cmm (4.8-10.8)
[2017-07-05 05:03] LABS: URINE MICROSCOPIC INDICATED? YES; URINE SOURCE FOLEY PORT
[2017-07-05 05:07] LABS: URINE BILIRUBIN NEGATIVE (NEGATIVE); URINE BLOOD TRACE (NEGATIVE); URINE GLUCOSE (UA) NEGATIVE (NEGATIVE); URINE KETONE NEGATIVE (NEGATIVE); URINE LEUKOCYTE ESTERASE MODERATE (NEGATIVE); URINE NITRATE NEGATIVE (NEGATIVE); URINE PROTEIN NEGATIVE (NEGATIVE); URINE UROBILINOGEN 0.2 E.U./dL (0.2 - 1.0)
[2017-07-05 05:11] LABS: URINE CLARITY HAZY (CLEAR); URINE COLOR YELLOW
[2017-07-05] MEDS: D5-0.45NS 1,000 ML IV SCH ×2 (05:12→09:17)
[2017-07-05 05:13] LABS: URINE RBC 0-2 /hpf (0-5)
[2017-07-05 05:14] LABS: URINE BACTERIA FEW /hpf (NONE SEEN); URINE EPITHELIAL CELLS FEW /lpf (FEW); URINE YEAST MODERATE /hpf (NONE SEEN)
[2017-07-05 05:15] LABS: ALB/GLOB RATIO 1.2 (1.0-1.8); ALBUMIN 3.4 gm/dL (3.7-5.3); ALKALINE PHOSPHATASE 254 U/L (34-104); ANION GAP 11.6 (7.0-16.0); BILIRUBIN,TOTAL 0.4 mg/dL (0.3-1.0); BUN - UREA NITROGEN 9 mg/dL (7-25); CALCIUM SERUM 9.3 mg/dL (8.6-10.3); CHLORIDE 103 mEq/L (98-107); CREATININE - SERUM 0.5 mg/dL (0.6-1.2); GFR AFRICAN-AMERICAN > 60.0 ml/min (>90); GFR NON AFRICAN-AMERICAN > 60.0 ml/min; GLUCOSE 130 mg/dL (70-105); POTASSIUM SERUM 3.6 mEq/L (3.5-5.1); SGOT 15 U/L (13-39); SGPT/ALT 21 U/L (7-52); SODIUM SERUM 136 mEq/L (136-145); TOTAL PROTEIN,SERUM 6.3 gm/dL (6.0-8.3)
[2017-07-05 07:25] LABS: INR 0.94 (0.5-1.4); PROTHROMBIN TIME (TEST) 9.8 SECONDS (9.5-11.5)
[2017-07-05] MEDS: Morphine Sulfate 4 mg/mL 1mL Syr IV PRN ×2 (09:14→15:20)
[2017-07-05] MEDS: Multivitamin w/ Minerals Tab PO SCH (09:18)
[2017-07-05] MEDS: Lactulose 10 Gm/15 mL 30mL UDC PO SCH ×2 (09:18→17:27)
[2017-07-05] MEDS: Lactobacillus Rhamnosus GG 15 Billion CFU CAP.SPRINK PO SCH (09:18)
[2017-07-05] MEDS: Pantoprazole 40 mg EC Tab PO SCH (09:19)
[2017-07-05] MEDS: Insulin Detemir 100 units/mL 10mL Vial SUBQ SCH (10:26)
--- NOTE | 2017-07-05 11:00 | Infectious Disease Prog Note ---
Infectious Disease Subjective - Review of Systems Service Date: 07/05/17 Subjective: No fever, no chills. Infectious Disease Objective - Results Result Diagrams: 07/05/17 04:05 07/05/17 04:05 Recent Labs: Laboratory Last Values WBC 8.3 Th/cmm (4.8-10.8) 07/05/17 04:05 RBC 3.81 Mil/cmm (3.80-5.10) 07/05/17 04:05 Hgb 11.7 gm/dL (12-16) L 07/05/17 04:05 Hct 34.7 % (41.0-60) L 07/05/17 04:05 MCV 91.2 fl (81-100) 07/05/17 04:05 MCH 30.8 pg (27.0-31.0) 07/05/17 04:05 MCHC Differential 33.8 pg (28.0-36.0) 07/05/17 04:05 RDW 13.0 % (11.5-20.0) 07/05/17 04:05 Plt Count 154 Th/cmm (150-400) 07/05/17 04:05 MPV 8.4 fl 07/05/17 04:05 Neutrophils % 57.9 % (40.0-80.0) 07/05/17 04:05 Lymphocytes % 27.2 % (20.0-50.0) 07/05/17 04:05 Monocytes % 8.2 % (2.0-10.0) 07/05/17 04:05 Eosinophils % 6.7 % (0.0-5.0) H 07/05/17 04:05 Basophils % 0.0 % (0.0-2.0) 07/05/17 04:05 PT 9.8 SECONDS (9.5-11.5) 07/05/17 06:25 INR 0.94 (0.5-1.4) 07/05/17 06:25 PTT (Actin FS) 23.5 SECONDS (26.0-38.0) L 07/05/17 06:25 Sodium 136 mEq/L (136-145) 07/05/17 04:05 Potassium 3.6 mEq/L (3.5-5.1) 07/05/17 04:05 Chloride 103 mEq/L (98-107) 07/05/17 04:05 Carbon Dioxide 25.0 mEq/L (21.0-31.0) 07/05/17 04:05 Anion Gap 11.6 (7.0-16.0) 07/05/17 04:05 BUN 9 mg/dL (7-25) 07/05/17 04:05 Creatinine 0.5 mg/dL (0.6-1.2) L 07/05/17 04:05 Est GFR ( Amer) > 60.0 ml/min (>90) 07/05/17 04:05 Est GFR (Non-Af Amer) > 60.0 ml/min 07/05/17 04:05 BUN/Creatinine Ratio 18.0 07/05/17 04:05 Glucose 130 mg/dL (70-105) H 07/05/17 04:05 POC Glucose 171 MG/DL (70 - 105) H 07/05/17 10:23 Hemoglobin A1c % 5.9 % (4.0-6.0) 06/26/17 13:45 Whole Bld Lactic Acid 1.22 mmol/L (0.60-1.99) 06/26/17 12:40 Calcium 9.3 mg/dL (8.6-10.3) 07/05/17 04:05 Total Bilirubin 0.4 mg/dL (0.3-1.0) 07/05/17 04:05 AST 15 U/L (13-39) 07/05/17 04:05 ALT 21 U/L (7-52) 07/05/17 04:05 Alkaline Phosphatase 254 U/L (34-104) H 07/05/17 04:05 Ammonia 93 umol/L (16-53) H 06/26/17 12:40 Troponin I < 0.01 ng/mL (0.01-0.05) L 06/26/17 12:40 Total Protein 6.3 gm/dL (6.0-8.3) 07/05/17 04:05 Albumin 3.4 gm/dL (3.7-5.3) L 07/05/17 04:05 Globulin 2.9 gm/dL 07/05/17 04:05 Albumin/Globulin Ratio 1.2 (1.0-1.8) 07/05/17 04:05 Urine Source [place] 07/05/17 04:05 Urine Color YELLOW 07/05/17 04:05 Urine Clarity HAZY (CLEAR) 07/05/17 04:05 Urine pH 6.0 (4.6 - 8.0) 07/05/17 04:05 Ur Specific [place] 1.010 (1.005-1.030) 07/05/17 04:05 Urine Protein NEGATIVE mg/dL (NEGATIVE) 07/05/17 04:05 Urine Glucose (UA) NEGATIVE mg/dL (NEGATIVE) 07/05/17 04:05 Urine Ketones NEGATIVE mg/dL (NEGATIVE) 07/05/17 04:05 Urine Blood TRACE (NEGATIVE) 07/05/17 04:05 Urine Nitrate NEGATIVE (NEGATIVE) 07/05/17 04:05 Urine Bilirubin NEGATIVE (NEGATIVE) 07/05/17 04:05 Urine Urobilinogen 0.2 E.U./dL (0.2 - 1.0) 07/05/17 04:05 Ur Leukocyte Esterase MODERATE (NEGATIVE) H 07/05/17 04:05 Urine RBC 0-2 /hpf (0-5) 07/05/17 04:05 Urine WBC 10-25 /hpf (0-5) H 07/05/17 04:05 Ur Epithelial Cells FEW /lpf (FEW) 07/05/17 04:05 Urine Bacteria FEW /hpf (NONE SEEN) 07/05/17 04:05 Urine Yeast MODERATE /hpf (NONE SEEN) H 07/05/17 04:05 Vancomycin Trough 9.8 ug/mL (5-10) 06/29/17 09:15 Urine Opiates Screen POSITIVE (NEGATIVE) H 07/01/17 10:30 Urine Methadone Screen NEGATIVE (NEGATIVE) 07/01/17 10:30 Ur Barbiturates Screen POSITIVE (NEGATIVE) H 07/01/17 10:30 Phenytoin 21.4 ug/ml (10.0-20.0) H 07/03/17 05:48 Ur Tricyclics Screen NEGATIVE (NEGATIVE) 07/01/17 10:30 Ur Phencyclidine Scrn NEGATIVE (NEGATIVE) 07/01/17 10:30 Amphetamines Screen NEGATIVE (NEGATIVE) 07/01/17 10:30 U Methamphetamines Scrn NEGATIVE (NEGATIVE) 07/01/17 10:30 U Benzodiazepines Scrn POSITIVE (NEGATIVE) H 07/01/17 10:30 U Cocaine Metab Screen NEGATIVE (NEGATIVE) 07/01/17 10:30 U Cannabinoids Screen NEGATIVE (NEGATIVE) 07/01/17 10:30 Ethyl Alcohol < 10 mg/dL (0-10) 06/26/17 12:40 Serum Ketones NEGATIVE (NEGATIVE) 06/26/17 12:40 Blood Type O POSITIVE 07/04/17 23:55 Antibody Screen NEGATIVE 07/04/17 23:55 Crossmatch See Detail 07/04/17 23:55 - Physical Exam Vitals and I&O: Vital Signs Temp 99.0 F 07/05/17 04:00 Pulse 94 07/05/17 09:35 Resp 18 07/05/17 08:02 BP 141/77 07/05/17 09:35 Pulse Ox 100 07/05/17 08:02 Intake & Output 07/04/17 07/05/17 07/05/17 18:59 06:59 18:59 Intake Total 1513.544 4751 285.833 Output Total 900 1150 Balance 478.833 204 285.833 Weight (lbs) 68.946 kg 65.771 kg Intake: Intake, IV Amount 492.210 0322 285.833 D5-0.45NS 1,000 ml @ 70 768.481 7032 285.833 mls/hr IV .[id number] [facility] Rx #:[id number] Phenytoin 200 mg In 54 Sodium Chloride 0.9% 50 ml @ 100 mls/hr IV Q12H [facility] Rx#:[id number] Oral 400 300 Output: Urine 900 1150 Other: # Bowel Movements 0 Weight Source Bedscale Bedscale Active Medications: Current Medications Acetaminophen (Tylenol Extra Strength) 500 mg PO Q4HR PRN PRN Reason: Mild Pain or Fever >101 Stop: 08/25/17 16:52 Last Admin: 07/04/17 17:30 Dose: 500 mg Ascorbic Acid (Vitamin C) 500 mg PO DAILY [facility] Stop: 08/26/17 08:59 Last Admin: 07/05/17 09:19 Dose: Not Given Carvedilol (Coreg) 3.125 mg PO BID [facility] Stop: 08/25/17 16:59 Last Admin: 07/05/17 09:18 Dose: Not Given Glucagon (Glucagen) 1 mg IM PRN PRN PRN Reason: LOW BLOOD SUGAR Stop: 08/25/17 16:52 Dextrose/Sodium Chloride (D5-0.45ns) 1,000 mls @ 70 mls/hr IV .[id number] [facility] Stop: 08/28/17 23:44 Last Admin: 07/05/17 09:17 Dose: 70 mls/hr Phenytoin 200 mg/ Sodium (Chloride) 54 mls @ 100 mls/hr IV Q12H [facility] Stop: 08/30/17 16:59 Last Admin: 07/05/17 05:00 Dose: 100 mls/hr Insulin Detemir (Levemir Insulin) 15 units SUBQ DAILY [facility] PRN Reason: Protocol Stop: 08/26/17 08:59 Last Admin: 07/05/17 10:26 Dose: Not Given Lactobacillus Rhamnosus (Culturelle 15b) 1 each PO DAILY [facility] Stop: 09/01/17 08:59 Last Admin: 07/05/17 09:18 Dose: Not Given Lactulose (Cephulac) 30 gm PO BID [facility] Stop: 08/31/17 16:59 Last Admin: 07/05/17 09:18 Dose: Not Given Lisinopril (Zestril) 5 mg PO DAILY [facility] Stop: 08/26/17 08:59 Last Admin: 07/05/17 09:35 Dose: Not Given Lorazepam (Ativan) 1 mg IVP Q4HR PRN; Protocol PRN Reason: SEIZURES Stop: 08/30/17 00:55 Last Admin: 07/04/17 21:21 Dose: 1 mg Lorazepam (Ativan) 1 mg IVP Q4HR PRN; Protocol PRN Reason: Agitation Stop: 09/03/17 08:09 Metoprolol Tartrate (Lopressor) 5 mg IV Q6H PRN PRN Reason: HR> 140 Stop: 08/30/17 00:56 Last Admin: 07/01/17 02:07 Dose: 5 mg Miscellaneous (Probiotic Screen) 1 ea MC PRN PRN PRN Reason: PROTOCOL Stop: 08/31/17 13:15 Morphine Sulfate (Morphine) 2 mg IV Q4HR PRN PRN Reason: Pain (Moderate) Stop: 09/03/17 08:12 Last Admin: 07/05/17 09:14 Dose: 2 mg Pantoprazole Sodium (Protonix) 40 mg PO QDAC [facility] Stop: 08/26/17 07:29 Last Admin: 07/05/17 09:19 Dose: Not Given - Procedures Procedures: Procedures Procedure Code Date GROUP PSYCHOTHERAPY 46421 01/01/15 GROUP PSYCHOTHERAPY GZHZZZZ 01/01/15 OTHER GROUP THERAPY 94.44 11/05/14 Infectious Disease Assmt/Plan - Assessment Assessment: 1. Swelling of the right knee likely reactive versus septic arthritis. periprosthetic fracture. 2. Fracture of distal right femur. 3. Diabetes mellitus type 2. 4. Hypertension. 5. Hyperlipidemia. 6. UTI. 7. TKR of right knee. 8. breaktrough seizures. - Plan Plan: Will continue same treatment. . Nutritional Asmnt/Malnutr-PDOC - Dietary Evaluation Malnutrition Findings (Please click <Entered> for more info): Nutritional Asmnt/Malnutrition Start: 06/28/17 14: 16 Text: Status: Complete Freq: Document 06/28/17 14:16 VINNIE (Rec: 06/28/17 14:32 VINNIE [place] [id number]) Nutritional Asmnt/Malnutrition Patient General Information Nutritional Screening High Risk Diagnosis right knee swelling Pertinent Medical Hx/Surgical Hx CVA, DM, HTN, [id number], DJD, hip and left knee fracture Subjective Information Pt was not available at time of visit. Pt is on NPO from midnight for possibel surgery today. Pt was on CCHO6-gm diet . Per EMR, PO intake 75-100%. Current Diet Order/ Nutrition Support NPO Pertinent Medications vit C, levemir, protonix, vancomycin Pertinent Labs 7 na 135, glucose 131 5/6 glucose 188 5/5 glucose 189, A1c 5.9 Nutritional Hx/Data Height 1.65 m Height (Calculated Centimeters) 165.1 Current Weight (lbs) 68.946 kg Weight (Calculated Kilograms) 68.9 Weight (Calculated Grams) 17218.0 [place] Body Weight 125 Body Mass Index (BMI) 25.2 Weight Status Overweight GI Symptoms GI Symptoms None Last BM 5/6 Difficult in: None Skin Integrity/Comment: right knee swollen Current %PO Good (75-100%) Estimated Nutritional Goals BEE in Kcals: Using Current wt Calories/Kcals/Kg 25-27 Kcals Calculated 5612-5096 Protein: Using Current wt Protein g/k Protein Calculated 69 Fluid: ml 1587-1863ml (1ml/kcal) Nutritional Problem 1. Problem Problem altered nutrition related labs Etiology hx of DM Signs/Symptoms: glucose 131-189, A1c 5.9 Malnutrition Alert Protein-Calorie Malnutrition N/A Is there a minimum of two criteria No selected? Query Text:Check all the applicable criteria. A minimum of two criteria are recommended for diagnosis of either severe or non-severe malnutrition. Intervention/Recommendation Comments 1. Resume CCHO-60gm diet as needed 2. Monitor PO intake, wt, labs and skin integrity 3. F/U as moderate risk in 3-5 days, 07/01-07/03 Expected Outcomes/Goals Expected Outcomes/Goals 1. PO intake to meet at least 75% of nutritional needs. 2. Wt stability, skin to remain intact, labs to approach WNL.
[2017-07-05] MEDS ORDERED: Propofol **SURGERY USE ONLY** 20 ML IV ONE (15:27)
[2017-07-05] MEDS ORDERED: HYDROmorphone 2 mg/mL 1mL Vial ONE (15:47)
[2017-07-05] MEDS ORDERED: Neostigmine 10mg/10mL Vial ONE (16:25)
[2017-07-05] MEDS ORDERED: Naloxone 0.4 mg/mL 1mL Vial ONE (16:34)
[2017-07-05] MEDS ORDERED: Lactated Ringer 1,000 ML IV SCH (16:45)
[2017-07-05] MEDS ORDERED: HYDROmorphone 1 mg/mL 1mL Syr IVP PRN (16:45)
[2017-07-05] MEDS ORDERED: HYDROmorphone 1 mg/mL 1mL Syr ONE (16:52)
[2017-07-05] MEDS: INSULIN ASPART SLIDING SCALE 100 UNITS/ML UNIT SUBQ SCH (20:44)
--- NOTE | 2017-07-05 22:19 | General Progress Note ---
Subjective - Review of Systems Service Date: 07/05/17 Subjective: Patient seen and examined s/p attempted ORIF for right femur fracture Objective - Results Result Diagrams: 07/05/17 04:05 07/05/17 04:05 Recent Labs: Laboratory Last Values WBC 8.3 Th/cmm (4.8-10.8) 07/05/17 04:05 RBC 3.81 Mil/cmm (3.80-5.10) 07/05/17 04:05 Hgb 11.7 gm/dL (12-16) L 07/05/17 04:05 Hct 34.7 % (41.0-60) L 07/05/17 04:05 MCV 91.2 fl (81-100) 07/05/17 04:05 MCH 30.8 pg (27.0-31.0) 07/05/17 04:05 MCHC Differential 33.8 pg (28.0-36.0) 07/05/17 04:05 RDW 13.0 % (11.5-20.0) 07/05/17 04:05 Plt Count 154 Th/cmm (150-400) 07/05/17 04:05 MPV 8.4 fl 07/05/17 04:05 Neutrophils % 57.9 % (40.0-80.0) 07/05/17 04:05 Lymphocytes % 27.2 % (20.0-50.0) 07/05/17 04:05 Monocytes % 8.2 % (2.0-10.0) 07/05/17 04:05 Eosinophils % 6.7 % (0.0-5.0) H 07/05/17 04:05 Basophils % 0.0 % (0.0-2.0) 07/05/17 04:05 PT 9.8 SECONDS (9.5-11.5) 07/05/17 06:25 INR 0.94 (0.5-1.4) 07/05/17 06:25 PTT (Actin FS) 23.5 SECONDS (26.0-38.0) L 07/05/17 06:25 Sodium 136 mEq/L (136-145) 07/05/17 04:05 Potassium 3.6 mEq/L (3.5-5.1) 07/05/17 04:05 Chloride 103 mEq/L (98-107) 07/05/17 04:05 Carbon Dioxide 25.0 mEq/L (21.0-31.0) 07/05/17 04:05 Anion Gap 11.6 (7.0-16.0) 07/05/17 04:05 BUN 9 mg/dL (7-25) 07/05/17 04:05 Creatinine 0.5 mg/dL (0.6-1.2) L 07/05/17 04:05 Est GFR ( Amer) > 60.0 ml/min (>90) 07/05/17 04:05 Est GFR (Non-Af Amer) > 60.0 ml/min 07/05/17 04:05 BUN/Creatinine Ratio 18.0 07/05/17 04:05 Glucose 130 mg/dL (70-105) H 07/05/17 04:05 POC Glucose 137 MG/DL (70 - 105) H 07/05/17 20:40 Hemoglobin A1c % 5.9 % (4.0-6.0) 06/26/17 13:45 Whole Bld Lactic Acid 1.22 mmol/L (0.60-1.99) 06/26/17 12:40 Calcium 9.3 mg/dL (8.6-10.3) 07/05/17 04:05 Total Bilirubin 0.4 mg/dL (0.3-1.0) 07/05/17 04:05 AST 15 U/L (13-39) 07/05/17 04:05 ALT 21 U/L (7-52) 07/05/17 04:05 Alkaline Phosphatase 254 U/L (34-104) H 07/05/17 04:05 Ammonia 93 umol/L (16-53) H 06/26/17 12:40 Troponin I < 0.01 ng/mL (0.01-0.05) L 06/26/17 12:40 Total Protein 6.3 gm/dL (6.0-8.3) 07/05/17 04:05 Albumin 3.4 gm/dL (3.7-5.3) L 07/05/17 04:05 Globulin 2.9 gm/dL 07/05/17 04:05 Albumin/Globulin Ratio 1.2 (1.0-1.8) 07/05/17 04:05 Urine Source [place] 05/14/18 04:05 Urine Color YELLOW 07/05/17 04:05 Urine Clarity HAZY (CLEAR) 07/05/17 04:05 Urine pH 6.0 (4.6 - 8.0) 07/05/17 04:05 Ur Specific [place] 1.010 (1.005-1.030) 07/05/17 04:05 Urine Protein NEGATIVE mg/dL (NEGATIVE) 07/05/17 04:05 Urine Glucose (UA) NEGATIVE mg/dL (NEGATIVE) 07/05/17 04:05 Urine Ketones NEGATIVE mg/dL (NEGATIVE) 07/05/17 04:05 Urine Blood TRACE (NEGATIVE) 07/05/17 04:05 Urine Nitrate NEGATIVE (NEGATIVE) 07/05/17 04:05 Urine Bilirubin NEGATIVE (NEGATIVE) 07/05/17 04:05 Urine Urobilinogen 0.2 E.U./dL (0.2 - 1.0) 07/05/17 04:05 Ur Leukocyte Esterase MODERATE (NEGATIVE) H 07/05/17 04:05 Urine RBC 0-2 /hpf (0-5) 07/05/17 04:05 Urine WBC 10-25 /hpf (0-5) H 07/05/17 04:05 Ur Epithelial Cells FEW /lpf (FEW) 07/05/17 04:05 Urine Bacteria FEW /hpf (NONE SEEN) 07/05/17 04:05 Urine Yeast MODERATE /hpf (NONE SEEN) H 07/05/17 04:05 Vancomycin Trough 9.8 ug/mL (5-10) 06/29/17 09:15 Urine Opiates Screen POSITIVE (NEGATIVE) H 07/01/17 10:30 Urine Methadone Screen NEGATIVE (NEGATIVE) 07/01/17 10:30 Ur Barbiturates Screen POSITIVE (NEGATIVE) H 07/01/17 10:30 Phenytoin 21.4 ug/ml (10.0-20.0) H 07/03/17 05:48 Ur Tricyclics Screen NEGATIVE (NEGATIVE) 07/01/17 10:30 Ur Phencyclidine Scrn NEGATIVE (NEGATIVE) 07/01/17 10:30 Amphetamines Screen NEGATIVE (NEGATIVE) 07/01/17 10:30 U Methamphetamines Scrn NEGATIVE (NEGATIVE) 07/01/17 10:30 U Benzodiazepines Scrn POSITIVE (NEGATIVE) H 07/01/17 10:30 U Cocaine Metab Screen NEGATIVE (NEGATIVE) 07/01/17 10:30 U Cannabinoids Screen NEGATIVE (NEGATIVE) 07/01/17 10:30 Ethyl Alcohol < 10 mg/dL (0-10) 06/26/17 12:40 Serum Ketones NEGATIVE (NEGATIVE) 06/26/17 12:40 Blood Type O POSITIVE 07/04/17 23:55 Antibody Screen NEGATIVE 07/04/17 23:55 Crossmatch See Detail 07/04/17 23:55 - Physical Exam Vitals and I&O: Vital Signs Temp 98 F 07/05/17 20:00 Pulse 81 07/05/17 20:00 Resp 18 07/05/17 20:00 BP 119/72 07/05/17 20:00 Pulse Ox 96 07/05/17 20:00 Intake & Output 07/05/17 07/05/17 07/06/17 06:59 18:59 06:59 Intake Total 1408 385.833 Output Total 1150 300 Balance 258 85.833 Weight (lbs) 65.771 kg 65.771 kg Intake: Intake, IV Amount 1108 385.833 Cefepime 2 gm In Dextrose 100 5% 100 ml @ 100 mls/hr IV Q12H [facility] Rx#:[id number] D5-0.45NS 1,000 ml @ 70 1000 285.833 mls/hr IV .[id number] [facility] Rx #:[id number] Phenytoin 200 mg In 108 Sodium Chloride 0.9% 50 ml @ 100 mls/hr IV Q12H [facility] Rx#:[id number] Oral 300 Output: Urine 1150 300 Other: # Bowel Movements 0 1 Weight Source Bedscale Estimated Active Medications: Current Medications Acetaminophen (Tylenol Extra Strength) 500 mg PO Q4HR PRN PRN Reason: Mild Pain or Fever >101 Stop: 08/25/17 16:52 Last Admin: 07/04/17 17:30 Dose: 500 mg Ascorbic Acid (Vitamin C) 500 mg PO DAILY [facility] Stop: 08/26/17 08:59 Last Admin: 07/05/17 09:19 Dose: Not Given Carvedilol (Coreg) 3.125 mg PO BID [facility] Stop: 08/25/17 16:59 Last Admin: 07/05/17 17:27 Dose: Not Given Glucagon (Glucagen) 1 mg IM PRN PRN PRN Reason: LOW BLOOD SUGAR Stop: 08/25/17 16:52 Phenytoin 200 mg/ Sodium (Chloride) 54 mls @ 100 mls/hr IV Q12H [facility] Stop: 08/30/17 16:59 Last Admin: 07/05/17 18:31 Dose: 100 mls/hr Cefepime HCl 2 gm/ Dextrose 100 mls @ 100 mls/hr IV Q12H [facility] Stop: 09/03/17 11:59 Last Infusion: 07/05/17 14:15 Dose: Infused Vancomycin HCl 1 gm/ Sodium (Chloride) 250 mls @ 165 mls/hr IV Q12H [facility] Stop: 09/03/17 21:59 Last Admin: 07/05/17 22:02 Dose: 165 mls/hr Insulin Aspart (Novolog Insulin Sliding Scale) 0 units SUBQ ACHS [facility] PRN Reason: Protocol Stop: 09/03/17 20:59 Last Admin: 07/05/17 20:44 Dose: Not Given Insulin Detemir (Levemir Insulin) 15 units SUBQ DAILY [facility] PRN Reason: Protocol Stop: 08/26/17 08:59 Last Admin: 07/05/17 10:26 Dose: Not Given Lactobacillus Rhamnosus (Culturelle 15b) 1 each PO DAILY [facility] Stop: 09/01/17 08:59 Last Admin: 07/05/17 09:18 Dose: Not Given Lactulose (Cephulac) 30 gm PO BID [facility] Stop: 08/31/17 16:59 Last Admin: 07/05/17 17:27 Dose: Not Given Lisinopril (Zestril) 5 mg PO DAILY [facility] Stop: 08/26/17 08:59 Last Admin: 07/05/17 09:35 Dose: Not Given Lorazepam (Ativan) 1 mg IVP Q4HR PRN; Protocol PRN Reason: SEIZURES Stop: 08/30/17 00:55 Last Admin: 07/04/17 21:21 Dose: 1 mg Lorazepam (Ativan) 1 mg IVP Q4HR PRN; Protocol PRN Reason: Agitation Stop: 09/03/17 08:09 Metoprolol Tartrate (Lopressor) 5 mg IV Q6H PRN PRN Reason: HR> 140 Stop: 08/30/17 00:56 Last Admin: 07/01/17 02:07 Dose: 5 mg Miscellaneous (Probiotic Screen) 1 ea [facility] PRN PRN PRN Reason: PROTOCOL Stop: 08/31/17 13:15 Miscellaneous (Vancomycin Iv Per Pharmacy) 1 ea MC PRN [facility] Stop: 09/03/17 10:59 Morphine Sulfate (Morphine) 2 mg IV Q4HR PRN PRN Reason: Pain (Moderate) Stop: 09/03/17 08:12 Last Admin: 07/05/17 15:20 Dose: 2 mg Pantoprazole Sodium (Protonix) 40 mg PO QDAC [facility] Stop: 08/26/17 07:29 Last Admin: 07/05/17 09:19 Dose: Not Given General: No acute distress Cardiovascular: Regular rate Lungs: Clear to auscultation Abdomen: Soft Extremities: no Edema - Procedures Procedures: Procedures Procedure Code Date GROUP PSYCHOTHERAPY 24696 01/01/15 GROUP PSYCHOTHERAPY GZHZZZZ 01/01/15 OTHER GROUP THERAPY 94.44 11/05/14 Assessment/Plan - Assessment Assessment: Right distal Femur displaced fracture Seizure UTI DM II HTN Menta health disorder - Plan Plan: Case discussed with Ortho Per Ortho unable to do ORIF due to contracted limb. Recomended post splint Continue current treatment Plan of care discussed with nursing staff Nutritional Asmnt/Malnutr-PDOC - Dietary Evaluation Malnutrition Findings (Please click <Entered> for more info): Nutritional Asmnt/Malnutrition Start: 06/28/17 14: 16 Text: Status: Complete Freq: Document 06/28/17 14:16 LCMADIEG (Rec: 06/28/17 14:32 [email or web address] [id number]) Nutritional Asmnt/Malnutrition Patient General Information Nutritional Screening High Risk Diagnosis right knee swelling Pertinent Medical Hx/Surgical Hx CVA, DM, HTN, [id number], DJD, hip and left knee fracture Subjective Information Pt was not available at time of visit. Pt is on NPO from midnight for possibel surgery today. Pt was on CCHO6-gm diet . Per EMR, PO intake 75-100%. Current Diet Order/ Nutrition Support NPO Pertinent Medications vit C, levemir, protonix, vancomycin Pertinent Labs 5/7 na 135, glucose 131 5/6 glucose 188 5/5 glucose 189, A1c 5.9 Nutritional Hx/Data Height 1.65 m Height (Calculated Centimeters) 165.1 Current Weight (lbs) 68.946 kg Weight (Calculated Kilograms) 68.9 Weight (Calculated Grams) 80147.0 [place] Body Weight 125 Body Mass Index (BMI) 25.2 Weight Status Overweight GI Symptoms GI Symptoms None Last BM 5/6 Difficult in: None Skin Integrity/Comment: right knee swollen Current %PO Good (75-100%) Estimated Nutritional Goals BEE in Kcals: Using Current wt Calories/Kcals/Kg 25-27 Kcals Calculated 0548-2764 Protein: Using Current wt Protein g/k Protein Calculated 69 Fluid: ml 1587-1863ml (1ml/kcal) Nutritional Problem 1. Problem Problem altered nutrition related labs Etiology hx of DM Signs/Symptoms: glucose 131-189, A1c 5.9 Malnutrition Alert Protein-Calorie Malnutrition N/A Is there a minimum of two criteria No selected? Query Text:Check all the applicable criteria. A minimum of two criteria are recommended for diagnosis of either severe or non-severe malnutrition. Intervention/Recommendation Comments 1. Resume CCHO-60gm diet as needed 2. Monitor PO intake, wt, labs and skin integrity 3. F/U as moderate risk in 3-5 days, 07/01-07/03 Expected Outcomes/Goals Expected Outcomes/Goals 1. PO intake to meet at least 75% of nutritional needs. 2. Wt stability, skin to remain intact, labs to approach WNL.
--- NOTE | 2017-07-06 00:56 | Operative Report ---
DATE OF SURGERY: 07/05/2017 PREOPERATIVE DIAGNOSIS: Fractured distal right femur, closed, displaced. POSTOPERATIVE DIAGNOSES: 1. Displaced fracture, distal right femur. 2. Stiffness of both knee joints. 3. Restricted motion of hip joints. SURGEON: Dandy Fall M.D. CH[employer]DER LOOM CONTROL: Angie Miranda M.D. ANESTHESIOLOGIST: Dr. Juan. ANESTHESIA: General. PROCEDURE: 1. Closed treatment with manipulation of fracture distal right femoral shaft. 2. Examination under anesthesia of both knees and both hips. DESCRIPTION OF PROCEDURE: Following satisfactory anesthesia by Dr. Juan, the patient was positioned supine on the operative table. The traction apparatus was removed from the right leg. It was noted that the left knee remained flexed and would not fully straighten out. The left knee was in a fairly fixed position of 45-50 degrees of flexion. Hips had flexion contractures, lacking full extension by 30 degrees. The right knee and lower femur were examined. The C-arm was brought into position and the fracture of the distal shaft observed. I attempted to reduce or manipulate the fracture with traction and [id number] pressure and the fracture was far enough into the healing stages that it did not budge the knee joint. The artificial knee joint was noted to be stiff allowing very little movement. The bone inside of the femoral component of the total knee prosthesis was resolving or resorbed and there did not appear to be adequate bone stock distally to apply a fixation plate. It was decided to treat this fracture closed with traction and later application of posterior splint and allow the fracture to heal keeping the knee in the present degree of flexion, matching the opposite knee. Surgery to attempt to reduce this fracture and apply fixation would be extremely arduous on this patient and the end result would be a stiff knee anyway, which she already has. Again, the fixation distally would not be sufficient because of resorption of the bone under the prosthesis. Anesthesia was reversed and she was awakened and taken to recovery room in good condition. JOB# [id number]
[2017-07-06] MEDS: INSULIN ASPART SLIDING SCALE 100 UNITS/ML UNIT SUBQ SCH ×3 (07:28→22:23)
[2017-07-06] MEDS: Pantoprazole 40 mg EC Tab PO SCH (07:29)
--- NOTE | 2017-07-06 07:47 | Diagnostic Imaging Report ---
Multiple fluoroscopic images demonstrate comminuted distal femoral fracture. A total knee arthroplasty is also seen. Total fluoroscopic time was 15 seconds. Please refer to the surgeons report for complete details.
[2017-07-06] MEDS: Multivitamin w/ Minerals Tab PO SCH (09:16)
[2017-07-06] MEDS: Lactobacillus Rhamnosus GG 15 Billion CFU CAP.SPRINK PO SCH (09:16)
[2017-07-06] MEDS: Lactulose 10 Gm/15 mL 30mL UDC PO SCH ×2 (09:17→16:35)
[2017-07-06] MEDS: Insulin Detemir 100 units/mL 10mL Vial SUBQ SCH (09:21)
--- NOTE | 2017-07-06 13:17 | Infectious Disease Prog Note ---
Infectious Disease Subjective - Review of Systems Service Date: 07/06/17 Events since last encounter: Right knee surgery was performed yesterday. Subjective: No fever, no chills. Infectious Disease Objective - Results Result Diagrams: 07/05/17 04:05 07/05/17 04:05 Recent Labs: Laboratory Last Values WBC 8.3 Th/cmm (4.8-10.8) 07/05/17 04:05 RBC 3.81 Mil/cmm (3.80-5.10) 07/05/17 04:05 Hgb 11.7 gm/dL (12-16) L 07/05/17 04:05 Hct 34.7 % (41.0-60) L 07/05/17 04:05 MCV 91.2 fl (81-100) 07/05/17 04:05 MCH 30.8 pg (27.0-31.0) 07/05/17 04:05 MCHC Differential 33.8 pg (28.0-36.0) 07/05/17 04:05 RDW 13.0 % (11.5-20.0) 07/05/17 04:05 Plt Count 154 Th/cmm (150-400) 07/05/17 04:05 MPV 8.4 fl 07/05/17 04:05 Neutrophils % 57.9 % (40.0-80.0) 07/05/17 04:05 Lymphocytes % 27.2 % (20.0-50.0) 07/05/17 04:05 Monocytes % 8.2 % (2.0-10.0) 07/05/17 04:05 Eosinophils % 6.7 % (0.0-5.0) H 07/05/17 04:05 Basophils % 0.0 % (0.0-2.0) 07/05/17 04:05 PT 9.8 SECONDS (9.5-11.5) 07/05/17 06:25 INR 0.94 (0.5-1.4) 07/05/17 06:25 PTT (Actin FS) 23.5 SECONDS (26.0-38.0) L 07/05/17 06:25 Sodium 136 mEq/L (136-145) 07/05/17 04:05 Potassium 3.6 mEq/L (3.5-5.1) 07/05/17 04:05 Chloride 103 mEq/L (98-107) 07/05/17 04:05 Carbon Dioxide 25.0 mEq/L (21.0-31.0) 07/05/17 04:05 Anion Gap 11.6 (7.0-16.0) 07/05/17 04:05 BUN 9 mg/dL (7-25) 07/05/17 04:05 Creatinine 0.5 mg/dL (0.6-1.2) L 07/05/17 04:05 Est GFR ( Amer) > 60.0 ml/min (>90) 07/05/17 04:05 Est GFR (Non-Af Amer) > 60.0 ml/min 07/05/17 04:05 BUN/Creatinine Ratio 18.0 07/05/17 04:05 Glucose 130 mg/dL (70-105) H 07/05/17 04:05 POC Glucose 195 MG/DL (70 - 105) H 07/06/17 12:09 Hemoglobin A1c % 5.9 % (4.0-6.0) 06/26/17 13:45 Whole Bld Lactic Acid 1.22 mmol/L (0.60-1.99) 06/26/17 12:40 Calcium 9.3 mg/dL (8.6-10.3) 07/05/17 04:05 Total Bilirubin 0.4 mg/dL (0.3-1.0) 07/05/17 04:05 AST 15 U/L (13-39) 07/05/17 04:05 ALT 21 U/L (7-52) 07/05/17 04:05 Alkaline Phosphatase 254 U/L (34-104) H 07/05/17 04:05 Ammonia 93 umol/L (16-53) H 06/26/17 12:40 Troponin I < 0.01 ng/mL (0.01-0.05) L 06/26/17 12:40 Total Protein 6.3 gm/dL (6.0-8.3) 07/05/17 04:05 Albumin 3.4 gm/dL (3.7-5.3) L 07/05/17 04:05 Globulin 2.9 gm/dL 07/05/17 04:05 Albumin/Globulin Ratio 1.2 (1.0-1.8) 07/05/17 04:05 Urine Source [place] 07/05/17 04:05 Urine Color YELLOW 07/05/17 04:05 Urine Clarity HAZY (CLEAR) 07/05/17 04:05 Urine pH 6.0 (4.6 - 8.0) 07/05/17 04:05 Ur Specific [place] 1.010 (1.005-1.030) 07/05/17 04:05 Urine Protein NEGATIVE mg/dL (NEGATIVE) 07/05/17 04:05 Urine Glucose (UA) NEGATIVE mg/dL (NEGATIVE) 07/05/17 04:05 Urine Ketones NEGATIVE mg/dL (NEGATIVE) 07/05/17 04:05 Urine Blood TRACE (NEGATIVE) 07/05/17 04:05 Urine Nitrate NEGATIVE (NEGATIVE) 07/05/17 04:05 Urine Bilirubin NEGATIVE (NEGATIVE) 07/05/17 04:05 Urine Urobilinogen 0.2 E.U./dL (0.2 - 1.0) 07/05/17 04:05 Ur Leukocyte Esterase MODERATE (NEGATIVE) H 07/05/17 04:05 Urine RBC 0-2 /hpf (0-5) 07/05/17 04:05 Urine WBC 10-25 /hpf (0-5) H 07/05/17 04:05 Ur Epithelial Cells FEW /lpf (FEW) 07/05/17 04:05 Urine Bacteria FEW /hpf (NONE SEEN) 07/05/17 04:05 Urine Yeast MODERATE /hpf (NONE SEEN) H 07/05/17 04:05 Vancomycin Trough 11.2 ug/mL (5-10) H 07/06/17 09:00 Urine Opiates Screen POSITIVE (NEGATIVE) H 07/01/17 10:30 Urine Methadone Screen NEGATIVE (NEGATIVE) 07/01/17 10:30 Ur Barbiturates Screen POSITIVE (NEGATIVE) H 07/01/17 10:30 Phenytoin 21.4 ug/ml (10.0-20.0) H 07/03/17 05:48 Ur Tricyclics Screen NEGATIVE (NEGATIVE) 07/01/17 10:30 Ur Phencyclidine Scrn NEGATIVE (NEGATIVE) 07/01/17 10:30 Amphetamines Screen NEGATIVE (NEGATIVE) 07/01/17 10:30 U Methamphetamines Scrn NEGATIVE (NEGATIVE) 07/01/17 10:30 U Benzodiazepines Scrn POSITIVE (NEGATIVE) H 07/01/17 10:30 U Cocaine Metab Screen NEGATIVE (NEGATIVE) 07/01/17 10:30 U Cannabinoids Screen NEGATIVE (NEGATIVE) 07/01/17 10:30 Ethyl Alcohol < 10 mg/dL (0-10) 06/26/17 12:40 Serum Ketones NEGATIVE (NEGATIVE) 06/26/17 12:40 Blood Type O POSITIVE 07/04/17 23:55 Antibody Screen NEGATIVE 07/04/17 23:55 Crossmatch See Detail 07/04/17 23:55 - Physical Exam Vitals and I&O: Vital Signs Temp 97.1 F 07/06/17 10:35 Pulse 105 07/06/17 10:35 Resp 18 07/06/17 10:35 BP 151/75 07/06/17 10:35 Pulse Ox 98 07/06/17 10:35 Intake & Output 07/05/17 07/06/17 07/06/17 18:59 06:59 18:59 Intake Total 385.833 508 Output Total 300 1650 Balance 85.833 -1142 Weight (lbs) 65.771 kg 63.004 kg Intake: Intake, IV Amount 385.833 458 Cefepime 2 gm In Dextrose 100 100 5% 100 ml @ 100 mls/hr IV Q12H [facility] Rx#:[id number] D5-0.45NS 1,000 ml @ 70 285.833 mls/hr IV .[id number] [facility] Rx #:[id number] Phenytoin 200 mg In 108 Sodium Chloride 0.9% 50 ml @ 100 mls/hr IV Q12H [facility] Rx#:[id number] Vancomycin HCl 1 gm In 250 Sodium Chloride 0.9% 250 ml @ 165 mls/hr IV Q12H [facility] Rx#:[id number] Oral 50 Output: Urine 300 1650 Other: # Bowel Movements 1 Weight Source Estimated Estimated Active Medications: Current Medications Acetaminophen (Tylenol Extra Strength) 500 mg PO Q4HR PRN PRN Reason: Mild Pain or Fever >101 Stop: 08/25/17 16:52 Last Admin: 07/04/17 17:30 Dose: 500 mg Ascorbic Acid (Vitamin C) 500 mg PO DAILY [facility] Stop: 08/26/17 08:59 Last Admin: 07/06/17 09:15 Dose: 500 mg Carvedilol (Coreg) 3.125 mg PO BID [facility] Stop: 08/25/17 16:59 Last Admin: 07/06/17 09:17 Dose: 3.125 mg Glucagon (Glucagen) 1 mg IM PRN PRN PRN Reason: LOW BLOOD SUGAR Stop: 08/25/17 16:52 Phenytoin 200 mg/ Sodium (Chloride) 54 mls @ 100 mls/hr IV Q12H [facility] Stop: 08/30/17 16:59 Last Infusion: 07/06/17 06:34 Dose: Infused Cefepime HCl 2 gm/ Dextrose 100 mls @ 100 mls/hr IV Q12H [facility] Stop: 09/03/17 11:59 Last Admin: 07/06/17 12:33 Dose: 100 mls/hr Vancomycin HCl 1 gm/ Sodium (Chloride) 250 mls @ 165 mls/hr IV Q12H JOHN Stop: 09/03/17 21:59 Last Admin: 07/06/17 09:20 Dose: 165 mls/hr Insulin Aspart (Novolog Insulin Sliding Scale) 0 units SUBQ ACHS JOHN PRN Reason: Protocol Stop: 09/03/17 20:59 Last Admin: 07/06/17 12:31 Dose: Not Given Insulin Detemir (Levemir Insulin) 15 units SUBQ DAILY JOHN PRN Reason: Protocol Stop: 08/26/17 08:59 Last Admin: 07/06/17 09:21 Dose: 15 units Lactobacillus Rhamnosus (Culturelle 15b) 1 each PO DAILY JOHN Stop: 09/01/17 08:59 Last Admin: 07/06/17 09:16 Dose: 1 each Lactulose (Cephulac) 30 gm PO BID JOHN Stop: 08/31/17 16:59 Last Admin: 07/06/17 09:17 Dose: 30 gm Lisinopril (Zestril) 5 mg PO DAILY JOHN Stop: 08/26/17 08:59 Last Admin: 07/06/17 09:16 Dose: 5 mg Lorazepam (Ativan) 1 mg IVP Q4HR PRN; Protocol PRN Reason: SEIZURES Stop: 08/30/17 00:55 Last Admin: 07/04/17 21:21 Dose: 1 mg Lorazepam (Ativan) 1 mg IVP Q4HR PRN; Protocol PRN Reason: Agitation Stop: 09/03/17 08:09 Last Admin: 07/06/17 09:39 Dose: 1 mg Metoprolol Tartrate (Lopressor) 5 mg IV Q6H PRN PRN Reason: HR> 140 Stop: 08/30/17 00:56 Last Admin: 07/01/17 02:07 Dose: 5 mg Miscellaneous (Probiotic Screen) 1 ea PRN PRN PRN Reason: PROTOCOL Stop: 08/31/17 13:15 Miscellaneous (Vancomycin Iv Per Pharmacy) 1 ea PRN [facility] Stop: 09/03/17 10:59 Morphine Sulfate (Morphine) 2 mg IV Q4HR PRN PRN Reason: Pain (Moderate) Stop: 09/03/17 08:12 Last Admin: 07/05/17 15:20 Dose: 2 mg Pantoprazole Sodium (Protonix) 40 mg PO QDAC JOHN Stop: 08/26/17 07:29 Last Admin: 07/06/17 07:29 Dose: 40 mg General: no acute distress, well developed, well nourished HEENT: atraumatic, normocephalic, PERRLA, EOMI Neck: supple, no thyromegaly Cardiovascular: S1S2, regular Lungs: clear to auscultation bilaterally, clear to percussion Abdomen: soft, no tender, no distended, no mass Extremities: no cyanosis, no clubbing Neurological: awake, alert Skin: intact - Procedures Procedures: Procedures Procedure Code Date GROUP PSYCHOTHERAPY 89675 01/01/15 GROUP PSYCHOTHERAPY GZHZZZZ 01/01/15 OTHER GROUP THERAPY 94.44 11/05/14 Infectious Disease Assmt/Plan - Assessment Assessment: 1. Swelling of the right knee likely reactive versus septic arthritis. periprosthetic fracture. 2. Fracture of distal right femur. 3. Diabetes mellitus type 2. 4. Hypertension. 5. Hyperlipidemia. 6. UTI. 7. TKR of right knee. 8. breaktrough seizures. 9. s/p knee surgery. - Plan Plan: Will continue same treatment. . Nutritional Asmnt/Malnutr-PDOC - Dietary Evaluation Malnutrition Findings (Please click <Entered> for more info): Nutritional Asmnt/Malnutrition Start: 06/28/17 14: 16 Text: Status: Complete Freq: Document 06/28/17 14:16 LCMADIE (Rec: 06/28/17 14:32 [email or web address]) Nutritional Asmnt/Malnutrition Patient General Information Nutritional Screening High Risk Diagnosis right knee swelling Pertinent Medical Hx/Surgical Hx CVA, DM, HTN, [id number], DJD, hip and left knee fracture Subjective Information Pt was not available at time of visit. Pt is on NPO from midnight for possibel surgery today. Pt was on CCHO6-gm diet . Per EMR, PO intake 75-100%. Current Diet Order/ Nutrition Support NPO Pertinent Medications vit C, levemir, protonix, vancomycin Pertinent Labs 06/28 na 135, glucose 131 5/6 glucose 188 5/5 glucose 189, A1c 5.9 Nutritional Hx/Data Height 1.65 m Height (Calculated Centimeters) 165.1 Current Weight (lbs) 68.946 kg Weight (Calculated Kilograms) 68.9 Weight (Calculated Grams) 80273.0 [place] Body Weight 125 Body Mass Index (BMI) 25.2 Weight Status Overweight GI Symptoms GI Symptoms None Last BM 5/6 Difficult in: None Skin Integrity/Comment: right knee swollen Current %PO Good (75-100%) Estimated Nutritional Goals BEE in Kcals: Using Current wt Calories/Kcals/Kg 25-27 Kcals Calculated 7592-4456 Protein: Using Current wt Protein g/k Protein Calculated 69 Fluid: ml 1587-1863ml (1ml/kcal) Nutritional Problem 1. Problem Problem altered nutrition related labs Etiology hx of DM Signs/Symptoms: glucose 131-189, A1c 5.9 Malnutrition Alert Protein-Calorie Malnutrition N/A Is there a minimum of two criteria No selected? Query Text:Check all the applicable criteria. A minimum of two criteria are recommended for diagnosis of either severe or non-severe malnutrition. Intervention/Recommendation Comments 1. Resume CCHO-60gm diet as needed 2. Monitor PO intake, wt, labs and skin integrity 3. F/U as moderate risk in 3-5 days, 07/01-07/03 Expected Outcomes/Goals Expected Outcomes/Goals 1. PO intake to meet at least 75% of nutritional needs. 2. Wt stability, skin to remain intact, labs to approach WNL.
--- NOTE | 2017-07-06 19:25 | General Progress Note ---
Subjective - Review of Systems Service Date: 07/06/17 Subjective: Patient seen and examined s/p attempted ORIF for right femur fracture Objective - Results Result Diagrams: 07/05/17 04:05 07/05/17 04:05 Recent Labs: Laboratory Last Values WBC 8.3 Th/cmm (4.8-10.8) 07/05/17 04:05 RBC 3.81 Mil/cmm (3.80-5.10) 07/05/17 04:05 Hgb 11.7 gm/dL (12-16) L 07/05/17 04:05 Hct 34.7 % (41.0-60) L 07/05/17 04:05 MCV 91.2 fl (81-100) 07/05/17 04:05 MCH 30.8 pg (27.0-31.0) 07/05/17 04:05 MCHC Differential 33.8 pg (28.0-36.0) 07/05/17 04:05 RDW 13.0 % (11.5-20.0) 07/05/17 04:05 Plt Count 154 Th/cmm (150-400) 07/05/17 04:05 MPV 8.4 fl 07/05/17 04:05 Neutrophils % 57.9 % (40.0-80.0) 07/05/17 04:05 Lymphocytes % 27.2 % (20.0-50.0) 07/05/17 04:05 Monocytes % 8.2 % (2.0-10.0) 07/05/17 04:05 Eosinophils % 6.7 % (0.0-5.0) H 07/05/17 04:05 Basophils % 0.0 % (0.0-2.0) 07/05/17 04:05 PT 9.8 SECONDS (9.5-11.5) 07/05/17 06:25 INR 0.94 (0.5-1.4) 07/05/17 06:25 PTT (Actin FS) 23.5 SECONDS (26.0-38.0) L 07/05/17 06:25 Sodium 136 mEq/L (136-145) 07/05/17 04:05 Potassium 3.6 mEq/L (3.5-5.1) 07/05/17 04:05 Chloride 103 mEq/L (98-107) 07/05/17 04:05 Carbon Dioxide 25.0 mEq/L (21.0-31.0) 07/05/17 04:05 Anion Gap 11.6 (7.0-16.0) 07/05/17 04:05 BUN 9 mg/dL (7-25) 07/05/17 04:05 Creatinine 0.5 mg/dL (0.6-1.2) L 07/05/17 04:05 Est GFR ( Amer) > 60.0 ml/min (>90) 07/05/17 04:05 Est GFR (Non-Af Amer) > 60.0 ml/min 07/05/17 04:05 BUN/Creatinine Ratio 18.0 07/05/17 04:05 Glucose 130 mg/dL (70-105) H 07/05/17 04:05 POC Glucose 163 MG/DL (70 - 105) H 07/06/17 17:15 Hemoglobin A1c % 5.9 % (4.0-6.0) 06/26/17 13:45 Whole Bld Lactic Acid 1.22 mmol/L (0.60-1.99) 06/26/17 12:40 Calcium 9.3 mg/dL (8.6-10.3) 07/05/17 04:05 Total Bilirubin 0.4 mg/dL (0.3-1.0) 07/05/17 04:05 AST 15 U/L (13-39) 07/05/17 04:05 ALT 21 U/L (7-52) 07/05/17 04:05 Alkaline Phosphatase 254 U/L (34-104) H 07/05/17 04:05 Ammonia 93 umol/L (16-53) H 06/26/17 12:40 Troponin I < 0.01 ng/mL (0.01-0.05) L 06/26/17 12:40 Total Protein 6.3 gm/dL (6.0-8.3) 07/05/17 04:05 Albumin 3.4 gm/dL (3.7-5.3) L 07/05/17 04:05 Globulin 2.9 gm/dL 07/05/17 04:05 Albumin/Globulin Ratio 1.2 (1.0-1.8) 07/05/17 04:05 Urine Source [place] 05/14/18 04:05 Urine Color YELLOW 07/05/17 04:05 Urine Clarity HAZY (CLEAR) 07/05/17 04:05 Urine pH 6.0 (4.6 - 8.0) 07/05/17 04:05 Ur Specific [place] 1.010 (1.005-1.030) 07/05/17 04:05 Urine Protein NEGATIVE mg/dL (NEGATIVE) 07/05/17 04:05 Urine Glucose (UA) NEGATIVE mg/dL (NEGATIVE) 07/05/17 04:05 Urine Ketones NEGATIVE mg/dL (NEGATIVE) 07/05/17 04:05 Urine Blood TRACE (NEGATIVE) 07/05/17 04:05 Urine Nitrate NEGATIVE (NEGATIVE) 07/05/17 04:05 Urine Bilirubin NEGATIVE (NEGATIVE) 07/05/17 04:05 Urine Urobilinogen 0.2 E.U./dL (0.2 - 1.0) 07/05/17 04:05 Ur Leukocyte Esterase MODERATE (NEGATIVE) H 07/05/17 04:05 Urine RBC 0-2 /hpf (0-5) 07/05/17 04:05 Urine WBC 10-25 /hpf (0-5) H 07/05/17 04:05 Ur Epithelial Cells FEW /lpf (FEW) 07/05/17 04:05 Urine Bacteria FEW /hpf (NONE SEEN) 07/05/17 04:05 Urine Yeast MODERATE /hpf (NONE SEEN) H 07/05/17 04:05 Vancomycin Trough 11.2 ug/mL (5-10) H 07/06/17 09:00 Urine Opiates Screen POSITIVE (NEGATIVE) H 07/01/17 10:30 Urine Methadone Screen NEGATIVE (NEGATIVE) 07/01/17 10:30 Ur Barbiturates Screen POSITIVE (NEGATIVE) H 07/01/17 10:30 Phenytoin 21.4 ug/ml (10.0-20.0) H 07/03/17 05:48 Ur Tricyclics Screen NEGATIVE (NEGATIVE) 07/01/17 10:30 Ur Phencyclidine Scrn NEGATIVE (NEGATIVE) 07/01/17 10:30 Amphetamines Screen NEGATIVE (NEGATIVE) 07/01/17 10:30 U Methamphetamines Scrn NEGATIVE (NEGATIVE) 07/01/17 10:30 U Benzodiazepines Scrn POSITIVE (NEGATIVE) H 07/01/17 10:30 U Cocaine Metab Screen NEGATIVE (NEGATIVE) 07/01/17 10:30 U Cannabinoids Screen NEGATIVE (NEGATIVE) 07/01/17 10:30 Ethyl Alcohol < 10 mg/dL (0-10) 06/26/17 12:40 Serum Ketones NEGATIVE (NEGATIVE) 06/26/17 12:40 Blood Type O POSITIVE 07/04/17 23:55 Antibody Screen NEGATIVE 07/04/17 23:55 Crossmatch See Detail 07/04/17 23:55 - Physical Exam Vitals and I&O: Vital Signs Temp 98.9 F 07/06/17 16:00 Pulse 119 07/06/17 16:33 Resp 17 07/06/17 16:00 BP 138/79 07/06/17 16:33 Pulse Ox 97 07/06/17 16:00 Intake & Output 07/06/17 07/06/17 07/07/17 06:59 18:59 06:59 Intake Total 508 400 Output Total 1650 700 Balance -1142 -300 Weight (lbs) 63.004 kg 62.596 kg Intake: Intake, IV Amount 458 Cefepime 2 gm In Dextrose 100 5% 100 ml @ 100 mls/hr IV Q12H [facility] Rx#:[id number] Phenytoin 200 mg In 108 Sodium Chloride 0.9% 50 ml @ 100 mls/hr IV Q12H [facility] Rx#:[id number] Vancomycin HCl 1 gm In 250 Sodium Chloride 0.9% 250 ml @ 165 mls/hr IV Q12H [facility] Rx#:[id number] Oral 50 400 Output: Urine 1650 700 Other: Weight Source Estimated Bedscale Active Medications: Current Medications Acetaminophen (Tylenol Extra Strength) 500 mg PO Q4HR PRN PRN Reason: Mild Pain or Fever >101 Stop: 08/25/17 16:52 Last Admin: 07/04/17 17:30 Dose: 500 mg Ascorbic Acid (Vitamin C) 500 mg PO DAILY [facility] Stop: 08/26/17 08:59 Last Admin: 07/06/17 09:15 Dose: 500 mg Carvedilol (Coreg) 3.125 mg PO BID [facility] Stop: 08/25/17 16:59 Last Admin: 07/06/17 16:33 Dose: 3.125 mg Glucagon (Glucagen) 1 mg IM PRN PRN PRN Reason: LOW BLOOD SUGAR Stop: 08/25/17 16:52 Phenytoin 200 mg/ Sodium (Chloride) 54 mls @ 100 mls/hr IV Q12H [facility] Stop: 08/30/17 16:59 Last Admin: 07/06/17 17:10 Dose: 100 mls/hr Cefepime HCl 2 gm/ Dextrose 100 mls @ 100 mls/hr IV Q12H [facility] Stop: 09/03/17 11:59 Last Admin: 07/06/17 12:33 Dose: 100 mls/hr Vancomycin HCl 1 gm/ Sodium (Chloride) 250 mls @ 165 mls/hr IV Q12H [facility] Stop: 09/03/17 21:59 Last Admin: 07/06/17 09:20 Dose: 165 mls/hr Insulin Aspart (Novolog Insulin Sliding Scale) 0 units SUBQ ACHS JOHN PRN Reason: Protocol Stop: 09/03/17 20:59 Last Admin: 07/06/17 12:31 Dose: Not Given Insulin Detemir (Levemir Insulin) 15 units SUBQ DAILY [facility] PRN Reason: Protocol Stop: 08/26/17 08:59 Last Admin: 07/06/17 09:21 Dose: 15 units Lactobacillus Rhamnosus (Culturelle 15b) 1 each PO DAILY [facility] Stop: 09/01/17 08:59 Last Admin: 07/06/17 09:16 Dose: 1 each Lactulose (Cephulac) 30 gm PO BID [facility] Stop: 08/31/17 16:59 Last Admin: 07/06/17 16:35 Dose: 30 gm Lisinopril (Zestril) 5 mg PO DAILY [facility] Stop: 08/26/17 08:59 Last Admin: 07/06/17 09:16 Dose: 5 mg Lorazepam (Ativan) 1 mg IVP Q4HR PRN; Protocol PRN Reason: SEIZURES Stop: 08/30/17 00:55 Last Admin: 07/04/17 21:21 Dose: 1 mg Lorazepam (Ativan) 1 mg IVP Q4HR PRN; Protocol PRN Reason: Agitation Stop: 09/03/17 08:09 Last Admin: 07/06/17 16:35 Dose: 1 mg Metoprolol Tartrate (Lopressor) 5 mg IV Q6H PRN PRN Reason: HR> 140 Stop: 08/30/17 00:56 Last Admin: 07/01/17 02:07 Dose: 5 mg Miscellaneous (Probiotic Screen) 1 ea [facility] PRN PRN PRN Reason: PROTOCOL Stop: 08/31/17 13:15 Miscellaneous (Vancomycin Iv Per Pharmacy) 1 ea MC PRN [facility] Stop: 09/03/17 10:59 Morphine Sulfate (Morphine) 2 mg IV Q4HR PRN PRN Reason: Pain (Moderate) Stop: 09/03/17 08:12 Last Admin: 07/05/17 15:20 Dose: 2 mg Pantoprazole Sodium (Protonix) 40 mg PO QDAC [facility] Stop: 08/26/17 07:29 Last Admin: 07/06/17 07:29 Dose: 40 mg General: No acute distress Cardiovascular: Regular rate Lungs: Clear to auscultation Extremities: Edema, Other (Right leg wan traction ) - Procedures Procedures: Procedures Procedure Code Date GROUP PSYCHOTHERAPY 83449 01/01/15 GROUP PSYCHOTHERAPY GZHZZZZ 01/01/15 OTHER GROUP THERAPY 94.44 11/05/14 Assessment/Plan - Assessment Assessment: Right distal Femur displaced fracture Seizure UTI DM II HTN Menta health disorder - Plan Plan: Awaiting POST SPINLT per ortho Continue current treatment Plan of care discussed with nursing staff Nutritional Asmnt/Malnutr-PDOC - Dietary Evaluation Malnutrition Findings (Please click <Entered> for more info): Nutritional Asmnt/Malnutrition Start: 06/28/17 14: 16 Text: Status: Complete Freq: Document 06/28/17 14:16 LCFLACA (Rec: 06/28/17 14:32 [email or web address]) Nutritional Asmnt/Malnutrition Patient General Information Nutritional Screening High Risk Diagnosis right knee swelling Pertinent Medical Hx/Surgical Hx CVA, DM, HTN, [id number], DJD, hip and left knee fracture Subjective Information Pt was not available at time of visit. Pt is on NPO from midnight for possibel surgery today. Pt was on CCHO6-gm diet . Per EMR, PO intake 75-100%. Current Diet Order/ Nutrition Support NPO Pertinent Medications vit C, levemir, protonix, vancomycin Pertinent Labs 5/7 na 135, glucose 131 5/6 glucose 188 5/5 glucose 189, A1c 5.9 Nutritional Hx/Data Height 1.65 m Height (Calculated Centimeters) 165.1 Current Weight (lbs) 68.946 kg Weight (Calculated Kilograms) 68.9 Weight (Calculated Grams) 79788.0 [place] Body Weight 125 Body Mass Index (BMI) 25.2 Weight Status Overweight GI Symptoms GI Symptoms None Last BM 5/6 Difficult in: None Skin Integrity/Comment: right knee swollen Current %PO Good (75-100%) Estimated Nutritional Goals BEE in Kcals: Using Current wt Calories/Kcals/Kg 25-27 Kcals Calculated 8719-1634 Protein: Using Current wt Protein g/k Protein Calculated 69 Fluid: ml 1587-1863ml (1ml/kcal) Nutritional Problem 1. Problem Problem altered nutrition related labs Etiology hx of DM Signs/Symptoms: glucose 131-189, A1c 5.9 Malnutrition Alert Protein-Calorie Malnutrition N/A Is there a minimum of two criteria No selected? Query Text:Check all the applicable criteria. A minimum of two criteria are recommended for diagnosis of either severe or non-severe malnutrition. Intervention/Recommendation Comments 1. Resume CCHO-60gm diet as needed 2. Monitor PO intake, wt, labs and skin integrity 3. F/U as moderate risk in 3-5 days, 07/01-07/03 Expected Outcomes/Goals Expected Outcomes/Goals 1. PO intake to meet at least 75% of nutritional needs. 2. Wt stability, skin to remain intact, labs to approach WNL.
[2017-07-06] MEDS: Morphine Sulfate 4 mg/mL 1mL Syr IV PRN (23:42)
[2017-07-07] MEDS: INSULIN ASPART SLIDING SCALE 100 UNITS/ML UNIT SUBQ SCH ×4 (07:07→21:22)
[2017-07-07] MEDS: Pantoprazole 40 mg EC Tab PO SCH (07:08)
[2017-07-07] MEDS: Lactulose 10 Gm/15 mL 30mL UDC PO SCH ×2 (09:20→17:37)
[2017-07-07] MEDS: Lactobacillus Rhamnosus GG 15 Billion CFU CAP.SPRINK PO SCH (09:20)
[2017-07-07] MEDS: Multivitamin w/ Minerals Tab PO SCH (09:20)
[2017-07-07] MEDS: Insulin Detemir 100 units/mL 10mL Vial SUBQ SCH (09:21)
[2017-07-07] MEDS: Morphine Sulfate 4 mg/mL 1mL Syr IV PRN ×3 (10:40→21:28)
--- NOTE | 2017-07-07 13:53 | Infectious Disease Prog Note ---
Infectious Disease Subjective - Review of Systems Service Date: 07/07/17 Subjective: No fever, no chills. Infectious Disease Objective - Results Result Diagrams: 07/05/17 04:05 07/05/17 04:05 Recent Labs: Laboratory Last Values WBC 8.3 Th/cmm (4.8-10.8) 07/05/17 04:05 RBC 3.81 Mil/cmm (3.80-5.10) 07/05/17 04:05 Hgb 11.7 gm/dL (12-16) L 07/05/17 04:05 Hct 34.7 % (41.0-60) L 07/05/17 04:05 MCV 91.2 fl (81-100) 07/05/17 04:05 MCH 30.8 pg (27.0-31.0) 07/05/17 04:05 MCHC Differential 33.8 pg (28.0-36.0) 07/05/17 04:05 RDW 13.0 % (11.5-20.0) 07/05/17 04:05 Plt Count 154 Th/cmm (150-400) 07/05/17 04:05 MPV 8.4 fl 07/05/17 04:05 Neutrophils % 57.9 % (40.0-80.0) 07/05/17 04:05 Lymphocytes % 27.2 % (20.0-50.0) 07/05/17 04:05 Monocytes % 8.2 % (2.0-10.0) 07/05/17 04:05 Eosinophils % 6.7 % (0.0-5.0) H 07/05/17 04:05 Basophils % 0.0 % (0.0-2.0) 07/05/17 04:05 PT 9.8 SECONDS (9.5-11.5) 07/05/17 06:25 INR 0.94 (0.5-1.4) 07/05/17 06:25 PTT (Actin FS) 23.5 SECONDS (26.0-38.0) L 07/05/17 06:25 Sodium 136 mEq/L (136-145) 07/05/17 04:05 Potassium 3.6 mEq/L (3.5-5.1) 07/05/17 04:05 Chloride 103 mEq/L (98-107) 07/05/17 04:05 Carbon Dioxide 25.0 mEq/L (21.0-31.0) 07/05/17 04:05 Anion Gap 11.6 (7.0-16.0) 07/05/17 04:05 BUN 9 mg/dL (7-25) 07/05/17 04:05 Creatinine 0.5 mg/dL (0.6-1.2) L 07/05/17 04:05 Est GFR ( Amer) > 60.0 ml/min (>90) 07/05/17 04:05 Est GFR (Non-Af Amer) > 60.0 ml/min 07/05/17 04:05 BUN/Creatinine Ratio 18.0 07/05/17 04:05 Glucose 130 mg/dL (70-105) H 07/05/17 04:05 POC Glucose 156 MG/DL (70 - 105) H 07/07/17 11:28 Hemoglobin A1c % 5.9 % (4.0-6.0) 06/26/17 13:45 Whole Bld Lactic Acid 1.22 mmol/L (0.60-1.99) 06/26/17 12:40 Calcium 9.3 mg/dL (8.6-10.3) 07/05/17 04:05 Total Bilirubin 0.4 mg/dL (0.3-1.0) 07/05/17 04:05 AST 15 U/L (13-39) 07/05/17 04:05 ALT 21 U/L (7-52) 07/05/17 04:05 Alkaline Phosphatase 254 U/L (34-104) H 07/05/17 04:05 Ammonia 93 umol/L (16-53) H 06/26/17 12:40 Troponin I < 0.01 ng/mL (0.01-0.05) L 06/26/17 12:40 Total Protein 6.3 gm/dL (6.0-8.3) 07/05/17 04:05 Albumin 3.4 gm/dL (3.7-5.3) L 07/05/17 04:05 Globulin 2.9 gm/dL 07/05/17 04:05 Albumin/Globulin Ratio 1.2 (1.0-1.8) 07/05/17 04:05 Urine Source [place] 07/05/17 04:05 Urine Color YELLOW 07/05/17 04:05 Urine Clarity HAZY (CLEAR) 07/05/17 04:05 Urine pH 6.0 (4.6 - 8.0) 07/05/17 04:05 Ur Specific [place] 1.010 (1.005-1.030) 07/05/17 04:05 Urine Protein NEGATIVE mg/dL (NEGATIVE) 07/05/17 04:05 Urine Glucose (UA) NEGATIVE mg/dL (NEGATIVE) 07/05/17 04:05 Urine Ketones NEGATIVE mg/dL (NEGATIVE) 07/05/17 04:05 Urine Blood TRACE (NEGATIVE) 07/05/17 04:05 Urine Nitrate NEGATIVE (NEGATIVE) 07/05/17 04:05 Urine Bilirubin NEGATIVE (NEGATIVE) 07/05/17 04:05 Urine Urobilinogen 0.2 E.U./dL (0.2 - 1.0) 07/05/17 04:05 Ur Leukocyte Esterase MODERATE (NEGATIVE) H 07/05/17 04:05 Urine RBC 0-2 /hpf (0-5) 07/05/17 04:05 Urine WBC 10-25 /hpf (0-5) H 07/05/17 04:05 Ur Epithelial Cells FEW /lpf (FEW) 07/05/17 04:05 Urine Bacteria FEW /hpf (NONE SEEN) 07/05/17 04:05 Urine Yeast MODERATE /hpf (NONE SEEN) H 07/05/17 04:05 Vancomycin Trough 11.2 ug/mL (5-10) H 07/06/17 09:00 Urine Opiates Screen POSITIVE (NEGATIVE) H 07/01/17 10:30 Urine Methadone Screen NEGATIVE (NEGATIVE) 07/01/17 10:30 Ur Barbiturates Screen POSITIVE (NEGATIVE) H 07/01/17 10:30 Phenytoin 21.4 ug/ml (10.0-20.0) H 07/03/17 05:48 Ur Tricyclics Screen NEGATIVE (NEGATIVE) 07/01/17 10:30 Ur Phencyclidine Scrn NEGATIVE (NEGATIVE) 07/01/17 10:30 Amphetamines Screen NEGATIVE (NEGATIVE) 07/01/17 10:30 U Methamphetamines Scrn NEGATIVE (NEGATIVE) 07/01/17 10:30 U Benzodiazepines Scrn POSITIVE (NEGATIVE) H 07/01/17 10:30 U Cocaine Metab Screen NEGATIVE (NEGATIVE) 07/01/17 10:30 U Cannabinoids Screen NEGATIVE (NEGATIVE) 07/01/17 10:30 Ethyl Alcohol < 10 mg/dL (0-10) 06/26/17 12:40 Serum Ketones NEGATIVE (NEGATIVE) 06/26/17 12:40 Blood Type O POSITIVE 07/04/17 23:55 Antibody Screen NEGATIVE 07/04/17 23:55 Crossmatch See Detail 07/04/17 23:55 - Physical Exam Vitals and I&O: Vital Signs Temp 98.2 F 07/07/17 08:00 Pulse 105 07/07/17 09:20 Resp 18 07/07/17 08:00 BP 136/66 07/07/17 09:20 Pulse Ox 95 07/07/17 08:00 Intake & Output 07/06/17 07/07/17 07/07/17 18:59 06:59 18:59 Intake Total 650 604 54 Output Total 700 451 Balance -50 153 54 Weight (lbs) 62.596 kg 63.957 kg Intake: Intake, IV Amount 250 504 54 Cefepime 2 gm In Dextrose 200 5% 100 ml @ 100 mls/hr IV Q12H [facility] Rx#:[id number] Phenytoin 200 mg In 54 54 Sodium Chloride 0.9% 50 ml @ 100 mls/hr IV Q12H [facility] Rx#:[id number] Vancomycin HCl 1 gm In 250 250 Sodium Chloride 0.9% 250 ml @ 165 mls/hr IV Q12H [facility] Rx#:[id number] Oral 400 100 Output: Urine 700 450 Stool 1 Other: Stool Characteristics Formed Brown Weight Source Bedscale Bedscale Active Medications: Current Medications Acetaminophen (Tylenol Extra Strength) 500 mg PO Q4HR PRN PRN Reason: Mild Pain or Fever >101 Stop: 08/25/17 16:52 Last Admin: 07/04/17 17:30 Dose: 500 mg Ascorbic Acid (Vitamin C) 500 mg PO DAILY [facility] Stop: 08/26/17 08:59 Last Admin: 07/07/17 09:19 Dose: 500 mg Carvedilol (Coreg) 3.125 mg PO BID [facility] Stop: 08/25/17 16:59 Last Admin: 07/07/17 09:19 Dose: 3.125 mg Glucagon (Glucagen) 1 mg IM PRN PRN PRN Reason: LOW BLOOD SUGAR Stop: 08/25/17 16:52 Phenytoin 200 mg/ Sodium (Chloride) 54 mls @ 100 mls/hr IV Q12H [facility] Stop: 08/30/17 16:59 Last Infusion: 07/07/17 07:08 Dose: Infused Cefepime HCl 2 gm/ Dextrose 100 mls @ 100 mls/hr IV Q12H [facility] Stop: 09/03/17 11:59 Last Admin: 07/07/17 11:25 Dose: 100 mls/hr Vancomycin HCl 1 gm/ Sodium (Chloride) 250 mls @ 165 mls/hr IV Q12H [facility] Stop: 09/03/17 21:59 Last Admin: 07/07/17 10:36 Dose: 165 mls/hr Insulin Aspart (Novolog Insulin Sliding Scale) 0 units SUBQ ACHS JOHN PRN Reason: Protocol Stop: 09/03/17 20:59 Last Admin: 07/07/17 12:30 Dose: Not Given Insulin Detemir (Levemir Insulin) 15 units SUBQ DAILY JOHN PRN Reason: Protocol Stop: 08/26/17 08:59 Last Admin: 07/07/17 09:21 Dose: 15 units Lactobacillus Rhamnosus (Culturelle 15b) 1 each PO DAILY [facility] Stop: 09/01/17 08:59 Last Admin: 07/07/17 09:20 Dose: 1 each Lactulose (Cephulac) 30 gm PO BID [facility] Stop: 08/31/17 16:59 Last Admin: 07/07/17 09:20 Dose: 30 gm Lisinopril (Zestril) 5 mg PO DAILY [facility] Stop: 08/26/17 08:59 Last Admin: 07/07/17 09:20 Dose: 5 mg Lorazepam (Ativan) 1 mg IVP Q4HR PRN; Protocol PRN Reason: SEIZURES Stop: 08/30/17 00:55 Last Admin: 07/07/17 02:31 Dose: 1 mg Lorazepam (Ativan) 1 mg IVP Q4HR PRN; Protocol PRN Reason: Agitation Stop: 09/03/17 08:09 Last Admin: 07/06/17 16:35 Dose: 1 mg Metoprolol Tartrate (Lopressor) 5 mg IV Q6H PRN PRN Reason: HR> 140 Stop: 08/30/17 00:56 Last Admin: 07/01/17 02:07 Dose: 5 mg Miscellaneous (Probiotic Screen) 1 ea PRN PRN PRN Reason: PROTOCOL Stop: 08/31/17 13:15 Miscellaneous (Vancomycin Iv Per Pharmacy) 1 ea PRN [facility] Stop: 09/03/17 10:59 Morphine Sulfate (Morphine) 2 mg IV Q4HR PRN PRN Reason: Pain (Moderate) Stop: 09/03/17 08:12 Last Admin: 07/07/17 10:40 Dose: 2 mg Nystatin (Nystop) 100 units TP BID [facility] Stop: 09/05/17 16:59 Pantoprazole Sodium (Protonix) 40 mg PO QDAC [facility] Stop: 08/26/17 07:29 Last Admin: 07/07/17 07:08 Dose: 40 mg General: no acute distress, well developed, well nourished HEENT: atraumatic, normocephalic, PERRLA, EOMI, moist mucous membrane Neck: supple, no thyromegaly Cardiovascular: S1S2, regular Lungs: clear to auscultation bilaterally, clear to percussion Abdomen: soft, no tender Extremities: no cyanosis, no clubbing, no edema Neurological: awake, alert Skin: intact - Procedures Procedures: Procedures Procedure Code Date GROUP PSYCHOTHERAPY 68924 01/01/15 GROUP PSYCHOTHERAPY GZHZZZZ 01/01/15 OTHER GROUP THERAPY 94.44 11/05/14 Infectious Disease Assmt/Plan - Assessment Assessment: 1. Swelling of the right knee likely reactive versus septic arthritis. periprosthetic fracture. 2. Fracture of distal right femur. 3. Diabetes mellitus type 2. 4. Hypertension. 5. Hyperlipidemia. 6. UTI. 7. TKR of right knee. 8. breaktrough seizures. 9. s/p knee surgery. - Plan Plan: Will continue same treatment. . Nutritional Asmnt/Malnutr-PDOC - Dietary Evaluation Malnutrition Findings (Please click <Entered> for more info): Nutritional Asmnt/Malnutrition Start: 06/28/17 14: 16 Text: Status: Complete Freq: Document 06/28/17 14:16 VINNIE (Rec: 06/28/17 14:32 [id number]) Nutritional Asmnt/Malnutrition Patient General Information Nutritional Screening High Risk Diagnosis right knee swelling Pertinent Medical Hx/Surgical Hx CVA, DM, HTN, [id number], DJD, hip and left knee fracture Subjective Information Pt was not available at time of visit. Pt is on NPO from midnight for possibel surgery today. Pt was on CCHO6-gm diet . Per EMR, PO intake 75-100%. Current Diet Order/ Nutrition Support NPO Pertinent Medications vit C, levemir, protonix, vancomycin Pertinent Labs 06/28 na 135, glucose 131 5/6 glucose 188 5/5 glucose 189, A1c 5.9 Nutritional Hx/Data Height 1.65 m Height (Calculated Centimeters) 165.1 Current Weight (lbs) 68.946 kg Weight (Calculated Kilograms) 68.9 Weight (Calculated Grams) 82391.0 [place] Body Weight 125 Body Mass Index (BMI) 25.2 Weight Status Overweight GI Symptoms GI Symptoms None Last BM 5/6 Difficult in: None Skin Integrity/Comment: right knee swollen Current %PO Good (75-100%) Estimated Nutritional Goals BEE in Kcals: Using Current wt Calories/Kcals/Kg 25-27 Kcals Calculated 1094-3762 Protein: Using Current wt Protein g/k Protein Calculated 69 Fluid: ml 1587-1863ml (1ml/kcal) Nutritional Problem 1. Problem Problem altered nutrition related labs Etiology hx of DM Signs/Symptoms: glucose 131-189, A1c 5.9 Malnutrition Alert Protein-Calorie Malnutrition N/A Is there a minimum of two criteria No selected? Query Text:Check all the applicable criteria. A minimum of two criteria are recommended for diagnosis of either severe or non-severe malnutrition. Intervention/Recommendation Comments 1. Resume CCHO-60gm diet as needed 2. Monitor PO intake, wt, labs and skin integrity 3. F/U as moderate risk in 3-5 days, 07/01-07/03 Expected Outcomes/Goals Expected Outcomes/Goals 1. PO intake to meet at least 75% of nutritional needs. 2. Wt stability, skin to remain intact, labs to approach WNL.
[2017-07-07] MEDS: NYSTATIN 100000 UNITS/GM POWD TP SCH (17:37)
--- NOTE | 2017-07-07 21:21 | General Progress Note ---
Subjective - Review of Systems Service Date: 07/07/17 Subjective: Patient seen and examined s/p post splint Objective - Results Result Diagrams: 07/05/17 04:05 07/05/17 04:05 Recent Labs: Laboratory Last Values WBC 8.3 Th/cmm (4.8-10.8) 07/05/17 04:05 RBC 3.81 Mil/cmm (3.80-5.10) 07/05/17 04:05 Hgb 11.7 gm/dL (12-16) L 07/05/17 04:05 Hct 34.7 % (41.0-60) L 07/05/17 04:05 MCV 91.2 fl (81-100) 07/05/17 04:05 MCH 30.8 pg (27.0-31.0) 07/05/17 04:05 MCHC Differential 33.8 pg (28.0-36.0) 07/05/17 04:05 RDW 13.0 % (11.5-20.0) 07/05/17 04:05 Plt Count 154 Th/cmm (150-400) 07/05/17 04:05 MPV 8.4 fl 07/05/17 04:05 Neutrophils % 57.9 % (40.0-80.0) 07/05/17 04:05 Lymphocytes % 27.2 % (20.0-50.0) 07/05/17 04:05 Monocytes % 8.2 % (2.0-10.0) 07/05/17 04:05 Eosinophils % 6.7 % (0.0-5.0) H 07/05/17 04:05 Basophils % 0.0 % (0.0-2.0) 07/05/17 04:05 PT 9.8 SECONDS (9.5-11.5) 07/05/17 06:25 INR 0.94 (0.5-1.4) 07/05/17 06:25 PTT (Actin FS) 23.5 SECONDS (26.0-38.0) L 07/05/17 06:25 Sodium 136 mEq/L (136-145) 07/05/17 04:05 Potassium 3.6 mEq/L (3.5-5.1) 07/05/17 04:05 Chloride 103 mEq/L (98-107) 07/05/17 04:05 Carbon Dioxide 25.0 mEq/L (21.0-31.0) 07/05/17 04:05 Anion Gap 11.6 (7.0-16.0) 07/05/17 04:05 BUN 9 mg/dL (7-25) 07/05/17 04:05 Creatinine 0.5 mg/dL (0.6-1.2) L 07/05/17 04:05 Est GFR ( Amer) > 60.0 ml/min (>90) 07/05/17 04:05 Est GFR (Non-Af Amer) > 60.0 ml/min 07/05/17 04:05 BUN/Creatinine Ratio 18.0 07/05/17 04:05 Glucose 130 mg/dL (70-105) H 07/05/17 04:05 POC Glucose 103 MG/DL (70 - 105) 07/07/17 16:57 Hemoglobin A1c % 5.9 % (4.0-6.0) 06/26/17 13:45 Whole Bld Lactic Acid 1.22 mmol/L (0.60-1.99) 06/26/17 12:40 Calcium 9.3 mg/dL (8.6-10.3) 07/05/17 04:05 Total Bilirubin 0.4 mg/dL (0.3-1.0) 07/05/17 04:05 AST 15 U/L (13-39) 07/05/17 04:05 ALT 21 U/L (7-52) 07/05/17 04:05 Alkaline Phosphatase 254 U/L (34-104) H 07/05/17 04:05 Ammonia 93 umol/L (16-53) H 06/26/17 12:40 Troponin I < 0.01 ng/mL (0.01-0.05) L 06/26/17 12:40 Total Protein 6.3 gm/dL (6.0-8.3) 07/05/17 04:05 Albumin 3.4 gm/dL (3.7-5.3) L 07/05/17 04:05 Globulin 2.9 gm/dL 07/05/17 04:05 Albumin/Globulin Ratio 1.2 (1.0-1.8) 07/05/17 04:05 Urine Source [place] 07/05/17 04:05 Urine Color YELLOW 07/05/17 04:05 Urine Clarity HAZY (CLEAR) 07/05/17 04:05 Urine pH 6.0 (4.6 - 8.0) 07/05/17 04:05 Ur Specific [place] 1.010 (1.005-1.030) 07/05/17 04:05 Urine Protein NEGATIVE mg/dL (NEGATIVE) 07/05/17 04:05 Urine Glucose (UA) NEGATIVE mg/dL (NEGATIVE) 07/05/17 04:05 Urine Ketones NEGATIVE mg/dL (NEGATIVE) 07/05/17 04:05 Urine Blood TRACE (NEGATIVE) 07/05/17 04:05 Urine Nitrate NEGATIVE (NEGATIVE) 07/05/17 04:05 Urine Bilirubin NEGATIVE (NEGATIVE) 07/05/17 04:05 Urine Urobilinogen 0.2 E.U./dL (0.2 - 1.0) 07/05/17 04:05 Ur Leukocyte Esterase MODERATE (NEGATIVE) H 07/05/17 04:05 Urine RBC 0-2 /hpf (0-5) 07/05/17 04:05 Urine WBC 10-25 /hpf (0-5) H 07/05/17 04:05 Ur Epithelial Cells FEW /lpf (FEW) 07/05/17 04:05 Urine Bacteria FEW /hpf (NONE SEEN) 07/05/17 04:05 Urine Yeast MODERATE /hpf (NONE SEEN) H 07/05/17 04:05 Vancomycin Trough 11.2 ug/mL (5-10) H 07/06/17 09:00 Urine Opiates Screen POSITIVE (NEGATIVE) H 07/01/17 10:30 Urine Methadone Screen NEGATIVE (NEGATIVE) 07/01/17 10:30 Ur Barbiturates Screen POSITIVE (NEGATIVE) H 07/01/17 10:30 Phenytoin 21.4 ug/ml (10.0-20.0) H 07/03/17 05:48 Ur Tricyclics Screen NEGATIVE (NEGATIVE) 07/01/17 10:30 Ur Phencyclidine Scrn NEGATIVE (NEGATIVE) 07/01/17 10:30 Amphetamines Screen NEGATIVE (NEGATIVE) 07/01/17 10:30 U Methamphetamines Scrn NEGATIVE (NEGATIVE) 07/01/17 10:30 U Benzodiazepines Scrn POSITIVE (NEGATIVE) H 07/01/17 10:30 U Cocaine Metab Screen NEGATIVE (NEGATIVE) 07/01/17 10:30 U Cannabinoids Screen NEGATIVE (NEGATIVE) 07/01/17 10:30 Ethyl Alcohol < 10 mg/dL (0-10) 06/26/17 12:40 Serum Ketones NEGATIVE (NEGATIVE) 06/26/17 12:40 Blood Type O POSITIVE 07/04/17 23:55 Antibody Screen NEGATIVE 07/04/17 23:55 Crossmatch See Detail 07/04/17 23:55 - Physical Exam Vitals and I&O: Vital Signs Temp 97.4 F 07/07/17 16:00 Pulse 101 07/07/17 17:42 Resp 18 07/07/17 16:00 BP 114/63 07/07/17 17:42 Pulse Ox 97 07/07/17 16:00 Intake & Output 07/07/17 07/07/17 07/08/17 06:59 18:59 06:59 Intake Total 604 654 350 Output Total 451 1000 Balance 153 -346 350 Weight (lbs) 63.957 kg 63.957 kg Intake: Intake, IV Amount 504 54 350 Cefepime 2 gm In Dextrose 200 100 5% 100 ml @ 100 mls/hr IV Q12H [facility] Rx#:[id number] Phenytoin 200 mg In 54 54 Sodium Chloride 0.9% 50 ml @ 100 mls/hr IV Q12H [facility] Rx#:[id number] Vancomycin HCl 1 gm In 250 250 Sodium Chloride 0.9% 250 ml @ 165 mls/hr IV Q12H [facility] Rx#:[id number] Oral 100 600 Output: Urine 450 1000 Stool 1 Other: # Bowel Movements 0 Stool Characteristics Formed [place] Weight Source Bedscale Bedscale Active Medications: Current Medications Acetaminophen (Tylenol Extra Strength) 500 mg PO Q4HR PRN PRN Reason: Mild Pain or Fever >101 Stop: 08/25/17 16:52 Last Admin: 07/04/17 17:30 Dose: 500 mg Ascorbic Acid (Vitamin C) 500 mg PO DAILY [facility] Stop: 08/26/17 08:59 Last Admin: 07/07/17 09:19 Dose: 500 mg Carvedilol (Coreg) 3.125 mg PO BID [facility] Stop: 08/25/17 16:59 Last Admin: 07/07/17 17:42 Dose: 3.125 mg Glucagon (Glucagen) 1 mg IM PRN PRN PRN Reason: LOW BLOOD SUGAR Stop: 08/25/17 16:52 Phenytoin 200 mg/ Sodium (Chloride) 54 mls @ 100 mls/hr IV Q12H [facility] Stop: 08/30/17 16:59 Last Admin: 07/07/17 17:40 Dose: Not Given Cefepime HCl 2 gm/ Dextrose 100 mls @ 100 mls/hr IV Q12H [facility] Stop: 09/03/17 11:59 Last Infusion: 07/07/17 21:16 Dose: Infused Vancomycin HCl 1 gm/ Sodium (Chloride) 250 mls @ 165 mls/hr IV Q12H [facility] Stop: 09/03/17 21:59 Last Infusion: 07/07/17 21:15 Dose: Infused Insulin Aspart (Novolog Insulin Sliding Scale) 0 units SUBQ ACHS JOHN PRN Reason: Protocol Stop: 09/03/17 20:59 Last Admin: 07/07/17 17:36 Dose: Not Given Insulin Detemir (Levemir Insulin) 15 units SUBQ DAILY JOHN PRN Reason: Protocol Stop: 08/26/17 08:59 Last Admin: 07/07/17 09:21 Dose: 15 units Lactobacillus Rhamnosus (Culturelle 15b) 1 each PO DAILY [facility] Stop: 09/01/17 08:59 Last Admin: 07/07/17 09:20 Dose: 1 each Lactulose (Cephulac) 30 gm PO BID [facility] Stop: 08/31/17 16:59 Last Admin: 07/07/17 17:37 Dose: 30 gm Lisinopril (Zestril) 5 mg PO DAILY [facility] Stop: 08/26/17 08:59 Last Admin: 07/07/17 09:20 Dose: 5 mg Lorazepam (Ativan) 1 mg IVP Q4HR PRN; Protocol PRN Reason: SEIZURES Stop: 08/30/17 00:55 Last Admin: 07/07/17 02:31 Dose: 1 mg Lorazepam (Ativan) 1 mg IVP Q4HR PRN; Protocol PRN Reason: Agitation Stop: 09/03/17 08:09 Last Admin: 07/06/17 16:35 Dose: 1 mg Metoprolol Tartrate (Lopressor) 5 mg IV Q6H PRN PRN Reason: HR> 140 Stop: 08/30/17 00:56 Last Admin: 07/01/17 02:07 Dose: 5 mg Miscellaneous (Probiotic Screen) 1 ea [facility] PRN PRN PRN Reason: PROTOCOL Stop: 08/31/17 13:15 Miscellaneous (Vancomycin Iv Per Pharmacy) 1 ea MC PRN [facility] Stop: 09/03/17 10:59 Morphine Sulfate (Morphine) 2 mg IV Q4HR PRN PRN Reason: Pain (Moderate) Stop: 09/03/17 08:12 Last Admin: 07/07/17 17:37 Dose: 2 mg Nystatin (Nystop) 100,000 units TP BID [facility] Stop: 09/05/17 16:59 Last Admin: 07/07/17 17:37 Dose: 100,000 units Pantoprazole Sodium (Protonix) 40 mg PO QDAC [facility] Stop: 08/26/17 07:29 Last Admin: 07/07/17 07:08 Dose: 40 mg General: No acute distress Cardiovascular: Regular rate Lungs: Clear to auscultation Abdomen: Soft Extremities: Edema, Other (right leg splint) Neurological: Other (sleepy) - Procedures Procedures: Procedures Procedure Code Date GROUP PSYCHOTHERAPY 92260 01/01/15 GROUP PSYCHOTHERAPY GZHZZZZ 01/01/15 OTHER GROUP THERAPY 94.44 11/05/14 REPOSITION LEFT FEMORAL SHAFT, EXTERNAL APPROACH [id number] 06/26/17 Assessment/Plan - Assessment Assessment: Right distal Femur displaced fracture Seizure UTI DM II HTN Menta health disorder - Plan Plan: s/p POST SPINLT per ortho DC back to [facility] Continue current treatment Plan of care discussed with nursing staff Nutritional Asmnt/Malnutr-PDOC - Dietary Evaluation Malnutrition Findings (Please click <Entered> for more info): Nutritional Asmnt/Malnutrition Start: 06/28/17 14: 16 Text: Status: Complete Freq: Document 06/28/17 14:16 VINNIE (Rec: 06/28/17 14:32 [facility] Nutritional Asmnt/Malnutrition Patient General Information Nutritional Screening High Risk Diagnosis right knee swelling Pertinent Medical Hx/Surgical Hx CVA, DM, HTN, [id number], DJD, hip and left knee fracture Subjective Information Pt was not available at time of visit. Pt is on NPO from midnight for possibel surgery today. Pt was on CCHO6-gm diet . Per EMR, PO intake 75-100%. Current Diet Order/ Nutrition Support NPO Pertinent Medications vit C, levemir, protonix, vancomycin Pertinent Labs 06/28 na 135, glucose 131 5/6 glucose 188 5/5 glucose 189, A1c 5.9 Nutritional Hx/Data Height 1.65 m Height (Calculated Centimeters) 165.1 Current Weight (lbs) 68.946 kg Weight (Calculated Kilograms) 68.9 Weight (Calculated Grams) 41248.0 [place] Body Weight 125 Body Mass Index (BMI) 25.2 Weight Status Overweight GI Symptoms GI Symptoms None Last BM 5/6 Difficult in: None Skin Integrity/Comment: right knee swollen Current %PO Good (75-100%) Estimated Nutritional Goals BEE in Kcals: Using Current wt Calories/Kcals/Kg 25-27 Kcals Calculated 4824-8513 Protein: Using Current wt Protein g/k Protein Calculated 69 Fluid: ml 1587-1863ml (1ml/kcal) Nutritional Problem 1. Problem Problem altered nutrition related labs Etiology hx of DM Signs/Symptoms: glucose 131-189, A1c 5.9 Malnutrition Alert Protein-Calorie Malnutrition N/A Is there a minimum of two criteria No selected? Query Text:Check all the applicable criteria. A minimum of two criteria are recommended for diagnosis of either severe or non-severe malnutrition. Intervention/Recommendation Comments 1. Resume CCHO-60gm diet as needed 2. Monitor PO intake, wt, labs and skin integrity 3. F/U as moderate risk in 3-5 days, 07/01-07/03 Expected Outcomes/Goals Expected Outcomes/Goals 1. PO intake to meet at least 75% of nutritional needs. 2. Wt stability, skin to remain intact, labs to approach WNL.
--- NOTE | 2017-07-08 03:32 | Progress Notes ---
DATE: 07/07/2017 SUBJECTIVE: The patient in bed. The patient is somewhat lethargic. She had been given some Ativan, pain medications. No repeat seizures. The patient ____. MEDICATION: Lorazepam p.r.n. and phenytoin 200 mg every 12 hours. OBJECTIVE: VITAL SIGNS: Temperature 97.8, blood pressure 110/60, and pulse is 102. NECK: Supple. No neck bruits. CARDIOVASCULAR: Heart sounds S1, S2. LUNGS: Clear. NEUROLOGIC: The patient is kind of sleepy at the moment and does not respond much. EXTREMITIES: The patient will lift upper extremity, limited lower extremity. ASSESSMENT: 1. Seizures. 2. Falls. 3. Dementia. 4. MR. 5. Diabetes. 5. Coronary artery disease. 6. Hyperlipidemia. PLAN: Continue present treatment. We will monitor the patient's Dilantin level. JOB# [id number]
[2017-07-08] MEDS: Pantoprazole 40 mg EC Tab PO SCH (06:39)
[2017-07-08] MEDS: INSULIN ASPART SLIDING SCALE 100 UNITS/ML UNIT SUBQ SCH ×2 (06:42→12:45)
[2017-07-08 07:00] LABS: ANION GAP 10.8 (7.0-16.0); BUN - UREA NITROGEN 19 mg/dL (7-25); CALCIUM SERUM 9.1 mg/dL (8.6-10.3); CARBON DIOXIDE 25.8 mEq/L (21.0-31.0); CHLORIDE 103 mEq/L (98-107); CREATININE - SERUM 0.6 mg/dL (0.6-1.2); GFR AFRICAN-AMERICAN > 60.0 ml/min (>90); GFR NON AFRICAN-AMERICAN > 60.0 ml/min; GLUCOSE 114 mg/dL (70-105); POTASSIUM SERUM 3.6 mEq/L (3.5-5.1); SODIUM SERUM 136 mEq/L (136-145)
--- NOTE | 2017-07-08 08:23 | Consultation ---
DATE OF CONSULTATION: 07/08/2017 PSYCHIATRIC CONSULT PATIENT'S AGE: 61. SEX: Female. PHYSICIAN: Dr. Jc. PROCESS SAFETY MANAGEMENT ENGINEER: Dr. Perez. TYPE OF THE REPORT: Psychiatric consult. REASON FOR THE CONSULT: Agitation. HISTORY OF PRESENT ILLNESS: The patient is a 61-year-old female who was admitted to the hospital because of right knee swelling and pain. The patient also has history of hyperlipidemia and hypertension as well as diabetes mellitus and cerebrovascular disease. The patient has been agitated and has been trying to pull IVs and was asked to evaluate the patient. Chart reviewed and patient interviewed and discussed the patient's condition with the staff and reviewed records and labs. The patient is still in angry and in irritable mood. The patient was not able to answer any of my questions and kept yelling at me and fidgety. The patient also was seemed to be confused, when I was asking about her hospital stay or her date or where she lives and she was not able to give me any coherent answer and kept trying to pull things around her, although she has mittens in her hands, but she kept moving her hands. She also was in irritable and angry mood. I was not able to get more information from the patient because of her confusion and agitation. PAST PSYCHIATRIC HISTORY: Seems that patient has history of what seems to be dementia and also history of psychosis. PAST MEDICAL HISTORY: The patient, as mentioned above, was admitted with swelling of the knee and other medical problems. SOCIAL HISTORY: The patient lives in [facility]. No known alcohol or drug use. No other information available at this time. ALLERGIES: No known allergies. MENTAL STATUS EXAM: The patient appears her stated age. Anxious. In irritable mood. Easily agitated. Thought processes are with poverty of speech and with confusion and incoherent. The patient is alert, but seems to be disoriented to time, place, person and situation. Poor insight and poor judgment. ASSESSMENT: PRIMARY DIAGNOSIS: Unspecified psychosis. SECONDARY DIAGNOSIS: Rule out dementia with psychosis. TREATMENT PLAN: We will monitor the patient's behavior closely. We will start the patient on Seroquel and we will adjust the dose and we will monitor behavior. Thanks to Dr. Jc and will follow up with you. JOB# [id number]
[2017-07-08] MEDS: NYSTATIN 100000 UNITS/GM POWD TP SCH (09:09)
[2017-07-08] MEDS: Lactulose 10 Gm/15 mL 30mL UDC PO SCH (09:09)
[2017-07-08] MEDS: Lactobacillus Rhamnosus GG 15 Billion CFU CAP.SPRINK PO SCH (09:10)
[2017-07-08] MEDS: Multivitamin w/ Minerals Tab PO SCH (09:10)
[2017-07-08] MEDS: Insulin Detemir 100 units/mL 10mL Vial SUBQ SCH (09:16)
[2017-07-08] MEDS: Morphine Sulfate 4 mg/mL 1mL Syr IV PRN (12:10)
== END 2017-07-08 13:00 | DRG 560 ==
LOC: ER 11:13 → MSI 14:26 → ICU 07-01 00:20 → TELE 07-05 12:26
PROVIDERS: ADMIT Family Medicine; ATTEND Family Medicine
PROC: 0QS9XZZ Reposition Left Femoral Shaft, External Approach (ICD-10-PCS; principal; 2017-07-05)
DX: M97.11XA Periprosthetic fracture around internal prosthetic right knee joint, initial encounter (principal); N39.0 Urinary tract infection, site not specified; F03.91 Unspecified dementia, unspecified severity, with behavioral disturbance; I69.30 Unspecified sequelae of cerebral infarction; I10 Essential (primary) hypertension; R13.10 Dysphagia, unspecified; E78.5 Hyperlipidemia, unspecified; G40.909 Epilepsy, unspecified, not intractable, without status epilepticus; E11.9 Type 2 diabetes mellitus without complications; I25.10 Atherosclerotic heart disease of native coronary artery without angina pectoris; M16.10 Unilateral primary osteoarthritis, unspecified hip; M17.10 Unilateral primary osteoarthritis, unspecified knee; Z96.651 Presence of right artificial knee joint; I34.0 Nonrheumatic mitral (valve) insufficiency; Z88.5 Allergy status to narcotic agent; Z88.8 Allergy status to other drugs, medicaments and biological substances; Z91.81 History of falling
CPT/HCPCS: 36415-UA; 70450-TC; 71045-TC; 73562-TC-RT; 76000-TC; 80048-TC; 80053-TC; 80185-TC; 80202-TC; 80307; 80320-TC; 81001-TC; 82010-TC; 82140-TC; 82948-90; 83036-90; 83605; 84484-TC; 85025-TC; 85610-TC; 85730-TC; 86850-TC; 86900-TC; 86901-TC; 86922-TC; 87086-90; 90799; 93005; 94760; 96372; 96375; J0692; J1165; J1170; J1650; J1815; J1885; J1953; J2001; J2060; J2704; J2710; J3370; J7030; X3900; X5716; X6258; X6614; Z7610